=== PATIENT | male | born 1960 | race Caucasian/White ===

== ENCOUNTER 2017-10-28 08:34 | Outpatient (CLI) | payer BC ==
[2017-10-28] MEDS ORDERED: Gadobenate Dimeglumine 529 MG/1 ML (20ML VIAL) ONE (17:00)
== END 2017-10-28 08:35 | disposition home or self-care (01) ==
LOC: BICMRI 08:34
PROVIDERS: ATTEND Specialist
DX: M54.12 Radiculopathy, cervical region (principal); M48.02 Spinal stenosis, cervical region; M99.81 Other biomechanical lesions of cervical region; M96.1 Postlaminectomy syndrome, not elsewhere classified; M51.16 Intervertebral disc disorders with radiculopathy, lumbar region; M99.83 Other biomechanical lesions of lumbar region; Z98.1 Arthrodesis status
CPT/HCPCS: 72141; 72158; A9579

== ENCOUNTER 2018-10-17 19:57 | Emergency (ER) | payer MEDICARE, BC ==
[2018-10-17 20:37] LABS: #Eosinphils 0.1 thou/uL (0.0-0.7); #Monocytes 0.5 thou/uL (0.11-0.59); #Neutrophils 9.1 thou/uL (1.40-6.50); %Basophils 0.1 % (0.0-1.0); %Eosinophils 1.3 % (0.0-10.0); %Lymphocytes 9.2 % (21.0-51.0); %Neutrophils 84.4 % (42.0-75.0); Hemoglobin 11.1 g/dL (14.0-18.0); Mean Corpuscular HGB CONC 34.4 g/dL (32.0-36.0); Mean Corpuscular Hemoglobin 28.3 pg (27.0-31.0); Mean Corpuscular Volume 82.2 fL (78.0-98.0); Mean Platelet Volume 7.1 fL (7.4-10.4); Platelet Count 202 thou/uL (130-400); RBC Distribution Width 13.2 % (11.5-14.5); Red Blood Cell (RBC) Count 3.93 mill/uL (4.70-6.10); White Blood Cell (WBC) Count 10.8 thou/uL (4.8-10.8)
--- NOTE | 2018-10-17 20:54 | CT ---
CT ABDOMEN AND PELVIS WITHOUT IV CONTRAST: HISTORY: Dysuria. Flank pain. FINDINGS: The lung bases are clear. Status post cholecystectomy. Mild fatty changes in the liver. The visual ized pancreas, spleen, and adrenal glands are unremarkable. There is no evidence for renal calculus or acute obstruction. There is some minimal bilateral perirenal fat stranding, which is more dustin ed on the left side. This is a nonspecific finding but could potentially be seen in cases of left re nal infection or inflammation, including pyelonephritis. Multilevel laminectomy changes of the lumba r spine. Normal appearing appendix. Unremarkable appearing urinary bladder with numerous post surgi joann changes in the pelvis. IMPRESSION: 1. Left perirenal nonspecific fat stranding without calculus or genitourinary obstruction, although this certainly is a finding that could be seen with left renal infection or inflammation, including p yelonephritis. 2. Normal appearing appendix. 3. Postoperative laminectomy changes. 4. Postoperative cholecystectomy without dictation dilatation. 5. Fatty changes in the liver. 6. Post surgical changes in the pelvis. POS: NASRA
[2018-10-17 20:59] LABS: ALT (SGPT) 35 U/L (8-55); AST (SGOT) 17 U/L (5-34); Albumin 3.4 g/dL (3.5-5.0); Alkaline Phosphatase 212 U/L (40-150); Anion Gap 17 mmol/L (10-20); BUN (Urea Nitrogen) 20 mg/dL (8.4-25.7); Bilirubin, Total 0.6 mg/dL (0.2-1.2); Calc. Creatinine Clearance 0 mL/min (70-130); Calcium 8.8 mg/dL (7.8-10.44); Carbon Dioxide 22 mmol/L (22-29); Chloride 92 mmol/L (98-107); Estimated GFR-MDRD 62; Glucose 545 mg/dL (70-105); Protein, Total 6.4 g/dL (6.0-8.3); Sodium 127 mmol/L (136-145)
[2018-10-17 21:28] LABS: Bilirubin Negative (Negative); Blood, Urine Small (Negative); Clarity CLEAR (Clear); Glucose, Urine (Dipstick) >=1000 mg/dL (Negative); Leukocyte Negative (Negative); Nitrite Negative (Negative); Protein, Urine (Dipstick) Negative (Neg-Trace); Specific Gravity, Urine 1.025 (1.002-1.036)
[2018-10-17 21:31] LABS: Pathc Cast-AUWi Flag 0.14 (0-2.49)
[2018-10-17 21:39] LABS: Bacteria/HPF None Seen HPF (None Seen); Hyaline Casts/LPF 0-3 HYALINE CAST LPF (0-3 Hyaline); RBC/HPF 0-3 HPF (0-3); Squamous Epithelial 0-3 HPF (0-3); WBC/HPF 0-3 HPF (0-3)
== END 2018-10-17 22:27 | disposition home or self-care (01) ==
LOC: ERS 19:57
DX: R30.0 Dysuria (principal); R11.2 Nausea with vomiting, unspecified; R50.9 Fever, unspecified; E11.9 Type 2 diabetes mellitus without complications; Z79.899 Other long term (current) drug therapy
CPT/HCPCS: 36415; 74176; 80053; 81003; 81015; 85025; 87086

== ENCOUNTER 2018-11-29 00:48 | Outpatient (CLI) | payer MEDICARE, BC ==
[2018-11-29 14:47] LABS: Hemoglobin 12.1 g/dL (14.0-18.0); Mean Corpuscular HGB CONC 33.7 g/dL (32.0-36.0); Mean Corpuscular Hemoglobin 26.9 pg (27.0-31.0); Mean Platelet Volume 7.4 fL (7.4-10.4); Platelet Count 186 thou/uL (130-400); RBC Distribution Width 13.1 % (11.5-14.5); Red Blood Cell (RBC) Count 4.51 mill/uL (4.70-6.10); White Blood Cell (WBC) Count 5.7 thou/uL (4.8-10.8)
[2018-11-29 14:56] LABS: PTT 24.9 SEC (22.9-36.1); Prothrombin Time 13.6 SEC (12.0-14.7)
[2018-11-29 15:00] LABS: Anion Gap 17 mmol/L (10-20); BUN (Urea Nitrogen) 15 mg/dL (8.4-25.7); Calc. Creatinine Clearance 0 mL/min (70-130); Calcium 9.2 mg/dL (7.8-10.44); Carbon Dioxide 23 mmol/L (22-29); Chloride 98 mmol/L (98-107); Estimated GFR-MDRD 80; Glucose 406 mg/dL (70-105); Potassium 4.6 mmol/L (3.5-5.1); Sodium 133 mmol/L (136-145)
== END 2018-11-29 00:49 | disposition home or self-care (01) ==
LOC: LABBT 00:48
PROVIDERS: ATTEND Urology
DX: Z01.812 Encounter for preprocedural laboratory examination (principal); R31.9 Hematuria, unspecified; N35.919 Unspecified urethral stricture, male, unspecified site
CPT/HCPCS: 80048; 85027; 85610; 85730

== ENCOUNTER 2018-12-06 05:44 | Day surgery (SDC) | payer MEDICARE, BC ==
[2018-11-29 13:50] VITALS: BMI 36.6
[2018-12-06] MEDS ORDERED: Ioversol 68 % 50 ML VIAL ONE (06:52)
[2018-12-06] MEDS ORDERED: Fentanyl 100 MCG/2 ML VIAL ONE (07:16)
[2018-12-06] MEDS ORDERED: Hydrocortisone Sod Succ/PF 100 mg/2 ml Vial ONE (07:19)
[2018-12-06] MEDS ORDERED: Furosemide 20 MG/2 ML VIAL ONE (08:17)
--- NOTE | 2018-12-06 10:56 | OP ---
DATE OF PROCEDURE: 12/06/2018 PREOPERATIVE DIAGNOSES: Microhematuria, urethral stricture, and history of some left flank discomfort. POSTOPERATIVE DIAGNOSES: Microhematuria, urethral stricture, and history of some left flank discomfort. PROCEDURE PERFORMED: Cysto visual internal urethrotomy. ANESTHESIA: General. ESTIMATED BLOOD LOSS: Minimal. DRAINS PLACED: An 18-Guyanese [place] tip. FINDINGS: He had a stricture of the bulb. It was an annular stricture, probably 3 sections with some narrowing between each of those, probably measuring between half a cm and a cm in length. There was minimal if any stricture at the anastomosis. Some slightly roughened tissue on the floor in this region. There was 1+ trabeculation as a bladder synechiae. There was no tumor, foreign body, or stone. I could not identify the ureteral orifices using the 30 degree to 70 degree and a flexible cystoscope, although my assumption is on flexible cystoscope that there probably just inside the bladder neck lip. In reviewing Dr. Bain's OR note from the radical prostatectomy, they were very close to the anastomosis. They did not appear to be at the anastomosis and could not find anything there that looks like a ureteral orifice. The patient was given some methylene blue and some Lasix, but still could not see the ureteral orifices, could not even really adequately see any methylene blue exiting anywhere. After leaving this for an hour, we went ahead and just passed a Dunlap catheter. DESCRIPTION OF PROCEDURE: Obtained written and verbal consent from the patient. He was taken to the operating suite. He was placed in the supine position on the treatment table. PlexiPulse was placed in his lower extremities and turned on. He was given a general anesthetic and oral obturator intubation. He was placed in a dorsal lithotomy position and sterilely prepped and draped. Cystoscopy was performed with a 22-Guyanese sheath was passed down to the level of the stricture and a guidewire was fed across this. This was a stricture of the bulb. The guidewire easily passed through this. We then brought in our VIU set over the guidewire and used VIU to cut just at the 12 o'clock position to get through this region and then into the bladder. There was not any significant amount of stricture at the anastomosis. At this point, these instruments were removed and we replaced them with a 17-Guyanese sheath, which went easily and then up to a 20-Guyanese sheath, which went easily and then up to 22-Guyanese sheath, which went easily. The bladder was filled and emptied number of times being examined with both 30- and 70-degree lens. Findings were as above. The patient was given some methylene blue and some Lasix. I could not see any ureteral orifices. The flexible scope was brought in and could not adequately see the ureteral orifices in order to do a retrograde study of either of them. Just based on the bladder neck location in the patient's bladder itself, when we retroverted the scope to look at the bladder neck region, we could never really get close enough to for 100% sure identify the ureteral orifices, but there did appear to be 2 areas that were likely the ureteral orifices just inside the lip of the bladder neck region, which would not allow us to see them with a 30-70 degree lens. At this point, it was clear we were not going to be able to do retrograde studies, so over the existing guidewire, we passed an 18-Guyanese [place] tip catheter, placed 20 mL in the balloon and swept up to gravity. He was taken out of the dorsal lithotomy position. He was awakened, extubated, and taken by stretcher to recovery room. Job ID: [id number]
[2018-12-06] MEDS ORDERED: Ondansetron PF 4 MG/2 ML Vial ONE (16:11)
[2018-12-06] MEDS ORDERED: PROPOFOL 200 MG/20 ML VIAL ONE (16:11)
[2018-12-06] MEDS ORDERED: Lidocaine 1% PF 5 ML VIAL ONE (16:11)
[2018-12-06] MEDS ORDERED: PHENYLEPHRINE-NS 100 MCG/ML 10 ML SYRINGE ONE (16:11)
== END 2018-12-06 11:30 | disposition home or self-care (01) ==
LOC: SDC 05:44
PROVIDERS: ATTEND Urology
PROC: 0TND8ZZ Release Urethra, Via Natural or Artificial Opening Endoscopic (ICD-10-PCS; principal; 2018-12-06)
DX: N35.912 Unspecified bulbous urethral stricture, male (principal); N32.89 Other specified disorders of bladder; E11.9 Type 2 diabetes mellitus without complications; I10 Essential (primary) hypertension; Z79.84 Long term (current) use of oral hypoglycemic drugs; Z79.899 Other long term (current) drug therapy; Z91.041 Radiographic dye allergy status
CPT/HCPCS: 52276; 76000; 82962; 93005; Q9968; 36416; 93010; C1758; J1720; J1940; J2001; J2405; J2704; J3010; J3490; Q9967

== ENCOUNTER 2019-09-26 13:14 | Outpatient (CLI) | payer MEDICARE, BC ==
--- NOTE | 2019-09-26 15:12 | MRI ---
MR the lumbar spine without contrast: 09/26/2019 History: Bilateral leg weakness, left greater than right, bilateral lower extremity radiculopathy COMPARISON: 12/02/2013 TECHNIQUE: Multiplanar multisequence MR images were obtained of lumbar spine without IV contrast FINDINGS: On the basis of 5 lumbar type vertebral bodies, conus medullaris terminates at theL1 level. Sagittal STIR imaging demonstrates no focal area of osseous marrow edema. The patient has undergone e xtensive bilateral laminectomy when compared to the prior examination extending from the L2 level through the lumbosacral junction. T11-12: There is stable disc space narrowing and disc desiccation with disc bulge and bilateral facet hypertrophy. Stable mild bilateral neural foraminal stenosis. Stable mild/moderate central canal stenosis. T12-L1:Intervertebral disc height and signal intensity within normal limits with no significant centr al canal or neural foraminal stenosis. L1-2:Disc space narrowing with disc desiccation and mild disc bulge. Mild bilateral facet hypertrophy . No significant central canal or neural foraminal stenosis. L2-3:There is disc desiccation and disc space narrowing. There is a small central disc protrusion wit h mild superior migration. No significant central canal stenosis. No significant neural foraminal stenosis on either side. L3-4:There is disc space narrowing with disc desiccation and small disc bulge. Bilateral facet hypert rophy noted. There has been prominent interval progression of degenerative endplate change with progression of disc space narrowing and disc desiccation. There is mild/moderate bilateral neural for aminal stenosis, right greater than left, progressed since the prior exam. There is mild new anterolisthesis at L3-4 measuring approximately 3-4 mm. L4-5:There is disc space narrowing with disc desiccation and mild disc bulge, progressed since the pr ior exam. No central canal stenosis. Vacuum disc formation noted. Bilateral facet hypertrophy noted, left greater than right. Mild right and moderate/severe left neural foraminal stenosis, progre ssed bilaterally when compared to the prior examination. L5-S1:Bilateral facet hypertrophy, right greater than left. There is disc space narrowing and disc de siccation with disc bulge. There is mild central canal stenosis. There is severe right and mild/moderate left neural foraminal stenosis, progressed bilaterally when compared to prior imaging. Image retroperitoneal structures demonstrateno acute findings. IMPRESSION: Multilevel interval bilateral laminectomy involving the majority of the lumbar spine. No significant central canal stenosis is noted on this exam. There is extensive multilevel significant neural foraminal stenosis, progressed since the prior examination.
== END 2019-09-26 13:15 | disposition home or self-care (01) ==
LOC: MRI 13:14
PROVIDERS: ATTEND Nurse Practitioner Family
DX: M51.16 Intervertebral disc disorders with radiculopathy, lumbar region (principal); M48.061 Spinal stenosis, lumbar region without neurogenic claudication; Z98.890 Other specified postprocedural states
CPT/HCPCS: 72148

== ENCOUNTER 2019-10-18 14:13 | Outpatient (CLI) | payer MEDICARE, BC ==
--- NOTE | 2019-10-18 14:41 | RAD ---
LUMBAR SPINE 4 VIEWS: HISTORY: Spondylolisthesis. COMPARISON: None. FINDINGS: AP, lateral neutral, lateral flexion and lateral extension views demonstrate 5 lumbar type vertebra. Lumbar spine vertebral body height is maintained. No fracture. Moderate loss of disc space height and osteophyte formation at L3-L4. Mild loss of disc space and osteophyte formation at L1-L2 and L4-L 5. Spondylolisthesis: L4-L5 3.1 mm of anterolisthesis; extension 3.1 mm of anterolisthesis of L4 upon L5 and flexion 3.4 mm of anterolisthesis. Extensive laminectomy defect at L2, L3, L4 and L5. Visualized sacrum and bony pelvis are intact. IMPRESSION: 1. Grade 1 anterolisthesis of L4 upon L5. 2. Extensive postsurgical changes. Transcribed Date/Time: 10/18/2019 2:48 PM
== END 2019-10-18 14:14 | disposition home or self-care (01) ==
LOC: RAD 14:13
PROVIDERS: ATTEND Specialist
DX: M43.16 Spondylolisthesis, lumbar region (principal); Z98.890 Other specified postprocedural states
CPT/HCPCS: 72110

== ENCOUNTER 2020-10-26 10:44 | Outpatient (CLI) | payer MEDICARE, BC | END 2020-10-26 10:45 | disposition home or self-care (01) | LOC: TBSIIMAG 10:44 | PROVIDERS: ATTEND Neurological Surgery | DX: M47.22 Other spondylosis with radiculopathy, cervical region (principal) | CPT/HCPCS: 72141 ==

== ENCOUNTER 2022-04-09 22:53 | Inpatient (IN) | payer MEDICARE, BC ==
[2022-04-09] MEDS ORDERED: Ondansetron PF 4 MG/2 ML Vial IVP PRN (23:21)
[2022-04-09] MEDS ORDERED: Acetaminophen 325 MG TAB PO PRN (23:21)
[2022-04-09] MEDS ORDERED: Bisacodyl 10 MG SUPP PR PRN (23:21)
[2022-04-09] MEDS ORDERED: diphenhydrAMINE 25 MG CAP PO PRN (23:21)
[2022-04-09] MEDS ORDERED: Acetaminophen/Codeine 30-300mg Tablet PO PRN (23:21)
[2022-04-10 01:58] VITALS: BMI 40.1
[2022-04-10] MEDS: Morphine 2 MG/ML VIAL SLOW IVP PRN ×2 (02:10→05:19)
[2022-04-10] MEDS: Acetaminophen/Codeine 30-300mg Tablet PO PRN ×2 (02:13→05:20)
[2022-04-10 04:01] LABS: SARS-CoV-2 NAA Rapid Test DETECTED (NotDetected)
[2022-04-10] MEDS: Dexamethasone 4 MG TAB PO SCH ×3 (05:21→17:16)
[2022-04-10] MEDS ORDERED: HYDROcodone/Acetaminophen 7.5/325 mg Tablet PO PRN ×2 (06:14)
[2022-04-10] MEDS ORDERED: oxyCODONE/Acetaminophen 5 mg/325 mg Tablet PO PRN (06:42)
[2022-04-10] MEDS: Morphine 4 MG/ML VIAL SLOW IVP PRN ×3 (08:48→20:49)
[2022-04-10] MEDS ORDERED: Thrombin 5000 UNITS/5 ML VIAL ONE (10:13)
[2022-04-10] MEDS ORDERED: EPINEPHrine 1 MG/ML AMP ONE (10:13)
[2022-04-10] MEDS ORDERED: Bupivacaine PF 0.5% 30 ML VIAL ONE (10:13)
[2022-04-10] MEDS ORDERED: fentaNYL Citrate/PF 100 MCG/2 ML SYRINGE ONE ×2 (10:18→12:05)
[2022-04-10] MEDS ORDERED: Lidocaine 1% PF 5 ML VIAL ONE (11:03)
[2022-04-10] MEDS ORDERED: Phenylephrine 10 MG/ML VIAL ONE (11:03)
[2022-04-10] MEDS ORDERED: ePHEDrine 50 MG/ML VIAL ONE (11:03)
[2022-04-10] MEDS ORDERED: Albuterol Sulfate HFA (OR ONLY) ONE ×2 (11:03→11:30)
[2022-04-10] MEDS ORDERED: Ondansetron PF 4 MG/2 ML Vial ONE (11:03)
[2022-04-10] MEDS ORDERED: Rocuronium Bromide 10 MG/ML (10ML VIAL) ONE (11:03)
[2022-04-10] MEDS ORDERED: PROPOFOL 200 MG/20 ML VIAL ONE (11:03)
[2022-04-10] MEDS ORDERED: METHadone HCl 10 MG TAB PO SCH (12:00)
[2022-04-10] MEDS ORDERED: SUGAMMADEX SODIUM 200 MG/2 ML VIAL ONE (12:20)
[2022-04-10] MEDS ORDERED: Promethazine HCl 25 MG/ML VIAL IM PRN (12:50)
[2022-04-10] MEDS ORDERED: Ondansetron HCl/PF 4 MG/2 ML Vial IVP PRN (12:50)
[2022-04-10] MEDS ORDERED: Promethazine HCl 25 MG/ML VIAL IVPB PRN (12:50)
[2022-04-10] MEDS ORDERED: Fentanyl 100 MCG/2 ML VIAL ONE (13:06)
[2022-04-10] MEDS: CEFAZOLIN 2 GM in Sodium Chloride 0.9% 100 ML IVPB SCH ×2 (13:59→20:52)
[2022-04-10] MEDS: Gabapentin 300 MG CAP PO SCH ×2 (14:00→20:47)
[2022-04-10] MEDS: Sodium Chloride 0.9% 1,000 ML IV SCH (14:01)
[2022-04-10] MEDS: METHadone HCl 10 MG TAB PO SCH ×3 (14:01→20:48)
[2022-04-10] MEDS: Cyclobenzaprine 10 MG TAB PO PRN (14:19)
[2022-04-10] MEDS ORDERED: Non-Formulary Item 1 EACH (Gabapentin [Gabapentin] 600 MG Tablet) PO SCH (15:00)
[2022-04-10] MEDS: metFORMIN 500 MG TAB PO SCH (17:16)
[2022-04-10] MEDS: oxyCODONE/Acetaminophen 5 mg/325 mg Tablet PO PRN (17:17)
[2022-04-10] MEDS ORDERED: Dextrose 50% Abboject 50 ML SYRINGE SLOW IVP PRN (17:37)
[2022-04-10] MEDS ORDERED: Dextrose 5% in Water 1,000 ML IV PRN (17:37)
[2022-04-10] MEDS: Insulin Glargine 30 UNITS/0.3 ML VIAL SC SCH (20:55)
[2022-04-11] MEDS: Dexamethasone 4 MG TAB PO SCH ×4 (00:11→18:59)
[2022-04-11] MEDS: oxyCODONE/Acetaminophen 5 mg/325 mg Tablet PO PRN ×2 (00:11→21:22)
[2022-04-11] MEDS: METHadone HCl 10 MG TAB PO SCH ×6 (00:12→22:42)
[2022-04-11] MEDS: Sodium Chloride 0.9% 1,000 ML IV SCH ×2 (05:22→19:07)
[2022-04-11] MEDS: Morphine 4 MG/ML VIAL SLOW IVP PRN ×2 (05:23→21:26)
[2022-04-11] MEDS ORDERED: Triamterene/Hydrochlorothiazide 37.5 mg/25 mg Tablet PO SCH (09:00)
[2022-04-11] MEDS: Gabapentin 300 MG CAP PO SCH ×3 (09:18→21:23)
[2022-04-11] MEDS: Enoxaparin Sodium 40 MG/0.4 ML SYRINGE SC SCH ×2 (09:18→21:27)
[2022-04-11] MEDS: metFORMIN 500 MG TAB PO SCH ×2 (09:19→19:00)
[2022-04-11] MEDS: Ascorbic Acid 500 mg Chewable Tablet PO SCH (09:20)
[2022-04-11] MEDS: Citalopram 20 MG TAB PO SCH (09:20)
[2022-04-11] MEDS: Zinc Sulfate 220 MG CAP PO SCH (09:20)
[2022-04-11] MEDS: Fenofibrate Nanocrystallized 145 MG TAB PO SCH (09:21)
[2022-04-11] MEDS: Insulin Glargine 30 UNITS/0.3 ML VIAL SC SCH ×2 (09:26→21:27)
[2022-04-11] MEDS: Cyclobenzaprine 10 MG TAB PO PRN (22:42)
[2022-04-12] MEDS: METHadone HCl 10 MG TAB PO SCH ×6 (01:09→21:17)
[2022-04-12] MEDS: Dexamethasone 4 MG TAB PO SCH ×4 (01:09→18:33)
[2022-04-12] MEDS: oxyCODONE/Acetaminophen 5 mg/325 mg Tablet PO PRN ×2 (04:14→14:21)
[2022-04-12] MEDS: Sodium Chloride 0.9% 1,000 ML IV SCH ×2 (04:14→18:33)
[2022-04-12] MEDS: Morphine 4 MG/ML VIAL SLOW IVP PRN (05:41)
[2022-04-12] MEDS: Citalopram 20 MG TAB PO SCH (09:19)
[2022-04-12] MEDS: Ascorbic Acid 500 mg Chewable Tablet PO SCH (09:20)
[2022-04-12] MEDS: Zinc Sulfate 220 MG CAP PO SCH (09:20)
[2022-04-12] MEDS: Enoxaparin Sodium 40 MG/0.4 ML SYRINGE SC SCH ×2 (09:20→21:17)
[2022-04-12] MEDS: metFORMIN 500 MG TAB PO SCH ×2 (09:20→18:32)
[2022-04-12] MEDS: Insulin Glargine 30 UNITS/0.3 ML VIAL SC SCH ×2 (09:20→21:17)
[2022-04-12] MEDS: Gabapentin 300 MG CAP PO SCH ×3 (09:20→21:16)
[2022-04-12] MEDS: Fenofibrate Nanocrystallized 145 MG TAB PO SCH (10:18)
[2022-04-12] MEDS: HumaLOG 300 UNITS/3 ML VIAL SC PRN ×2 (12:26→18:34)
[2022-04-13] MEDS: Dexamethasone 4 MG TAB PO SCH ×4 (00:56→17:33)
[2022-04-13] MEDS: METHadone HCl 10 MG TAB PO SCH ×6 (00:56→21:02)
[2022-04-13 06:22] LABS: Platelet Count 201 thou/uL (130-400)
[2022-04-13 06:42] LABS: Anion Gap 14 mmol/L (10-20); BUN (Urea Nitrogen) 20 mg/dL (8.4-25.7); Calc. Creatinine Clearance 184 mL/min (70-130); Calcium 8.8 mg/dL (7.8-10.44); Carbon Dioxide 24 mmol/L (23-31); Chloride 101 mmol/L (98-107); Estimated GFR 101; Glucose 88 mg/dL (80-115); Potassium 4.4 mmol/L (3.5-5.1); Sodium 135 mmol/L (136-145)
[2022-04-13] MEDS: Sodium Chloride 0.9% 1,000 ML IV SCH ×2 (08:54→23:09)
[2022-04-13] MEDS: Gabapentin 300 MG CAP PO SCH ×3 (08:56→21:03)
[2022-04-13] MEDS: Ascorbic Acid 500 mg Chewable Tablet PO SCH (08:56)
[2022-04-13] MEDS: Citalopram 20 MG TAB PO SCH (08:57)
[2022-04-13] MEDS: Fenofibrate Nanocrystallized 145 MG TAB PO SCH (08:57)
[2022-04-13] MEDS: metFORMIN 500 MG TAB PO SCH ×2 (08:57→17:33)
[2022-04-13] MEDS: Enoxaparin Sodium 40 MG/0.4 ML SYRINGE SC SCH ×2 (08:58→21:02)
[2022-04-13] MEDS: Zinc Sulfate 220 MG CAP PO SCH (08:58)
[2022-04-13] MEDS: Insulin Glargine 30 UNITS/0.3 ML VIAL SC SCH ×2 (08:58→21:04)
[2022-04-14] MEDS: Dexamethasone 4 MG TAB PO SCH ×4 (01:04→17:53)
[2022-04-14] MEDS: METHadone HCl 10 MG TAB PO SCH ×6 (01:05→20:27)
[2022-04-14] MEDS: Ascorbic Acid 500 mg Chewable Tablet PO SCH (10:33)
[2022-04-14] MEDS: Gabapentin 300 MG CAP PO SCH ×3 (10:34→20:26)
[2022-04-14] MEDS: Fenofibrate Nanocrystallized 145 MG TAB PO SCH (10:34)
[2022-04-14] MEDS: Citalopram 20 MG TAB PO SCH (10:35)
[2022-04-14] MEDS: Zinc Sulfate 220 MG CAP PO SCH (10:35)
[2022-04-14] MEDS: metFORMIN 500 MG TAB PO SCH ×2 (10:35→17:52)
[2022-04-14] MEDS: Enoxaparin Sodium 40 MG/0.4 ML SYRINGE SC SCH ×2 (10:37→20:29)
[2022-04-14] MEDS: Insulin Glargine 30 UNITS/0.3 ML VIAL SC SCH ×2 (12:16→20:28)
[2022-04-14] MEDS: tiZANidine HCl 4 MG TAB PO SCH ×2 (13:08→20:27)
[2022-04-14] MEDS: Morphine 4 MG/ML VIAL SLOW IVP PRN (20:25)
[2022-04-14] MEDS: HumaLOG 300 UNITS/3 ML VIAL SC PRN (20:30)
[2022-04-15] MEDS: Morphine 4 MG/ML VIAL SLOW IVP PRN ×3 (00:20→21:14)
[2022-04-15] MEDS: METHadone HCl 10 MG TAB PO SCH ×6 (05:41→21:13)
[2022-04-15] MEDS: Dexamethasone 4 MG TAB PO SCH ×4 (05:41→17:24)
[2022-04-15] MEDS: oxyCODONE/Acetaminophen 5 mg/325 mg Tablet PO PRN ×2 (06:43→17:24)
[2022-04-15] MEDS: metFORMIN 500 MG TAB PO SCH ×2 (08:11→15:42)
[2022-04-15] MEDS: Ascorbic Acid 500 mg Chewable Tablet PO SCH (08:12)
[2022-04-15] MEDS: Citalopram 20 MG TAB PO SCH (08:13)
[2022-04-15] MEDS: Enoxaparin Sodium 40 MG/0.4 ML SYRINGE SC SCH ×2 (08:13→21:11)
[2022-04-15] MEDS: Fenofibrate Nanocrystallized 145 MG TAB PO SCH (08:15)
[2022-04-15] MEDS: Gabapentin 300 MG CAP PO SCH ×3 (08:16→21:13)
[2022-04-15] MEDS: Insulin Glargine 30 UNITS/0.3 ML VIAL SC SCH ×2 (08:18→21:11)
[2022-04-15] MEDS: tiZANidine HCl 4 MG TAB PO SCH ×2 (08:21→21:12)
[2022-04-15] MEDS: Zinc Sulfate 220 MG CAP PO SCH (08:21)
[2022-04-15] MEDS: HumaLOG 300 UNITS/3 ML VIAL SC PRN ×3 (12:20→21:12)
[2022-04-16] MEDS: METHadone HCl 10 MG TAB PO SCH ×5 (00:30→16:29)
[2022-04-16] MEDS: Dexamethasone 4 MG TAB PO SCH ×4 (00:30→18:22)
[2022-04-16] MEDS: oxyCODONE/Acetaminophen 5 mg/325 mg Tablet PO PRN ×4 (00:30→18:22)
[2022-04-16] MEDS: metFORMIN 500 MG TAB PO SCH ×2 (09:05→16:29)
[2022-04-16] MEDS: Ascorbic Acid 500 mg Chewable Tablet PO SCH (09:07)
[2022-04-16] MEDS: Citalopram 20 MG TAB PO SCH (09:07)
[2022-04-16] MEDS: Zinc Sulfate 220 MG CAP PO SCH (09:07)
[2022-04-16] MEDS: Gabapentin 300 MG CAP PO SCH ×2 (09:07→15:03)
[2022-04-16] MEDS: Fenofibrate Nanocrystallized 145 MG TAB PO SCH (09:07)
[2022-04-16] MEDS: tiZANidine HCl 4 MG TAB PO SCH (09:07)
[2022-04-16] MEDS: Enoxaparin Sodium 40 MG/0.4 ML SYRINGE SC SCH (09:08)
[2022-04-16] MEDS: Insulin Glargine 30 UNITS/0.3 ML VIAL SC SCH (09:08)
[2022-04-16 10:16] LABS: SARS-CoV-2 NAA Rapid Test Not Detected (NotDetected)
[2022-04-16] MEDS: HumaLOG 300 UNITS/3 ML VIAL SC PRN ×2 (12:36→16:30)
[2022-04-16 16:53] VITALS: BP 149/88; TEMP 98.1
== END 2022-04-16 18:30 | disposition home or self-care (01) | DRG 518 ==
LOC: SJJU 22:53
PROVIDERS: ADMIT Neurological Surgery; ATTEND Family Medicine
PROC: 00NX0ZZ Release Thoracic Spinal Cord, Open Approach (ICD-10-PCS; principal; 2022-04-09)
DX: M48.04 Spinal stenosis, thoracic region (principal); U07.1 COVID-19; G99.2 Myelopathy in diseases classified elsewhere; Z68.41 Body mass index [BMI] 40.0-44.9, adult; D62 Acute posthemorrhagic anemia; G89.4 Chronic pain syndrome; E11.9 Type 2 diabetes mellitus without complications; I10 Essential (primary) hypertension; E66.01 Morbid (severe) obesity due to excess calories; Z96.611 Presence of right artificial shoulder joint; Z96.652 Presence of left artificial knee joint; Z90.49 Acquired absence of other specified parts of digestive tract
CPT/HCPCS: 36415; 36416; 72128; 72146; 72158; 76000; 80048; 80053; 81003; 81015; 85014; 85018; 85025; 85049; 93970; 96372; 96374; 96375; 97139; A9579; C1713; J0171; J0690; J1100; J1650; J1815; J2270; J2370; J2405; J2704; J3010; J3490; J7050; J8540; S0020; U0002; U0003; U0005

== ENCOUNTER 2022-09-01 13:43 | Inpatient (IN) | payer MEDICARE, BC ==
[2022-09-01 14:37] LABS: #Eosinphils 0.3 thou/uL (0.0-0.7); #Lymphocytes 1.6 thou/uL (1.20-3.40); #Monocytes 0.4 thou/uL (0.11-0.59); #Neutrophils 3.6 thou/uL (1.40-6.50); %Basophils 0.4 % (0.0-1.0); %Eosinophils 5.2 % (0.0-10.0); %Lymphocytes 26.4 % (21.0-51.0); %Monocytes 7.1 % (0.0-10.0); Hemoglobin 9.4 g/dL (14.0-18.0); Mean Corpuscular HGB CONC 31.3 g/dL (32.0-36.0); Mean Corpuscular Hemoglobin 26.3 pg (27.0-31.0); Mean Corpuscular Volume 83.8 fl (78.0-98.0); Mean Platelet Volume 7.3 fL (7.4-10.4); Platelet Count 253 10x3/uL (130-400); Red Blood Cell (RBC) Count 3.58 mill/uL (4.70-6.10)
[2022-09-01 14:57] LABS: ALT (SGPT) 14 U/L (8-55); AST (SGOT) 11 U/L (5-34); Albumin 3.8 g/dL (3.4-4.8); Alkaline Phosphatase 42 U/L (40-110); Anion Gap 16 mmol/L (10-20); BUN (Urea Nitrogen) 19 mg/dL (8.4-25.7); Bilirubin, Total 0.5 mg/dL (0.2-1.2); Calc. Creatinine Clearance 0 mL/min (70-130); Calcium 8.9 mg/dL (7.8-10.44); Carbon Dioxide 24 mmol/L (23-31); Chloride 103 mmol/L (98-107); Estimated GFR 60; Globulin 2.3 g/dL (2.4-3.5); Glucose 175 mg/dL (80-115); Potassium 4.7 mmol/L (3.5-5.1); Protein, Total 6.1 g/dL (5.8-8.1); Sodium 138 mmol/L (136-145)
[2022-09-01] MEDS ORDERED: Cefepime 2 GM VIAL ONE (17:49)
[2022-09-01] MEDS ORDERED: Vancomycin 1 GM/200 ML (FROZEN) BAG ONE (18:46)
[2022-09-01 18:50] LABS: Lactic Acid 1.7 mmol/L (0.5-2.2)
[2022-09-01] MEDS ORDERED: Dextrose 5% in Water 1,000 ML IV PRN (20:31)
[2022-09-01] MEDS ORDERED: Bisacodyl 5 MG TAB PO PRN (20:31)
[2022-09-01] MEDS ORDERED: Ondansetron PF 4 MG/2 ML Vial IVP PRN (20:31)
[2022-09-01] MEDS ORDERED: HumaLOG 300 UNITS/3 ML VIAL SC PRN (20:31)
[2022-09-01] MEDS ORDERED: Dextrose 50% Abboject 50 ML SYRINGE SLOW IVP PRN (20:31)
[2022-09-01] MEDS ORDERED: Acetaminophen 325 MG TAB PO PRN (20:31)
[2022-09-01] MEDS ORDERED: Zolpidem Tartrate 5 MG TAB PO PRN (20:31)
[2022-09-01] MEDS ORDERED: Morphine 4 MG/ML VIAL SLOW IVP PRN (20:34)
[2022-09-01] MEDS ORDERED: hydrALAZINE 20 MG/ML VIAL SLOW IVP PRN (20:34)
[2022-09-01] MEDS ORDERED: Vancomycin 1 GM in Premix Bag 1 BAG IVPB SCH (20:45)
[2022-09-01] MEDS ORDERED: Electrolyte Replacement Protocol 1 EACH FS SCH (20:45)
[2022-09-02] MEDS: Atorvastatin Calcium 40 MG TAB PO SCH ×2 (00:43→20:28)
[2022-09-02] MEDS: Gabapentin 300 MG CAP PO SCH ×4 (00:43→20:27)
[2022-09-02] MEDS: Apixaban 5 MG TAB PO SCH ×2 (00:43→09:14)
[2022-09-02] MEDS: HYDROcodone/Acetaminophen 7.5/325 mg Tablet PO PRN ×6 (00:48→20:28)
[2022-09-02] MEDS: METHadone HCl 10 MG TAB PO SCH ×7 (00:50→20:28)
[2022-09-02] MEDS: Insulin Glargine 30 UNITS/0.3 ML VIAL SC SCH ×3 (02:41→20:29)
[2022-09-02] MEDS ORDERED: Vancomycin 1.5 GRAM/300 ML BAG 1.5 GM in Premix Bag 1 BAG IVPB SCH (03:15)
[2022-09-02 04:45] VITALS: BMI 37.3
[2022-09-02] MEDS: Cefepime 1 GM in Sodium Chloride 0.9% 100 ML IVPB SCH ×2 (05:33→17:16)
[2022-09-02 07:30] LABS: #Eosinphils 0.4 thou/uL (0.0-0.7); #Lymphocytes 1.7 thou/uL (1.20-3.40); #Monocytes 0.3 thou/uL (0.11-0.59); %Basophils 0.3 % (0.0-1.0); %Eosinophils 9.1 % (0.0-10.0); %Lymphocytes 38.5 % (21.0-51.0); %Monocytes 7.5 % (0.0-10.0); %Neutrophils 44.6 % (42.0-75.0); Hemoglobin 9.3 g/dL (14.0-18.0); Mean Corpuscular HGB CONC 32.5 g/dL (32.0-36.0); Mean Corpuscular Volume 83.3 fl (78.0-98.0); Mean Platelet Volume 7.1 fL (7.4-10.4); Platelet Count 234 10x3/uL (130-400); RBC Distribution Width 15.1 % (11.5-14.5); Red Blood Cell (RBC) Count 3.43 mill/uL (4.70-6.10); White Blood Cell (WBC) Count 4.5 10x3/uL (4.8-10.8)
[2022-09-02 07:55] LABS: Albumin 3.6 g/dL (3.4-4.8); Anion Gap 12 mmol/L (10-20); BUN (Urea Nitrogen) 16 mg/dL (8.4-25.7); Calc. Creatinine Clearance 108 mL/min (70-130); Calcium 8.6 mg/dL (7.8-10.44); Carbon Dioxide 27 mmol/L (23-31); Chloride 104 mmol/L (98-107); Estimated GFR 64; Glucose 120 mg/dL (80-115); Phosphorus 4.5 mg/dL (2.3-4.7); Potassium 4.1 mmol/L (3.5-5.1); Sodium 139 mmol/L (136-145)
[2022-09-02] MEDS ORDERED: Enoxaparin Sodium 40 MG/0.4 ML SYRINGE SC SCH (09:00)
[2022-09-02] MEDS: metFORMIN 500 MG TAB PO SCH ×2 (09:14→17:14)
[2022-09-02] MEDS: Citalopram 20 MG TAB PO SCH (09:14)
[2022-09-02] MEDS ORDERED: Nystatin Powder 15 GM BOT TOP PRN (14:54)
[2022-09-02] MEDS: Vancomycin 1 GM in Premix Bag 1 BAG IVPB SCH (15:30)
[2022-09-02] MEDS: Nystatin Powder 15 GM BOT TOP SCH (17:16)
[2022-09-03] MEDS: HYDROcodone/Acetaminophen 7.5/325 mg Tablet PO PRN ×4 (01:56→22:01)
[2022-09-03] MEDS: METHadone HCl 10 MG TAB PO SCH ×5 (01:56→21:59)
[2022-09-03 02:47] LABS: Vancomycin, Trough 18.7 ug/mL
[2022-09-03] MEDS: Vancomycin 1 GM in Premix Bag 1 BAG IVPB SCH ×2 (03:33→15:43)
[2022-09-03] MEDS: Cefepime 1 GM in Sodium Chloride 0.9% 100 ML IVPB SCH (05:29)
[2022-09-03] MEDS: Nystatin Powder 15 GM BOT TOP SCH ×2 (08:35→22:06)
[2022-09-03] MEDS ORDERED: Fentanyl 250 MCG/5 ML VIAL ONE (13:18)
[2022-09-03] MEDS ORDERED: Bupivacaine/Epinephrine 0.25% 30 ML VIAL ONE (13:19)
[2022-09-03] MEDS ORDERED: Dexmedetomidine 200 MCG/2 ML VIAL ONE (13:28)
[2022-09-03] MEDS ORDERED: Ketamine 50 MG/ML (10ML VIAL) ONE (13:28)
[2022-09-03] MEDS ORDERED: Lidocaine 1% PF 5 ML VIAL ONE (13:42)
[2022-09-03] MEDS ORDERED: PROPOFOL 200 MG/20 ML VIAL ONE (13:42)
[2022-09-03] MEDS ORDERED: Fentanyl 100 MCG/2 ML VIAL ONE (14:24)
[2022-09-03] MEDS: Gabapentin 300 MG CAP PO SCH ×3 (15:05→22:01)
[2022-09-03] MEDS: metFORMIN 500 MG TAB PO SCH ×2 (15:05→16:52)
[2022-09-03] MEDS: Insulin Glargine 30 UNITS/0.3 ML VIAL SC SCH ×2 (15:06→22:06)
[2022-09-03] MEDS: Citalopram 20 MG TAB PO SCH (15:44)
[2022-09-03] MEDS: Cefepime 2 GM in Sodium Chloride 0.9% 100 ML IVPB SCH (19:32)
[2022-09-03] MEDS: Atorvastatin Calcium 40 MG TAB PO SCH (22:01)
[2022-09-04] MEDS: METHadone HCl 10 MG TAB PO SCH ×6 (01:55→21:11)
[2022-09-04] MEDS: Vancomycin 1 GM in Premix Bag 1 BAG IVPB SCH (02:02)
[2022-09-04] MEDS: HYDROcodone/Acetaminophen 7.5/325 mg Tablet PO PRN ×5 (05:43→22:58)
[2022-09-04] MEDS: Cefepime 2 GM in Sodium Chloride 0.9% 100 ML IVPB SCH ×2 (05:45→18:06)
[2022-09-04] MEDS: metFORMIN 500 MG TAB PO SCH ×2 (08:48→16:39)
[2022-09-04] MEDS: Citalopram 20 MG TAB PO SCH (08:49)
[2022-09-04] MEDS: Gabapentin 300 MG CAP PO SCH ×3 (08:49→21:10)
[2022-09-04] MEDS: Insulin Glargine 30 UNITS/0.3 ML VIAL SC SCH ×2 (08:50→21:12)
[2022-09-04] MEDS: Nystatin Powder 15 GM BOT TOP SCH ×2 (08:52→21:11)
[2022-09-04 14:21] LABS: Vancomycin, Trough 20.1 ug/mL
[2022-09-04] MEDS: Atorvastatin Calcium 40 MG TAB PO SCH (21:11)
[2022-09-05] MEDS: METHadone HCl 10 MG TAB PO SCH ×6 (01:39→20:53)
[2022-09-05] MEDS: Vancomycin HCl 750 MG in Sodium Chloride 0.9% 250 ML 250 ML IVPB SCH ×2 (03:51→15:30)
[2022-09-05] MEDS: Cefepime 2 GM in Sodium Chloride 0.9% 100 ML IVPB SCH ×2 (05:54→17:30)
[2022-09-05] MEDS: Gabapentin 300 MG CAP PO SCH ×3 (08:25→20:53)
[2022-09-05] MEDS: metFORMIN 500 MG TAB PO SCH ×2 (08:25→17:31)
[2022-09-05] MEDS: Insulin Glargine 30 UNITS/0.3 ML VIAL SC SCH ×3 (08:26→20:53)
[2022-09-05] MEDS: Citalopram 20 MG TAB PO SCH (08:26)
[2022-09-05] MEDS: Nystatin Powder 15 GM BOT TOP SCH ×2 (08:28→21:02)
[2022-09-05] MEDS: HumaLOG 300 UNITS/3 ML VIAL SC PRN (17:32)
[2022-09-05] MEDS: Atorvastatin Calcium 40 MG TAB PO SCH (20:54)
[2022-09-06] MEDS: METHadone HCl 10 MG TAB PO SCH ×5 (01:12→16:02)
[2022-09-06] MEDS: HYDROcodone/Acetaminophen 7.5/325 mg Tablet PO PRN (04:26)
[2022-09-06] MEDS: Cefepime 2 GM in Sodium Chloride 0.9% 100 ML IVPB SCH (05:21)
[2022-09-06] MEDS: Nystatin Powder 15 GM BOT TOP SCH (08:18)
[2022-09-06] MEDS: Citalopram 20 MG TAB PO SCH (08:18)
[2022-09-06] MEDS: Gabapentin 300 MG CAP PO SCH ×2 (08:18→16:02)
[2022-09-06] MEDS: metFORMIN 500 MG TAB PO SCH ×2 (08:18→16:02)
[2022-09-06] MEDS: Insulin Glargine 30 UNITS/0.3 ML VIAL SC SCH (08:19)
[2022-09-06] MEDS: HumaLOG 300 UNITS/3 ML VIAL SC PRN (12:18)
[2022-09-06 17:38] VITALS: BP 125/73; TEMP 98.6
[2022-09-06] MEDS ORDERED: Ciprofloxacin 500 MG TAB PO SCH (20:00)
[2022-09-06] MEDS ORDERED: Amoxicillin/Potassium Clav 875 MG TAB PO SCH (21:00)
[2022-09-08] MEDS ORDERED: TIRZEPATIDE 5 MG/0.5 ML SC SCH (09:00)
== END 2022-09-06 18:11 | disposition home or self-care (01) | DRG 616 ==
LOC: ERS 13:43 → T4-B 20:34
PROVIDERS: ADMIT Internal Medicine; ATTEND Hospitalist
PROC: 0Y6M0ZD Detachment at Right Foot, Partial 4th Ray, Open Approach (ICD-10-PCS; principal; 2022-09-03)
DX: E11.69 Type 2 diabetes mellitus with other specified complication (principal); L89.894 Pressure ulcer of other site, stage 4; M86.8X7 Other osteomyelitis, ankle and foot; E11.52 Type 2 diabetes mellitus with diabetic peripheral angiopathy with gangrene; G82.20 Paraplegia, unspecified; E11.40 Type 2 diabetes mellitus with diabetic neuropathy, unspecified; G89.4 Chronic pain syndrome; N18.31 Chronic kidney disease, stage 3a; I12.9 Hypertensive chronic kidney disease with stage 1 through stage 4 chronic kidney disease, or unspecified chronic kidney disease; E11.22 Type 2 diabetes mellitus with diabetic chronic kidney disease; L97.519 Non-pressure chronic ulcer of other part of right foot with unspecified severity; L97.529 Non-pressure chronic ulcer of other part of left foot with unspecified severity; E66.9 Obesity, unspecified; Z20.822 Contact with and (suspected) exposure to COVID-19; Z96.611 Presence of right artificial shoulder joint; Z96.652 Presence of left artificial knee joint; Z88.2 Allergy status to sulfonamides; Z91.018 Allergy to other foods; Z79.899 Other long term (current) drug therapy; Z68.37 Body mass index [BMI] 37.0-37.9, adult; Z89.421 Acquired absence of other right toe(s); Z85.46 Personal history of malignant neoplasm of prostate; Z79.84 Long term (current) use of oral hypoglycemic drugs; Z79.82 Long term (current) use of aspirin; Z98.890 Other specified postprocedural states; Z90.49 Acquired absence of other specified parts of digestive tract; Z90.79 Acquired absence of other genital organ(s); Z99.3 Dependence on wheelchair
CPT/HCPCS: 36415; 36416; 80053; 80069; 80202; 83605; 85025; 85652; 86140; 87070; 87076; 87077; 87186; 87205; 88305; 88311; 96374; 96375; 97139; J0692; J1815; J2704; J3010; J3370; J3370-JW; J3490; J7050; U0003; U0005

== ENCOUNTER 2022-09-08 14:26 | Observation (INO) | payer MEDICARE, BC ==
[2022-09-08 15:18] LABS: #Eosinphils 0.5 thou/uL (0.0-0.7); #Lymphocytes 1.4 thou/uL (1.20-3.40); #Monocytes 0.3 thou/uL (0.11-0.59); #Neutrophils 3.6 thou/uL (1.40-6.50); %Basophils 0.6 % (0.0-1.0); %Eosinophils 8.4 % (0.0-10.0); %Lymphocytes 24.4 % (21.0-51.0); %Monocytes 4.4 % (0.0-10.0); %Neutrophils 62.2 % (42.0-75.0); Hemoglobin 9.8 g/dL (14.0-18.0); Mean Corpuscular HGB CONC 32.3 g/dL (32.0-36.0); Mean Corpuscular Hemoglobin 26.8 pg (27.0-31.0); Mean Corpuscular Volume 82.9 fl (78.0-98.0); Mean Platelet Volume 8.7 fL (7.4-10.4); Platelet Count 153 10x3/uL (130-400); RBC Distribution Width 15.1 % (11.5-14.5); Red Blood Cell (RBC) Count 3.67 mill/uL (4.70-6.10); White Blood Cell (WBC) Count 5.8 10x3/uL (4.8-10.8)
[2022-09-08 15:37] LABS: ALT (SGPT) 14 U/L (8-55); AST (SGOT) 13 U/L (5-34); Alkaline Phosphatase 49 U/L (40-110); Anion Gap 14 mmol/L (10-20); BUN (Urea Nitrogen) 17 mg/dL (8.4-25.7); Bilirubin, Total 0.5 mg/dL (0.2-1.2); Calc. Creatinine Clearance 0 mL/min (70-130); Calcium 9.4 mg/dL (7.8-10.44); Carbon Dioxide 26 mmol/L (23-31); Chloride 99 mmol/L (98-107); Estimated GFR 61; Globulin 3.1 g/dL (2.4-3.5); Glucose 222 mg/dL (80-115); Potassium 4.4 mmol/L (3.5-5.1); Protein, Total 7.1 g/dL (5.8-8.1); Sodium 135 mmol/L (136-145)
[2022-09-08] MEDS ORDERED: Cefepime 2 GM VIAL ONE (18:26)
[2022-09-08 18:28] LABS: Lactic Acid 2.8 mmol/L (0.5-2.2)
[2022-09-08] MEDS ORDERED: Vancomycin 1.5 GRAM/300 ML BAG 1.5 GM in Premix Bag 1 BAG IVPB SCH (18:30)
[2022-09-08] MEDS ORDERED: HYDROcodone/Acetaminophen 5/325 mg Tablet PO PRN (22:47)
[2022-09-08] MEDS ORDERED: Senokot S 8.6-50 MG TAB PO PRN (22:47)
[2022-09-08] MEDS ORDERED: Bisacodyl 5 MG TAB PO PRN (22:47)
[2022-09-08] MEDS ORDERED: Ondansetron PF 4 MG/2 ML Vial IVP PRN (22:47)
[2022-09-08] MEDS ORDERED: Ondansetron ODT 4 MG TAB PO PRN (22:47)
[2022-09-08] MEDS ORDERED: Dextrose 50% Abboject 50 ML SYRINGE SLOW IVP PRN (22:47)
[2022-09-08] MEDS ORDERED: Dextrose 5% in Water 1,000 ML IV PRN (22:47)
[2022-09-08] MEDS ORDERED: Acetaminophen 325 MG TAB PO PRN (22:47)
[2022-09-08] MEDS ORDERED: HumaLOG 300 UNITS/3 ML VIAL SC PRN ×2 (22:48)
[2022-09-08 23:16] VITALS: BMI 24.2
[2022-09-09] MEDS ORDERED: Cefepime 1 GM in Sodium Chloride 0.9% 100 ML IVPB SCH (06:00)
[2022-09-09 06:32] LABS: #Eosinphils 0.4 thou/uL (0.0-0.7); #Lymphocytes 1.2 thou/uL (1.20-3.40); #Monocytes 0.3 thou/uL (0.11-0.59); #Neutrophils 2.2 thou/uL (1.40-6.50); %Basophils 0.3 % (0.0-1.0); %Eosinophils 8.8 % (0.0-10.0); %Lymphocytes 30.2 % (21.0-51.0); %Monocytes 7.8 % (0.0-10.0); Hemoglobin 9.3 g/dL (14.0-18.0); Mean Corpuscular HGB CONC 32.7 g/dL (32.0-36.0); Mean Corpuscular Hemoglobin 27.3 pg (27.0-31.0); Mean Corpuscular Volume 83.4 fl (78.0-98.0); Mean Platelet Volume 8.8 fL (7.4-10.4); Platelet Count 124 10x3/uL (130-400); RBC Distribution Width 15.1 % (11.5-14.5); Red Blood Cell (RBC) Count 3.39 mill/uL (4.70-6.10); White Blood Cell (WBC) Count 4.1 10x3/uL (4.8-10.8)
[2022-09-09 06:50] LABS: Anion Gap 12 mmol/L (10-20); BUN (Urea Nitrogen) 16 mg/dL (8.4-25.7); Calc. Creatinine Clearance 74 mL/min (70-130); Carbon Dioxide 30 mmol/L (23-31); Chloride 101 mmol/L (98-107); Estimated GFR 69; Glucose 149 mg/dL (80-115); Potassium 4.1 mmol/L (3.5-5.1); Sodium 139 mmol/L (136-145)
[2022-09-09] MEDS ORDERED: Vancomycin 1 GM in Premix Bag 1 BAG IVPB SCH (08:00)
[2022-09-09 10:01] LABS: SARS-CoV-2 NAA Rapid Test Not Detected (NotDetected)
[2022-09-09] MEDS ORDERED: Cefepime 2 GM in Sodium Chloride 0.9% 100 ML IVPB SCH (14:00)
[2022-09-09 16:10] VITALS: BP 159/76; TEMP 98.6
== END 2022-09-09 16:58 | disposition home or self-care (01) ==
LOC: ERS 14:26 → T4-B 19:02
PROVIDERS: ADMIT Hospitalist; ATTEND Hospitalist
PROC: 0JBQ0ZZ Excision of Right Foot Subcutaneous Tissue and Fascia, Open Approach (ICD-10-PCS; principal; 2022-09-09)
DX: I96 Gangrene, not elsewhere classified (principal); L89.619 Pressure ulcer of right heel, unspecified stage; L03.115 Cellulitis of right lower limb; E11.40 Type 2 diabetes mellitus with diabetic neuropathy, unspecified; E11.51 Type 2 diabetes mellitus with diabetic peripheral angiopathy without gangrene; I12.9 Hypertensive chronic kidney disease with stage 1 through stage 4 chronic kidney disease, or unspecified chronic kidney disease; E11.22 Type 2 diabetes mellitus with diabetic chronic kidney disease; N18.30 Chronic kidney disease, stage 3 unspecified; G89.4 Chronic pain syndrome; Z85.46 Personal history of malignant neoplasm of prostate; Z87.891 Personal history of nicotine dependence; Z79.01 Long term (current) use of anticoagulants; Z79.4 Long term (current) use of insulin; Z79.82 Long term (current) use of aspirin; Z79.84 Long term (current) use of oral hypoglycemic drugs; Z79.899 Other long term (current) drug therapy; Z88.2 Allergy status to sulfonamides; Z91.041 Radiographic dye allergy status; Z89.421 Acquired absence of other right toe(s); Z20.822 Contact with and (suspected) exposure to COVID-19
CPT/HCPCS: 11042; 73630; 73700; 80048; 80053; 82962 ×2; 83605; 85025 ×2; 85652; 86140; 87040; 96365; 96375; 97139 ×2; 97535; 99285; J3370 ×2; U0002; 36415; 36416; 96376; G0378; J0692; J1815; J3490

== ENCOUNTER 2023-01-01 21:37 | Inpatient (IN) | payer MEDICARE, BC ==
[2023-01-01] MEDS ORDERED: Cefepime 2 GM VIAL ONE (22:18)
[2023-01-01 22:23] LABS: #Lymphocytes 0.7 thou/uL (1.20-3.40); #Monocytes 0.5 thou/uL (0.11-0.59); #Neutrophils 10.5 thou/uL (1.40-6.50); %Eosinophils 0.4 % (0.0-10.0); %Lymphocytes 6.2 % (21.0-51.0); %Monocytes 4.4 % (0.0-10.0); Hemoglobin 11.5 g/dL (14.0-18.0); Mean Corpuscular HGB CONC 33.2 g/dL (32.0-36.0); Mean Corpuscular Hemoglobin 27.3 pg (27.0-31.0); Mean Corpuscular Volume 82.3 fl (78.0-98.0); Mean Platelet Volume 7.5 fL (7.4-10.4); Platelet Count 177 10x3/uL (130-400); White Blood Cell (WBC) Count 11.8 10x3/uL (4.8-10.8)
[2023-01-01] MEDS ORDERED: Acetaminophen 500 MG TAB ONE (22:36)
[2023-01-01 22:53] LABS: AST (SGOT) 20 U/L (5-34); Albumin 4.2 g/dL (3.4-4.8); Alkaline Phosphatase 35 U/L (40-110); Anion Gap 14 mmol/L (10-20); BUN (Urea Nitrogen) 27 mg/dL (8.4-25.7); Bilirubin, Total 0.6 mg/dL (0.2-1.2); Calc. Creatinine Clearance 0 mL/min (70-130); Calcium 8.9 mg/dL (7.8-10.44); Carbon Dioxide 24 mmol/L (23-31); Chloride 102 mmol/L (98-107); Estimated GFR 47; Globulin 2.4 g/dL (2.4-3.5); Glucose 190 mg/dL (80-115); Potassium 4.1 mmol/L (3.5-5.1); Protein, Total 6.6 g/dL (5.8-8.1); Sodium 136 mmol/L (136-145)
[2023-01-01 22:59] LABS: ALT (SGPT) 12 U/L (8-55); Lipase 7 U/L (8-78)
[2023-01-01] MEDS ORDERED: Vancomycin 1 GM/200 ML (FROZEN) BAG ONE (23:22)
[2023-01-02 00:31] LABS: Bilirubin Negative (Negative); Blood, Urine Negative (Negative); Clarity Clear (Clear); Glucose, Urine (Dipstick) Greater than 1000 mg/dL (Negative); Ketone, Urine 10 mg/dL (Negative); Leukocyte Negative Leu/uL (Negative); Nitrite Negative (Negative); Protein, Urine (Dipstick) Negative (Neg-Trace); Specific Gravity, Urine 1.026 (1.002-1.036); Urobilinogen Normal mg/dL (Less than 2); pH, Urine 5.5 (5.0-9.0)
[2023-01-02] MEDS ORDERED: Dextrose 50% Abboject 50 ML SYRINGE SLOW IVP PRN (01:09)
[2023-01-02] MEDS ORDERED: VANCOMYCIN IVPB PRN (01:09)
[2023-01-02] MEDS ORDERED: Ondansetron ODT 4 MG TAB PO PRN (01:09)
[2023-01-02] MEDS ORDERED: Ondansetron PF 4 MG/2 ML Vial IVP PRN (01:09)
[2023-01-02] MEDS ORDERED: HumaLOG 300 UNITS/3 ML VIAL SC PRN ×2 (01:09)
[2023-01-02] MEDS ORDERED: Dextrose 5% in Water 1,000 ML IV PRN (01:09)
[2023-01-02 02:10] LABS: SARS-CoV-2 NAA Rapid Test Not Detected (NotDetected)
[2023-01-02] MEDS: Bisacodyl 10 MG SUPP PR SCH ×3 (02:45→16:47)
[2023-01-02] MEDS ORDERED: Bisacodyl 10 MG SUPP ONE ×2 (02:46→10:08)
[2023-01-02 04:29] LABS: Hemoglobin 9.1 g/dL (14.0-18.0); Mean Corpuscular HGB CONC 33.3 g/dL (32.0-36.0); Mean Corpuscular Hemoglobin 27.7 pg (27.0-31.0); Mean Corpuscular Volume 83.2 fl (78.0-98.0); Mean Platelet Volume 8.3 fL (7.4-10.4); Platelet Count 149 10x3/uL (130-400); Red Blood Cell (RBC) Count 3.29 mill/uL (4.70-6.10); White Blood Cell (WBC) Count 14.8 10x3/uL (4.8-10.8)
[2023-01-02 04:53] LABS: Anion Gap 17 mmol/L (10-20); BUN (Urea Nitrogen) 24 mg/dL (8.4-25.7); Calc. Creatinine Clearance 0 mL/min (70-130); Calcium 8.4 mg/dL (7.8-10.44); Carbon Dioxide 20 mmol/L (23-31); Chloride 104 mmol/L (98-107); Estimated GFR 53; Glucose 143 mg/dL (80-115); Potassium 4.7 mmol/L (3.5-5.1); Sodium 136 mmol/L (136-145)
[2023-01-02 05:17] LABS: Band 12 % (5-11); Lymphocytes 7 % (21-51); MDiff Complete? YES; Monocytes 2 % (0-10); Neutrophil 79 % (42-75)
[2023-01-02] MEDS: Cefepime 2 GM in Sodium Chloride 0.9% 100 ML IVPB SCH ×2 (09:41→20:51)
[2023-01-02] MEDS ORDERED: Cefepime 2 GM VIAL ONE (10:07)
[2023-01-02] MEDS: Polyethylene Glycol 3350 17 GM Packet PO SCH (10:43)
[2023-01-02] MEDS ORDERED: Acetaminophen 325 MG TAB ONE (11:16)
[2023-01-02] MEDS: Acetaminophen 325 MG TAB PO PRN (11:18)
[2023-01-02] MEDS ORDERED: METHadone HCl 10 MG TAB PO SCH (13:00)
[2023-01-02] MEDS ORDERED: Non-Formulary Item 1 EACH (Oxycodone Hcl/Acetaminophen [Oxycodone-Acetaminophen 10-325] 1 PO PRN (13:00)
[2023-01-02] MEDS: Lactated Ringer's 1,000 ML IV SCH (13:34)
[2023-01-02 15:00] VITALS: BMI 29.2
[2023-01-02] MEDS ORDERED: Non-Formulary Item 1 EACH (Gabapentin [Gabapentin] 600 MG Tablet) PO SCH (15:00)
[2023-01-02] MEDS: Gabapentin 300 MG CAP PO SCH ×2 (16:36→20:52)
[2023-01-02] MEDS: VANCOMYCIN 1.75 GM/500 ML BAG 1.75 GM in Premix Bag 1 BAG IVPB SCH (16:36)
[2023-01-02] MEDS: METHadone HCl 10 MG TAB PO SCH ×2 (16:36→20:51)
[2023-01-02] MEDS: oxyCODONE/Acetaminophen 5 mg/325 mg Tablet PO PRN (20:50)
[2023-01-02] MEDS: Insulin Glargine 30 UNITS/0.3 ML VIAL SC SCH (20:52)
[2023-01-02] MEDS: Atorvastatin Calcium 40 MG TAB PO SCH (20:52)
[2023-01-02] MEDS: Apixaban 5 MG TAB PO SCH (20:52)
[2023-01-02] MEDS: Nystatin Powder 15 GM BOT TOP SCH (20:55)
[2023-01-02] MEDS ORDERED: Non-Formulary Item 1 EACH (Insulin Degludec [Tresiba Flextouch U-200] 200 UNIT/ML Insuln. SQ SCH (21:00)
[2023-01-02] MEDS ORDERED: Nystatin Powder 15 GM BOT TOP SCH (21:00)
[2023-01-02] MEDS ORDERED: Vancomycin 1 GM in Premix Bag 1 BAG IVPB SCH (21:00)
[2023-01-03] MEDS: METHadone HCl 10 MG TAB PO SCH ×6 (00:39→20:37)
[2023-01-03] MEDS: oxyCODONE/Acetaminophen 5 mg/325 mg Tablet PO PRN ×5 (00:40→20:38)
[2023-01-03] MEDS: Bisacodyl 10 MG SUPP PR SCH ×3 (03:48→17:21)
[2023-01-03] MEDS: Lactated Ringer's 1,000 ML IV SCH ×3 (03:48→20:39)
[2023-01-03 07:35] LABS: #Eosinphils 0.5 thou/uL (0.0-0.7); #Lymphocytes 1.5 thou/uL (1.20-3.40); #Monocytes 0.5 thou/uL (0.11-0.59); #Neutrophils 4.3 thou/uL (1.40-6.50); %Basophils 0.5 % (0.0-1.0); %Eosinophils 7.4 % (0.0-10.0); %Lymphocytes 21.5 % (21.0-51.0); %Monocytes 6.6 % (0.0-10.0); %Neutrophils 63.9 % (42.0-75.0); Hemoglobin 9.7 g/dL (14.0-18.0); Mean Corpuscular Hemoglobin 27.4 pg (27.0-31.0); Mean Corpuscular Volume 83.1 fl (78.0-98.0); Mean Platelet Volume 7.3 fL (7.4-10.4); Platelet Count 184 10x3/uL (130-400); RBC Distribution Width 13.8 % (11.5-14.5); Red Blood Cell (RBC) Count 3.55 mill/uL (4.70-6.10); White Blood Cell (WBC) Count 6.8 10x3/uL (4.8-10.8)
[2023-01-03 07:59] LABS: Anion Gap 14 mmol/L (10-20); BUN (Urea Nitrogen) 21 mg/dL (8.4-25.7); Calc. Creatinine Clearance 84 mL/min (70-130); Calcium 8.8 mg/dL (7.8-10.44); Carbon Dioxide 22 mmol/L (23-31); Chloride 105 mmol/L (98-107); Estimated GFR 64; Glucose 153 mg/dL (80-115); Sodium 137 mmol/L (136-145)
[2023-01-03] MEDS: Empagliflozin 25 MG TAB PO SCH (08:12)
[2023-01-03] MEDS: Fenofibrate Nanocrystallized 145 MG TAB PO SCH (08:12)
[2023-01-03] MEDS: Cefepime 2 GM in Sodium Chloride 0.9% 100 ML IVPB SCH ×2 (08:12→20:38)
[2023-01-03] MEDS: Aspirin Chewable 81 MG TAB PO SCH (08:12)
[2023-01-03] MEDS: Gabapentin 300 MG CAP PO SCH ×3 (08:12→20:36)
[2023-01-03] MEDS: Apixaban 5 MG TAB PO SCH ×2 (08:12→20:36)
[2023-01-03] MEDS: Insulin Glargine 30 UNITS/0.3 ML VIAL SC SCH ×2 (08:14→20:35)
[2023-01-03] MEDS: Polyethylene Glycol 3350 17 GM Packet PO SCH (08:15)
[2023-01-03] MEDS ORDERED: Non-Formulary Item 1 EACH (Omeprazole [Omeprazole] 40 MG Capsule.Dr) PO SCH (09:00)
[2023-01-03] MEDS ORDERED: Non-Formulary Item 1 EACH (Dapagliflozin Propanediol [Farxiga] 10 MG Tablet) PO SCH (09:00)
[2023-01-03] MEDS: Nystatin Powder 15 GM BOT TOP SCH ×2 (09:49→20:39)
[2023-01-03] MEDS: VANCOMYCIN 1.75 GM/500 ML BAG 1.75 GM in Premix Bag 1 BAG IVPB SCH (15:42)
[2023-01-03] MEDS: Atorvastatin Calcium 40 MG TAB PO SCH (20:36)
[2023-01-03] MEDS: Terbinafine 1% 30 GM TUBE TOP SCH (20:37)
[2023-01-04] MEDS: Bisacodyl 10 MG SUPP PR SCH ×3 (02:11→17:41)
[2023-01-04] MEDS: METHadone HCl 10 MG TAB PO SCH ×6 (02:11→20:55)
[2023-01-04] MEDS: oxyCODONE/Acetaminophen 5 mg/325 mg Tablet PO PRN ×5 (05:39→20:54)
[2023-01-04] MEDS: Lactated Ringer's 1,000 ML IV SCH ×2 (05:40→17:33)
[2023-01-04 07:27] LABS: #Eosinphils 0.7 thou/uL (0.0-0.7); #Lymphocytes 1.4 thou/uL (1.20-3.40); #Monocytes 0.3 thou/uL (0.11-0.59); #Neutrophils 3.1 thou/uL (1.40-6.50); %Basophils 0.5 % (0.0-1.0); %Eosinophils 12.3 % (0.0-10.0); %Lymphocytes 24.7 % (21.0-51.0); %Monocytes 5.5 % (0.0-10.0); %Neutrophils 56.9 % (42.0-75.0); Hemoglobin 10.2 g/dL (14.0-18.0); Mean Corpuscular HGB CONC 33.8 g/dL (32.0-36.0); Mean Corpuscular Hemoglobin 27.7 pg (27.0-31.0); Mean Corpuscular Volume 82.1 fl (78.0-98.0); Mean Platelet Volume 7.4 fL (7.4-10.4); Platelet Count 213 10x3/uL (130-400); RBC Distribution Width 13.9 % (11.5-14.5); Red Blood Cell (RBC) Count 3.68 mill/uL (4.70-6.10); White Blood Cell (WBC) Count 5.5 10x3/uL (4.8-10.8)
[2023-01-04 07:52] LABS: Anion Gap 13 mmol/L (10-20); BUN (Urea Nitrogen) 21 mg/dL (8.4-25.7); Calc. Creatinine Clearance 80 mL/min (70-130); Calcium 8.9 mg/dL (7.8-10.44); Carbon Dioxide 25 mmol/L (23-31); Chloride 106 mmol/L (98-107); Estimated GFR 60; Glucose 115 mg/dL (80-115); Potassium 4.3 mmol/L (3.5-5.1); Sodium 140 mmol/L (136-145)
[2023-01-04] MEDS: Gabapentin 300 MG CAP PO SCH ×3 (08:35→20:54)
[2023-01-04] MEDS: Empagliflozin 25 MG TAB PO SCH (08:38)
[2023-01-04] MEDS: Fenofibrate Nanocrystallized 145 MG TAB PO SCH (08:39)
[2023-01-04] MEDS: Aspirin Chewable 81 MG TAB PO SCH (08:39)
[2023-01-04] MEDS: Apixaban 5 MG TAB PO SCH ×2 (08:39→20:54)
[2023-01-04] MEDS: Cefepime 2 GM in Sodium Chloride 0.9% 100 ML IVPB SCH ×2 (08:41→20:57)
[2023-01-04] MEDS: Nystatin Powder 15 GM BOT TOP SCH ×2 (08:43→20:59)
[2023-01-04] MEDS: Polyethylene Glycol 3350 17 GM Packet PO SCH (08:45)
[2023-01-04] MEDS: Insulin Glargine 30 UNITS/0.3 ML VIAL SC SCH ×2 (09:02→21:13)
[2023-01-04] MEDS: Terbinafine 1% 30 GM TUBE TOP SCH ×2 (11:14→21:13)
[2023-01-04] MEDS ORDERED: Bisacodyl 10 MG SUPP PR PRN (15:47)
[2023-01-04] MEDS ORDERED: Bisacodyl 5 MG TAB PO PRN (15:48)
[2023-01-04 15:50] LABS: Vancomycin, Trough 14.5 ug/mL
[2023-01-04] MEDS ORDERED: Bisacodyl 5 MG TAB PO SCH (16:00)
[2023-01-04] MEDS: VANCOMYCIN 1.75 GM/500 ML BAG 1.75 GM in Premix Bag 1 BAG IVPB SCH (16:25)
[2023-01-04] MEDS: Acetaminophen 325 MG TAB PO PRN (18:35)
[2023-01-04] MEDS: Atorvastatin Calcium 40 MG TAB PO SCH (20:54)
[2023-01-05] MEDS: Lactated Ringer's 1,000 ML IV SCH ×2 (01:19→11:56)
[2023-01-05] MEDS: METHadone HCl 10 MG TAB PO SCH ×6 (01:19→19:58)
[2023-01-05] MEDS: oxyCODONE/Acetaminophen 5 mg/325 mg Tablet PO PRN ×4 (01:20→19:58)
[2023-01-05 07:30] LABS: Anion Gap 15 mmol/L (10-20); BUN (Urea Nitrogen) 17 mg/dL (8.4-25.7); Calc. Creatinine Clearance 88 mL/min (70-130); Calcium 8.7 mg/dL (7.8-10.44); Carbon Dioxide 24 mmol/L (23-31); Chloride 105 mmol/L (98-107); Estimated GFR 67; Glucose 95 mg/dL (80-115); Potassium 4.4 mmol/L (3.5-5.1); Sodium 140 mmol/L (136-145)
[2023-01-05 07:35] LABS: #Eosinphils 0.7 thou/uL (0.0-0.7); #Lymphocytes 1.3 thou/uL (1.20-3.40); #Monocytes 0.5 thou/uL (0.11-0.59); #Neutrophils 3.6 thou/uL (1.40-6.50); %Basophils 0.4 % (0.0-1.0); %Eosinophils 11.5 % (0.0-10.0); %Lymphocytes 20.9 % (21.0-51.0); %Monocytes 8.1 % (0.0-10.0); %Neutrophils 59.1 % (42.0-75.0); Hemoglobin 10.2 g/dL (14.0-18.0); Mean Corpuscular HGB CONC 32.4 g/dL (32.0-36.0); Mean Corpuscular Hemoglobin 27.2 pg (27.0-31.0); Mean Platelet Volume 7.4 fL (7.4-10.4); Platelet Count 240 10x3/uL (130-400); RBC Distribution Width 14.1 % (11.5-14.5); Red Blood Cell (RBC) Count 3.74 mill/uL (4.70-6.10); White Blood Cell (WBC) Count 6.2 10x3/uL (4.8-10.8)
[2023-01-05] MEDS: Fenofibrate Nanocrystallized 145 MG TAB PO SCH (08:49)
[2023-01-05] MEDS: Empagliflozin 25 MG TAB PO SCH (08:49)
[2023-01-05] MEDS: Gabapentin 300 MG CAP PO SCH ×3 (08:49→19:39)
[2023-01-05] MEDS: Cefepime 2 GM in Sodium Chloride 0.9% 100 ML IVPB SCH ×2 (08:49→22:39)
[2023-01-05] MEDS: Polyethylene Glycol 3350 17 GM Packet PO SCH (08:50)
[2023-01-05] MEDS: Aspirin Chewable 81 MG TAB PO SCH (08:50)
[2023-01-05] MEDS: Apixaban 5 MG TAB PO SCH ×2 (08:50→22:38)
[2023-01-05] MEDS: Nystatin Powder 15 GM BOT TOP SCH ×2 (08:51→22:39)
[2023-01-05] MEDS: VANCOMYCIN 1.75 GM/500 ML BAG 1.75 GM in Premix Bag 1 BAG IVPB SCH (17:50)
[2023-01-05] MEDS ORDERED: Ketorolac Tromethamine 30 MG/ML VIAL IVP SCH (20:15)
[2023-01-05] MEDS: Atorvastatin Calcium 40 MG TAB PO SCH (22:38)
[2023-01-05] MEDS: Terbinafine 1% 30 GM TUBE TOP SCH (22:39)
[2023-01-05] MEDS: Insulin Glargine 30 UNITS/0.3 ML VIAL SC SCH (22:40)
[2023-01-06] MEDS: oxyCODONE/Acetaminophen 5 mg/325 mg Tablet PO PRN ×4 (00:47→13:16)
[2023-01-06] MEDS: METHadone HCl 10 MG TAB PO SCH ×4 (00:48→13:18)
[2023-01-06] MEDS: Lactated Ringer's 1,000 ML IV SCH ×2 (00:53→13:17)
[2023-01-06 07:27] LABS: #Eosinphils 0.8 thou/uL (0.0-0.7); #Lymphocytes 1.4 thou/uL (1.20-3.40); #Monocytes 0.4 thou/uL (0.11-0.59); %Basophils 0.7 % (0.0-1.0); %Eosinophils 13.9 % (0.0-10.0); %Monocytes 7.3 % (0.0-10.0); %Neutrophils 54.1 % (42.0-75.0); Hemoglobin 9.5 g/dL (14.0-18.0); Mean Corpuscular Hemoglobin 27.3 pg (27.0-31.0); Mean Corpuscular Volume 82.9 fl (78.0-98.0); Mean Platelet Volume 7.1 fL (7.4-10.4); Platelet Count 236 10x3/uL (130-400); Red Blood Cell (RBC) Count 3.49 mill/uL (4.70-6.10); White Blood Cell (WBC) Count 5.6 10x3/uL (4.8-10.8)
[2023-01-06 08:20] VITALS: BP 115/67; TEMP 98.2
[2023-01-06 08:23] LABS: Anion Gap 11 mmol/L (10-20); BUN (Urea Nitrogen) 19 mg/dL (8.4-25.7); Calc. Creatinine Clearance 82 mL/min (70-130); Calcium 8.9 mg/dL (7.8-10.44); Carbon Dioxide 26 mmol/L (23-31); Chloride 104 mmol/L (98-107); Estimated GFR 62; Glucose 111 mg/dL (80-115); Potassium 4.3 mmol/L (3.5-5.1); Sodium 137 mmol/L (136-145)
[2023-01-06] MEDS: Gabapentin 300 MG CAP PO SCH (09:29)
[2023-01-06] MEDS: Aspirin Chewable 81 MG TAB PO SCH (09:29)
[2023-01-06] MEDS: Apixaban 5 MG TAB PO SCH (09:29)
[2023-01-06] MEDS: Empagliflozin 25 MG TAB PO SCH (09:29)
[2023-01-06] MEDS: Fenofibrate Nanocrystallized 145 MG TAB PO SCH (09:29)
[2023-01-06] MEDS: Cefepime 2 GM in Sodium Chloride 0.9% 100 ML IVPB SCH (09:30)
[2023-01-06] MEDS: Polyethylene Glycol 3350 17 GM Packet PO SCH (09:30)
[2023-01-06] MEDS: Nystatin Powder 15 GM BOT TOP SCH (09:30)
[2023-01-09] MEDS ORDERED: TIRZEPATIDE 5 MG/0.5 ML SC SCH (09:00)
[2023-01-09] MEDS ORDERED: Tirzepatide [Mounjaro] 5 MG/0.5 ML Pen.Injctr SC SCH (09:00)
== END 2023-01-06 14:32 | disposition home or self-care (01) | DRG 871 ==
LOC: ERS 21:37 → ERHOLD 01-02 01:16 → OBSVTOIN 01-02 07:59 → T4-A 01-02 14:55
PROVIDERS: ADMIT Student in an Organized Health Care Education/Training Program; ATTEND Internal Medicine
DX: A41.9 Sepsis, unspecified organism (principal); G93.41 Metabolic encephalopathy; L03.115 Cellulitis of right lower limb; F11.20 Opioid dependence, uncomplicated; L97.419 Non-pressure chronic ulcer of right heel and midfoot with unspecified severity; Z20.822 Contact with and (suspected) exposure to COVID-19; E11.40 Type 2 diabetes mellitus with diabetic neuropathy, unspecified; E11.51 Type 2 diabetes mellitus with diabetic peripheral angiopathy without gangrene; I10 Essential (primary) hypertension; G89.4 Chronic pain syndrome; C61 Malignant neoplasm of prostate; E11.621 Type 2 diabetes mellitus with foot ulcer; I48.91 Unspecified atrial fibrillation; Z88.2 Allergy status to sulfonamides; Z91.041 Radiographic dye allergy status; Z79.82 Long term (current) use of aspirin; Z79.4 Long term (current) use of insulin; Z79.84 Long term (current) use of oral hypoglycemic drugs; Z79.01 Long term (current) use of anticoagulants; Z79.899 Other long term (current) drug therapy
CPT/HCPCS: 36415; 36416; 70450; 71045; 80048; 80053; 80202; 81003; 83605; 83690; 84484; 85025; 85652; 86140; 87040; 87070; 87081; 87205; 93005; 96365; 96367; 97139; J0692; J1815; J1885; J3370; J3370-JW; J3490; J7120

== ENCOUNTER 2023-07-13 09:59 | Emergency (ER) | payer MEDICARE, BC ==
[2023-07-13 10:55] LABS: Actual Bicarbonate (HCO3v) 22.5 mEq/L (22-28); Calcium, Ionized (venous) 1.03 mmol/L (1.16-1.32); Chloride (VBG) 101 mmol/L (98-106); Hematocrit-VBG 33 % (42.0-52.0); Hemoglobin (Hb) 11.2 g/dL (13.1-17.2); Potassium (VBG) 4.87 mmol/L (3.70-5.30); Sodium 135 mmol/L (133-146); pH (venous) 7.497 (7.32-7.43)
[2023-07-13 11:17] LABS: #Eosinphils 0.2 thou/uL (0.0-0.7); #Monocytes 0.6 thou/uL (0.11-0.59); #Neutrophils 8.1 thou/uL (1.40-6.50); %Basophils 0.3 % (0.0-1.0); %Lymphocytes 9.3 % (21.0-51.0); %Monocytes 6.3 % (0.0-10.0); %Neutrophils 81.7 % (42.0-75.0); Hematocrit 30.6 % (42.0-52.0); Hemoglobin 9.6 g/dL (14.0-18.0); Mean Corpuscular HGB CONC 31.4 g/dL (32.0-36.0); Mean Corpuscular Hemoglobin 26.4 pg (27.0-31.0); Mean Corpuscular Volume 84.3 fl (78.0-98.0); Platelet Count 216 10x3/uL (130-400); Red Blood Cell (RBC) Count 3.63 mill/uL (4.70-6.10)
[2023-07-13 11:41] LABS: ALT (SGPT) 12 U/L (8-55); AST (SGOT) 14 U/L (5-34); Albumin 4.4 g/dL (3.4-4.8); Alkaline Phosphatase 35 U/L (40-110); Anion Gap 13 mmol/L (10-20); BUN (Urea Nitrogen) 22 mg/dL (8.4-25.7); Bilirubin, Total 0.5 mg/dL (0.2-1.2); Calc. Creatinine Clearance 0 mL/min (70-130); Calcium 9.2 mg/dL (7.8-10.44); Carbon Dioxide 26 mmol/L (23-31); Chloride 101 mmol/L (98-107); Estimated GFR 54; Globulin 2.5 g/dL (2.4-3.5); Glucose 212 mg/dL (80-115); Lipase 8 U/L (8-78); Potassium 4.9 mmol/L (3.5-5.1); Protein, Total 6.9 g/dL (5.8-8.1); Sodium 135 mmol/L (136-145)
[2023-07-13 11:45] LABS: Troponin I 0.015 ng/mL (< 0.028)
[2023-07-13 11:47] LABS: SARS-CoV-2 NAA Rapid Test Not Detected (NotDetected)
[2023-07-13 13:43] LABS: Bacteria/HPF 3+ HPF (None Seen); Bilirubin Negative (Negative); Blood, Urine Negative (Negative); CAUTI Indications for Culture Alt mental st,lethar; Clarity Turbid (Clear); Glucose, Urine (Dipstick) 100 mg/dL (Negative); Ketone, Urine Negative (Negative); Leukocyte 75 Leu/uL (Negative); Nitrite Negative (Negative); Protein, Urine (Dipstick) 10 mg/dL (Neg-Trace); RBC/HPF 0-3 HPF (0-3); Specific Gravity, Urine 1.017 (1.002-1.036); Squamous Epithelial None Seen HPF (0-3); Urobilinogen Normal mg/dL (Less than 2); WBC/HPF 21-50 HPF (0-3)
[2023-07-13 13:46] LABS: Urine Culture Reflex Yes Yes
[2023-07-13] MEDS ORDERED: cefTRIAXone (ROCEPHIN) 1 GM VIAL ONE (14:14)
== END 2023-07-13 14:30 | disposition home or self-care (01) ==
LOC: ERS 09:59
DX: N39.0 Urinary tract infection, site not specified (principal); R50.9 Fever, unspecified; E11.9 Type 2 diabetes mellitus without complications; Z79.84 Long term (current) use of oral hypoglycemic drugs; Z79.4 Long term (current) use of insulin; Z79.01 Long term (current) use of anticoagulants
CPT/HCPCS: 0240U; 71045; 80053; 81001; 82010; 82805; 82962; 83605; 83690; 84484; 85025; 87040; 87077; 87086; 87149 ×2; 87186; 93005; 36415; 36416; 51701; 96374; J0696

== ENCOUNTER 2023-07-24 19:16 | Inpatient (IN) | payer MEDICARE, BC ==
[2023-07-24 19:55] LABS: #Eosinphils 0.2 thou/uL (0.0-0.7); #Monocytes 0.7 thou/uL (0.11-0.59); #Neutrophils 9.7 thou/uL (1.40-6.50); %Basophils 0.2 % (0.0-1.0); %Eosinophils 1.3 % (0.0-10.0); %Lymphocytes 10.5 % (21.0-51.0); %Monocytes 5.9 % (0.0-10.0); %Neutrophils 81.1 % (42.0-75.0); Hematocrit 31.4 % (42.0-52.0); Hemoglobin 9.8 g/dL (14.0-18.0); Mean Corpuscular HGB CONC 31.2 g/dL (32.0-36.0); Mean Corpuscular Hemoglobin 26.1 pg (27.0-31.0); Mean Corpuscular Volume 83.7 fl (78.0-98.0); Mean Platelet Volume 9.2 fL (7.4-10.4); Platelet Count 261 10x3/uL (130-400); RBC Distribution Width 14.6 % (11.5-14.5); Red Blood Cell (RBC) Count 3.75 mill/uL (4.70-6.10)
[2023-07-24] MEDS ORDERED: Acetaminophen 500 MG TAB ONE (19:58)
[2023-07-24] MEDS ORDERED: Piperacillin/Tazobactam 4.5 GM VIAL ONE (19:58)
[2023-07-24 20:28] LABS: ALT (SGPT) 9 U/L (8-55); AST (SGOT) 11 U/L (5-34); Albumin 4.5 g/dL (3.4-4.8); Alkaline Phosphatase 37 U/L (40-110); Anion Gap 15 mmol/L (10-20); BUN (Urea Nitrogen) 22 mg/dL (8.4-25.7); Bilirubin, Total 0.7 mg/dL (0.2-1.2); Calc. Creatinine Clearance 0 mL/min (70-130); Carbon Dioxide 26 mmol/L (23-31); Chloride 99 mmol/L (98-107); Estimated GFR 45; Globulin 2.8 g/dL (2.4-3.5); Glucose 239 mg/dL (80-115); Potassium 4.6 mmol/L (3.5-5.1); Protein, Total 7.3 g/dL (5.8-8.1); Sodium 135 mmol/L (136-145)
[2023-07-24 20:32] LABS: Acetaminophen Less than 10 mcg/mL (10.0-30.0); Alcohol Less than 10.0 mg/dL (Less than 10); CRP (Inflammatory) 6.04 mg/dL (= or < 0.5); Salicylate Less than 8.0 mg/dL (15.0-30.0)
[2023-07-24] MEDS ORDERED: Vancomycin 1 GM/200 ML (FROZEN) BAG ONE (20:40)
[2023-07-24 21:02] LABS: Bilirubin Negative (Negative); Blood, Urine 2+ (Negative); Clarity Clear (Clear); Glucose, Urine (Dipstick) 500 mg/dL (Negative); Ketone, Urine Negative (Negative); Leukocyte 75 Leu/uL (Negative); Nitrite 1+ (Negative); Protein, Urine (Dipstick) Negative (Neg-Trace); Specific Gravity, Urine 1.016 (1.002-1.036); Urobilinogen Normal mg/dL (Less than 2)
[2023-07-24 21:06] LABS: Bacteria/HPF 4+ HPF (None Seen); CAUTI Indications for Culture Dysuria,urgency,freq; Squamous Epithelial 0-3 HPF (0-3)
[2023-07-24 21:07] LABS: Urine Culture Reflex No No
[2023-07-24 21:10] LABS: Amphetamine Not Detected (NotDetected); Barbiturates Screen Not Detected (NotDetected); Benzodiazepine Screen Not Detected (NotDetected); Cocaine Metabolite Screen Not Detected (NotDetected); Methadone Detected (NotDetected); Methamphetamine Not Detected (NotDetected); Opiate Screen Not Detected (NotDetected); Oxycodone Screen Detected (NotDetected); Phencyclidine (PCP) Not Detected (NotDetected); THC/Cannabinoid Screen Not Detected (NotDetected); Tricyclic Screen Not Detected (NotDetected)
[2023-07-24 21:38] LABS: SARS-CoV-2 NAA Rapid Test Not Detected (NotDetected)
[2023-07-24] MEDS ORDERED: Senokot S 8.6-50 MG TAB PO PRN (21:48)
[2023-07-24] MEDS ORDERED: Dextrose 50% Abboject 50 ML SYRINGE SLOW IVP PRN (21:51)
[2023-07-24] MEDS ORDERED: Glucagon 1 MG/ML KIT IM PRN (21:51)
[2023-07-24] MEDS ORDERED: Dextrose 5% in Water 1,000 ML IV PRN (21:51)
[2023-07-24] MEDS ORDERED: HumaLOG 300 UNITS/3 ML VIAL SC PRN ×2 (21:51)
[2023-07-24] MEDS ORDERED: Meropenem 1 GM in Sodium Chloride 0.9% 100 ML IVPB SCH ×2 (22:15→22:45)
[2023-07-24] MEDS ORDERED: Sodium Chloride 0.9% 1,000 ML IV SCH ×2 (22:30→22:40)
[2023-07-24 23:05] VITALS: BMI 39.6
[2023-07-24] MEDS ORDERED: Vancomycin (BATCH) 1.5 GM in Premix 1 BAG IVPB SCH (23:30)
[2023-07-25 04:56] LABS: #Eosinphils 0.2 thou/uL (0.0-0.7); #Monocytes 0.7 thou/uL (0.11-0.59); #Neutrophils 9.4 thou/uL (1.40-6.50); %Basophils 0.3 % (0.0-1.0); %Eosinophils 1.3 % (0.0-10.0); %Lymphocytes 12.7 % (21.0-51.0); %Monocytes 5.5 % (0.0-10.0); %Neutrophils 79.2 % (42.0-75.0); Hematocrit 30.3 % (42.0-52.0); Hemoglobin 9.3 g/dL (14.0-18.0); Mean Corpuscular HGB CONC 30.7 g/dL (32.0-36.0); Mean Corpuscular Hemoglobin 25.8 pg (27.0-31.0); Mean Corpuscular Volume 84.2 fl (78.0-98.0); Mean Platelet Volume 9.6 fL (7.4-10.4); Platelet Count 244 10x3/uL (130-400); RBC Distribution Width 14.5 % (11.5-14.5); White Blood Cell (WBC) Count 11.9 10x3/uL (4.8-10.8)
[2023-07-25] MEDS: Meropenem 1 GM in Sodium Chloride 0.9% 100 ML IVPB SCH ×3 (05:14→21:23)
[2023-07-25 05:38] LABS: ALT (SGPT) 8 U/L (8-55); AST (SGOT) 12 U/L (5-34); Albumin 4.3 g/dL (3.4-4.8); Alkaline Phosphatase 32 U/L (40-110); Anion Gap 14 mmol/L (10-20); BUN (Urea Nitrogen) 23 mg/dL (8.4-25.7); Bilirubin, Total 0.7 mg/dL (0.2-1.2); Calc. Creatinine Clearance 94 mL/min (70-130); Carbon Dioxide 26 mmol/L (23-31); Chloride 100 mmol/L (98-107); Estimated GFR 51; Globulin 2.7 g/dL (2.4-3.5); Glucose 138 mg/dL (80-115); Potassium 4.4 mmol/L (3.5-5.1); Sodium 136 mmol/L (136-145)
[2023-07-25] MEDS ORDERED: Famotidine 20 MG TAB PO SCH (09:00)
[2023-07-25] MEDS: Fenofibrate Nanocrystallized 145 MG TAB PO SCH (10:41)
[2023-07-25] MEDS: METHadone HCl 10 MG TAB PO PRN ×2 (10:42→18:10)
[2023-07-25] MEDS: oxyCODONE/Acetaminophen 5 mg/325 mg Tablet PO PRN ×2 (10:52→18:11)
[2023-07-25] MEDS ORDERED: Acetaminophen 500 MG TAB PO PRN (19:29)
[2023-07-25] MEDS ORDERED: Vancomycin (BATCH) 1.75 GM in Premix 1 BAG IVPB SCH (20:00)
[2023-07-25] MEDS: Atorvastatin Calcium 40 MG TAB PO SCH (21:23)
[2023-07-25] MEDS: Nystatin Powder 15 GM BOT TOP SCH (21:24)
[2023-07-25] MEDS: Insulin Glargine 30 UNITS/0.3 ML VIAL SC SCH (21:24)
[2023-07-26] MEDS: METHadone HCl 10 MG TAB PO PRN ×2 (00:03→06:21)
[2023-07-26] MEDS: oxyCODONE/Acetaminophen 5 mg/325 mg Tablet PO PRN ×2 (00:03→06:22)
[2023-07-26 05:05] LABS: #Eosinphils 0.3 thou/uL (0.0-0.7); #Monocytes 0.5 thou/uL (0.11-0.59); #Neutrophils 4.5 thou/uL (1.40-6.50); %Basophils 0.6 % (0.0-1.0); %Lymphocytes 20.1 % (21.0-51.0); %Monocytes 7.5 % (0.0-10.0); %Neutrophils 67.2 % (42.0-75.0); Hematocrit 27.2 % (42.0-52.0); Hemoglobin 8.4 g/dL (14.0-18.0); Mean Corpuscular HGB CONC 30.9 g/dL (32.0-36.0); Mean Corpuscular Hemoglobin 25.9 pg (27.0-31.0); Mean Platelet Volume 10.2 fL (7.4-10.4); Platelet Count 215 10x3/uL (130-400); RBC Distribution Width 14.4 % (11.5-14.5); Red Blood Cell (RBC) Count 3.24 mill/uL (4.70-6.10); White Blood Cell (WBC) Count 6.7 10x3/uL (4.8-10.8)
[2023-07-26 05:27] LABS: Anion Gap 14 mmol/L (10-20); BUN (Urea Nitrogen) 22 mg/dL (8.4-25.7); Calc. Creatinine Clearance 102 mL/min (70-130); Calcium 8.8 mg/dL (7.8-10.44); Carbon Dioxide 23 mmol/L (23-31); Chloride 104 mmol/L (98-107); Estimated GFR 57; Glucose 79 mg/dL (80-115); Iron 18 ug/dL (65-175); Iron Binding Capacity, Total 265 mcg/dL (261-462); Potassium 4.1 mmol/L (3.5-5.1); Sodium 137 mmol/L (136-145)
[2023-07-26] MEDS: Meropenem 1 GM in Sodium Chloride 0.9% 100 ML IVPB SCH ×3 (05:52→21:12)
[2023-07-26] MEDS: Empagliflozin 25 MG TAB PO SCH (10:34)
[2023-07-26] MEDS: Fenofibrate Nanocrystallized 145 MG TAB PO SCH (10:34)
[2023-07-26] MEDS: Citalopram 20 MG TAB PO SCH (10:34)
[2023-07-26] MEDS: Nystatin Powder 15 GM BOT TOP SCH ×2 (10:40→21:17)
[2023-07-26] MEDS: Insulin Glargine 30 UNITS/0.3 ML VIAL SC SCH (11:02)
[2023-07-26] MEDS ORDERED: Gabapentin 300 MG CAP PO SCH (11:15)
[2023-07-26] MEDS ORDERED: Epoetin (ESRD) 10,000 UNITS/ML VIAL SC SCH (12:00)
[2023-07-26] MEDS: METHadone HCl 10 MG TAB PO SCH ×3 (12:40→21:13)
[2023-07-26] MEDS: oxyCODONE/Acetaminophen 5 mg/325 mg Tablet PO SCH ×3 (12:41→21:14)
[2023-07-26] MEDS ORDERED: Non-Formulary Item 1 EACH (Gabapentin [Gabapentin] 600 MG Tablet) PO SCH (15:00)
[2023-07-26] MEDS: Gabapentin 300 MG CAP PO SCH ×2 (15:45→21:15)
[2023-07-26] MEDS: Ferrous Sulfate 325 MG TAB PO SCH (17:16)
[2023-07-26] MEDS: Apixaban 5 MG TAB PO SCH (21:13)
[2023-07-26] MEDS: Atorvastatin Calcium 40 MG TAB PO SCH (21:14)
[2023-07-27] MEDS: METHadone HCl 10 MG TAB PO SCH ×6 (00:50→21:28)
[2023-07-27] MEDS: oxyCODONE/Acetaminophen 5 mg/325 mg Tablet PO SCH ×6 (01:01→21:28)
[2023-07-27] MEDS: Meropenem 1 GM in Sodium Chloride 0.9% 100 ML IVPB SCH ×3 (05:19→21:29)
[2023-07-27 06:28] LABS: #Eosinphils 0.3 thou/uL (0.0-0.7); #Monocytes 0.4 thou/uL (0.11-0.59); #Neutrophils 2.9 thou/uL (1.40-6.50); %Basophils 0.6 % (0.0-1.0); %Eosinophils 5.8 % (0.0-10.0); %Lymphocytes 30.2 % (21.0-51.0); %Monocytes 8.1 % (0.0-10.0); %Neutrophils 54.9 % (42.0-75.0); Hematocrit 28.1 % (42.0-52.0); Hemoglobin 8.6 g/dL (14.0-18.0); Mean Corpuscular HGB CONC 30.6 g/dL (32.0-36.0); Mean Corpuscular Hemoglobin 25.3 pg (27.0-31.0); Mean Corpuscular Volume 82.6 fl (78.0-98.0); Mean Platelet Volume 9.6 fL (7.4-10.4); Platelet Count 259 10x3/uL (130-400); RBC Distribution Width 14.3 % (11.5-14.5); White Blood Cell (WBC) Count 5.3 10x3/uL (4.8-10.8)
[2023-07-27 07:19] LABS: Albumin 3.9 g/dL (3.4-4.8); Anion Gap 12 mmol/L (10-20); BUN (Urea Nitrogen) 23 mg/dL (8.4-25.7); BUN/Creatinine Ratio 14.74; Calc. Creatinine Clearance 92 mL/min (70-130); Calcium 9.1 mg/dL (7.8-10.44); Carbon Dioxide 26 mmol/L (23-31); Chloride 103 mmol/L (98-107); Estimated GFR 50; Glucose 113 mg/dL (80-115); Magnesium 2.3 mg/dL (1.6-2.6); Phosphorus 4.3 mg/dL (2.3-4.7); Potassium 4.2 mmol/L (3.5-5.1); Sodium 137 mmol/L (136-145)
[2023-07-27] MEDS: Citalopram 20 MG TAB PO SCH (08:49)
[2023-07-27] MEDS: Empagliflozin 25 MG TAB PO SCH (08:49)
[2023-07-27] MEDS: Ferrous Sulfate 325 MG TAB PO SCH ×2 (08:49→17:53)
[2023-07-27] MEDS: Fenofibrate Nanocrystallized 145 MG TAB PO SCH (08:49)
[2023-07-27] MEDS: Aspirin Chewable 81 MG TAB PO SCH (08:49)
[2023-07-27] MEDS: Apixaban 5 MG TAB PO SCH ×2 (08:49→21:28)
[2023-07-27] MEDS: Gabapentin 300 MG CAP PO SCH ×3 (08:51→21:27)
[2023-07-27] MEDS: Nystatin Powder 15 GM BOT TOP SCH (08:52)
[2023-07-27] MEDS: Atorvastatin Calcium 40 MG TAB PO SCH (21:28)
[2023-07-28] MEDS: Nystatin Powder 15 GM BOT TOP SCH ×2 (00:46→09:03)
[2023-07-28] MEDS: oxyCODONE/Acetaminophen 5 mg/325 mg Tablet PO SCH ×5 (01:11→17:56)
[2023-07-28] MEDS: METHadone HCl 10 MG TAB PO SCH ×5 (01:12→17:56)
[2023-07-28] MEDS: Meropenem 1 GM in Sodium Chloride 0.9% 100 ML IVPB SCH ×2 (05:47→14:35)
[2023-07-28 07:06] LABS: Anion Gap 12 mmol/L (10-20); BUN (Urea Nitrogen) 25 mg/dL (8.4-25.7); BUN/Creatinine Ratio 14.04; Calc. Creatinine Clearance 81 mL/min (70-130); Calcium 8.8 mg/dL (7.8-10.44); Carbon Dioxide 29 mmol/L (23-31); Chloride 102 mmol/L (98-107); Estimated GFR 43; Glucose 106 mg/dL (80-115); Phosphorus 5.1 mg/dL (2.3-4.7); Potassium 4.5 mmol/L (3.5-5.1); Sodium 138 mmol/L (136-145)
[2023-07-28] MEDS: Aspirin Chewable 81 MG TAB PO SCH (09:02)
[2023-07-28] MEDS: Fenofibrate Nanocrystallized 145 MG TAB PO SCH (09:03)
[2023-07-28] MEDS: Ferrous Sulfate 325 MG TAB PO SCH ×2 (09:03→17:56)
[2023-07-28] MEDS: Gabapentin 300 MG CAP PO SCH ×2 (09:03→14:34)
[2023-07-28] MEDS: Citalopram 20 MG TAB PO SCH (09:03)
[2023-07-28] MEDS: Apixaban 5 MG TAB PO SCH (09:03)
[2023-07-28 18:55] VITALS: BP 110/73; TEMP 98.2
[2023-08-01] MEDS ORDERED: Tirzepatide [Mounjaro] 5 MG/0.5 ML Pen.Injctr SC SCH (09:00)
== END 2023-07-28 18:57 | DRG 872 ==
LOC: ERS 19:16 → OBSVTOIN 21:52 → T4-B 21:52 → 2NO 07-25 01:08 → T4-A 07-27 15:54
PROVIDERS: ADMIT Internal Medicine; ATTEND Family Medicine
PROC: 3E03329 Introduction of Other Anti-infective into Peripheral Vein, Percutaneous Approach (ICD-10-PCS; 2023-07-24)
PROC: 02HV33Z Insertion of Infusion Device into Superior Vena Cava, Percutaneous Approach (ICD-10-PCS; principal; 2023-07-27)
PROC: B548ZZA Ultrasonography of Superior Vena Cava, Guidance (ICD-10-PCS; 2023-07-27)
PROC: B5181ZA Fluoroscopy of Superior Vena Cava using Low Osmolar Contrast, Guidance (ICD-10-PCS; 2023-07-27)
DX: A41.89 Other specified sepsis (principal); L03.115 Cellulitis of right lower limb; N39.0 Urinary tract infection, site not specified; N17.9 Acute kidney failure, unspecified; C61 Malignant neoplasm of prostate; I48.91 Unspecified atrial fibrillation; E11.40 Type 2 diabetes mellitus with diabetic neuropathy, unspecified; E78.5 Hyperlipidemia, unspecified; L97.519 Non-pressure chronic ulcer of other part of right foot with unspecified severity; E11.621 Type 2 diabetes mellitus with foot ulcer; L89.629 Pressure ulcer of left heel, unspecified stage; L89.619 Pressure ulcer of right heel, unspecified stage; E66.01 Morbid (severe) obesity due to excess calories; F32.A Depression, unspecified; Z68.39 Body mass index [BMI] 39.0-39.9, adult; D17.5 Benign lipomatous neoplasm of intra-abdominal organs; K21.9 Gastro-esophageal reflux disease without esophagitis; N18.30 Chronic kidney disease, stage 3 unspecified; E11.22 Type 2 diabetes mellitus with diabetic chronic kidney disease; I12.9 Hypertensive chronic kidney disease with stage 1 through stage 4 chronic kidney disease, or unspecified chronic kidney disease; B96.1 Klebsiella pneumoniae [K. pneumoniae] as the cause of diseases classified elsewhere; Z74.01 Bed confinement status; Z79.899 Other long term (current) drug therapy; Z86.73 Personal history of transient ischemic attack (TIA), and cerebral infarction without residual deficits; Z88.2 Allergy status to sulfonamides; Z79.82 Long term (current) use of aspirin; Z91.041 Radiographic dye allergy status; Z88.8 Allergy status to other drugs, medicaments and biological substances; Z79.4 Long term (current) use of insulin; Z11.52 Encounter for screening for COVID-19
CPT/HCPCS: 36415; 36416; 36569; 70450; 71045; 74176; 80048; 80053; 80069; 80306; 80307; 81001; 82728; 83540; 83550; 83605; 83735; 83880; 84145; 85025; 86140; 87040; 87070; 87077; 87086; 87149; 87186; 87205; 93005; 93923; 96365; 96367; 97139; C1751; J1815; J2185; J2543; J3370; J3370-JW; J3490; J7050; Q4081

== ENCOUNTER 2023-08-19 18:26 | Inpatient (IN) | payer MEDICARE, BC ==
[2023-08-19 19:16] LABS: #Eosinphils 0.4 thou/uL (0.0-0.7); #Monocytes 0.4 thou/uL (0.11-0.59); #Neutrophils 2.4 thou/uL (1.40-6.50); %Basophils 0.6 % (0.0-1.0); %Eosinophils 8.8 % (0.0-10.0); %Lymphocytes 31.9 % (21.0-51.0); %Monocytes 7.6 % (0.0-10.0); %Neutrophils 49.9 % (42.0-75.0); Hemoglobin 8.7 g/dL (14.0-18.0); Mean Corpuscular HGB CONC 31.1 g/dL (32.0-36.0); Mean Corpuscular Hemoglobin 25.8 pg (27.0-31.0); Mean Corpuscular Volume 83.1 fl (78.0-98.0); Mean Platelet Volume 9.7 fL (7.4-10.4); Platelet Count 254 10x3/uL (130-400); RBC Distribution Width 14.8 % (11.5-14.5); Red Blood Cell (RBC) Count 3.37 mill/uL (4.70-6.10); White Blood Cell (WBC) Count 4.9 10x3/uL (4.8-10.8)
[2023-08-19 19:41] LABS: ALT (SGPT) 11 U/L (8-55); AST (SGOT) 20 U/L (5-34); Albumin 3.7 g/dL (3.4-4.8); Alkaline Phosphatase 41 U/L (40-110); Anion Gap 16 mmol/L (10-20); BUN (Urea Nitrogen) 23 mg/dL (8.4-25.7); Bilirubin, Total 0.4 mg/dL (0.2-1.2); Calc. Creatinine Clearance 0 mL/min (70-130); Calcium 8.7 mg/dL (7.8-10.44); Carbon Dioxide 21 mmol/L (23-31); Chloride 104 mmol/L (98-107); Estimated GFR 49; Globulin 3.2 g/dL (2.4-3.5); Glucose 173 mg/dL (80-115); Potassium 4.8 mmol/L (3.5-5.1); Protein, Total 6.9 g/dL (5.8-8.1); Sodium 136 mmol/L (136-145)
[2023-08-19] MEDS ORDERED: Meropenem 1 GM in Sodium Chloride 0.9% 100 ML IVPB SCH (21:15)
[2023-08-19] MEDS ORDERED: Ondansetron ODT 4 MG TAB SL PRN (21:30)
[2023-08-19] MEDS ORDERED: Acetaminophen 325 MG TAB PO PRN (21:30)
[2023-08-19] MEDS ORDERED: Ondansetron PF 4 MG/2 ML Vial IVP PRN (21:30)
[2023-08-19] MEDS ORDERED: HumaLOG 300 UNITS/3 ML VIAL SC PRN (21:59)
[2023-08-19] MEDS ORDERED: Dextrose 50% Abboject 50 ML SYRINGE SLOW IVP PRN (21:59)
[2023-08-19] MEDS ORDERED: Dextrose 5% in Water 1,000 ML IV PRN (21:59)
[2023-08-19] MEDS ORDERED: Glucagon 1 MG/ML KIT IM PRN (21:59)
[2023-08-19] MEDS ORDERED: Senokot S 8.6-50 MG TAB PO PRN (21:59)
[2023-08-19] MEDS ORDERED: METHadone HCl 10 MG TAB PO SCH (22:30)
[2023-08-19] MEDS ORDERED: oxyCODONE/Acetaminophen 5 mg/325 mg Tablet PO SCH (22:30)
[2023-08-19] MEDS ORDERED: Atorvastatin Calcium 40 MG TAB PO SCH (22:45)
[2023-08-19] MEDS ORDERED: Insulin Glargine 30 UNITS/0.3 ML VIAL SC SCH (22:45)
[2023-08-19] MEDS ORDERED: Apixaban 5 MG TAB PO SCH (22:45)
[2023-08-19] MEDS ORDERED: Gabapentin 300 MG CAP PO SCH (22:45)
[2023-08-20 00:49] VITALS: BMI 39.3
[2023-08-20] MEDS: Meropenem 1 GM in Sodium Chloride 0.9% 100 ML IVPB SCH ×2 (05:28→13:45)
[2023-08-20 06:15] LABS: #Eosinphils 0.5 thou/uL (0.0-0.7); #Monocytes 0.4 thou/uL (0.11-0.59); #Neutrophils 2.3 thou/uL (1.40-6.50); %Basophils 0.6 % (0.0-1.0); %Eosinophils 9.5 % (0.0-10.0); %Lymphocytes 35.4 % (21.0-51.0); %Monocytes 8.1 % (0.0-10.0); %Neutrophils 45.6 % (42.0-75.0); Hematocrit 27.9 % (42.0-52.0); Hemoglobin 8.6 g/dL (14.0-18.0); Mean Corpuscular HGB CONC 30.8 g/dL (32.0-36.0); Mean Corpuscular Hemoglobin 25.5 pg (27.0-31.0); Mean Corpuscular Volume 82.8 fl (78.0-98.0); Mean Platelet Volume 9.8 fL (7.4-10.4); Platelet Count 267 10x3/uL (130-400); Red Blood Cell (RBC) Count 3.37 mill/uL (4.70-6.10); White Blood Cell (WBC) Count 5.1 10x3/uL (4.8-10.8)
[2023-08-20 06:24] LABS: Anion Gap 13 mmol/L (10-20); BUN (Urea Nitrogen) 20 mg/dL (8.4-25.7); Calc. Creatinine Clearance 100 mL/min (70-130); Calcium 8.8 mg/dL (7.8-10.44); Carbon Dioxide 26 mmol/L (23-31); Chloride 105 mmol/L (98-107); Estimated GFR 56; Glucose 85 mg/dL (80-115); Potassium 4.1 mmol/L (3.5-5.1); Sodium 140 mmol/L (136-145)
[2023-08-20] MEDS: Apixaban 5 MG TAB PO SCH ×2 (09:08→20:49)
[2023-08-20] MEDS: Aspirin 81 mg Enteric Coated Tablet PO SCH (09:08)
[2023-08-20] MEDS: Citalopram 20 MG TAB PO SCH (09:09)
[2023-08-20] MEDS: Fenofibrate Nanocrystallized 145 MG TAB PO SCH (09:09)
[2023-08-20] MEDS: METHadone HCl 10 MG TAB PO SCH ×4 (09:12→20:50)
[2023-08-20] MEDS: oxyCODONE/Acetaminophen 5 mg/325 mg Tablet PO SCH ×4 (09:13→20:51)
[2023-08-20] MEDS: Gabapentin 300 MG CAP PO SCH ×3 (09:14→20:49)
[2023-08-20 11:57] LABS: Bacteria/HPF None Seen HPF (None Seen); Bilirubin Negative (Negative); Blood, Urine Negative (Negative); Clarity Clear (Clear); Glucose, Urine (Dipstick) Normal (Negative); Ketone, Urine Negative (Negative); Leukocyte Negative Leu/uL (Negative); Nitrite Negative (Negative); Protein, Urine (Dipstick) Negative (Neg-Trace); RBC/HPF 0-3 HPF (0-3); Specific Gravity, Urine 1.011 (1.002-1.036); Squamous Epithelial 0-3 HPF (0-3); Urobilinogen Normal mg/dL (Less than 2); WBC/HPF 0-3 HPF (0-3); pH, Urine 6.5 (5.0-9.0)
[2023-08-20] MEDS: HumaLOG 300 UNITS/3 ML VIAL SC PRN (18:35)
[2023-08-20] MEDS ORDERED: Meropenem 2 GM in Sodium Chloride 0.9% 100 ML IVPB SCH (18:55)
[2023-08-20] MEDS: Atorvastatin Calcium 40 MG TAB PO SCH (20:49)
[2023-08-20] MEDS: Insulin Glargine 30 UNITS/0.3 ML VIAL SC SCH (20:55)
[2023-08-20] MEDS: Meropenem 2 GM, Admixture Fee 1 EACH in Sodium Chloride 0.9% 100 ML IVPB SCH (21:54)
[2023-08-21] MEDS: Meropenem 2 GM, Admixture Fee 1 EACH in Sodium Chloride 0.9% 100 ML IVPB SCH ×3 (05:34→23:22)
[2023-08-21] MEDS: Gabapentin 300 MG CAP PO SCH ×3 (08:48→20:28)
[2023-08-21] MEDS: Fenofibrate Nanocrystallized 145 MG TAB PO SCH (08:49)
[2023-08-21] MEDS: Aspirin 81 mg Enteric Coated Tablet PO SCH (08:49)
[2023-08-21] MEDS: Citalopram 20 MG TAB PO SCH (08:49)
[2023-08-21] MEDS: Apixaban 5 MG TAB PO SCH ×2 (08:49→20:28)
[2023-08-21] MEDS: METHadone HCl 10 MG TAB PO SCH ×4 (08:52→23:24)
[2023-08-21] MEDS: oxyCODONE/Acetaminophen 5 mg/325 mg Tablet PO SCH ×4 (08:52→23:22)
[2023-08-21] MEDS: Atorvastatin Calcium 40 MG TAB PO SCH (20:29)
[2023-08-21] MEDS: Insulin Glargine 30 UNITS/0.3 ML VIAL SC SCH (21:41)
[2023-08-22] MEDS: Meropenem 2 GM, Admixture Fee 1 EACH in Sodium Chloride 0.9% 100 ML IVPB SCH ×3 (07:22→21:07)
[2023-08-22 07:28] LABS: #Basophils 0.1 thou/uL (0.0-0.2); #Eosinphils 0.5 thou/uL (0.0-0.7); #Monocytes 0.4 thou/uL (0.11-0.59); %Basophils 1.3 % (0.0-1.0); %Eosinophils 10.6 % (0.0-10.0); %Lymphocytes 34.6 % (21.0-51.0); %Monocytes 8.2 % (0.0-10.0); %Neutrophils 43.1 % (42.0-75.0); Hematocrit 30.6 % (42.0-52.0); Hemoglobin 9.3 g/dL (14.0-18.0); Mean Corpuscular HGB CONC 30.4 g/dL (32.0-36.0); Mean Corpuscular Hemoglobin 25.2 pg (27.0-31.0); Mean Corpuscular Volume 82.9 fl (78.0-98.0); Mean Platelet Volume 9.6 fL (7.4-10.4); Platelet Count 236 10x3/uL (130-400); RBC Distribution Width 14.9 % (11.5-14.5); Red Blood Cell (RBC) Count 3.69 mill/uL (4.70-6.10); White Blood Cell (WBC) Count 4.6 10x3/uL (4.8-10.8)
[2023-08-22 07:36] LABS: Hemoglobin A1c 7.3 % (4.0-6.0)
[2023-08-22 07:51] LABS: Anion Gap 11 mmol/L (10-20); BUN (Urea Nitrogen) 17 mg/dL (8.4-25.7); Calc. Creatinine Clearance 108 mL/min (70-130); Calcium 8.6 mg/dL (7.8-10.44); Carbon Dioxide 27 mmol/L (23-31); Chloride 105 mmol/L (98-107); Estimated GFR 61; Glucose 108 mg/dL (80-115); Potassium 4.4 mmol/L (3.5-5.1); Sodium 139 mmol/L (136-145)
[2023-08-22] MEDS: METHadone HCl 10 MG TAB PO SCH ×4 (09:18→20:59)
[2023-08-22] MEDS: Fenofibrate Nanocrystallized 145 MG TAB PO SCH (09:22)
[2023-08-22] MEDS: Aspirin 81 mg Enteric Coated Tablet PO SCH (09:22)
[2023-08-22] MEDS: Gabapentin 300 MG CAP PO SCH ×3 (09:22→20:59)
[2023-08-22] MEDS: Citalopram 20 MG TAB PO SCH (09:22)
[2023-08-22] MEDS: Apixaban 5 MG TAB PO SCH (09:23)
[2023-08-22] MEDS: oxyCODONE/Acetaminophen 5 mg/325 mg Tablet PO SCH ×4 (09:23→20:59)
[2023-08-22] MEDS: Atorvastatin Calcium 40 MG TAB PO SCH (20:58)
[2023-08-22] MEDS: Insulin Glargine 30 UNITS/0.3 ML VIAL SC SCH (21:00)
[2023-08-23] MEDS: Meropenem 2 GM, Admixture Fee 1 EACH in Sodium Chloride 0.9% 100 ML IVPB SCH ×3 (05:43→21:54)
[2023-08-23 07:26] LABS: #Basophils 0.1 thou/uL (0.0-0.2); #Eosinphils 0.6 thou/uL (0.0-0.7); #Monocytes 0.4 thou/uL (0.11-0.59); #Neutrophils 3.2 thou/uL (1.40-6.50); %Basophils 0.8 % (0.0-1.0); %Lymphocytes 29.9 % (21.0-51.0); %Monocytes 5.7 % (0.0-10.0); %Neutrophils 52.6 % (42.0-75.0); Hematocrit 29.5 % (42.0-52.0); Hemoglobin 9.1 g/dL (14.0-18.0); Mean Corpuscular HGB CONC 30.8 g/dL (32.0-36.0); Mean Corpuscular Volume 84.3 fl (78.0-98.0); Mean Platelet Volume 9.8 fL (7.4-10.4); Platelet Count 252 10x3/uL (130-400); RBC Distribution Width 15.3 % (11.5-14.5); White Blood Cell (WBC) Count 6.1 10x3/uL (4.8-10.8)
[2023-08-23 07:55] LABS: Anion Gap 11 mmol/L (10-20); BUN (Urea Nitrogen) 23 mg/dL (8.4-25.7); Calc. Creatinine Clearance 102 mL/min (70-130); Calcium 9.1 mg/dL (7.8-10.44); Carbon Dioxide 30 mmol/L (23-31); Chloride 102 mmol/L (98-107); Estimated GFR 57; Glucose 117 mg/dL (80-115); Potassium 4.8 mmol/L (3.5-5.1); Sodium 138 mmol/L (136-145)
[2023-08-23] MEDS: Citalopram 20 MG TAB PO SCH (08:27)
[2023-08-23] MEDS: Aspirin 81 mg Enteric Coated Tablet PO SCH (08:27)
[2023-08-23] MEDS: METHadone HCl 10 MG TAB PO SCH ×4 (08:27→20:37)
[2023-08-23] MEDS: Fenofibrate Nanocrystallized 145 MG TAB PO SCH (08:27)
[2023-08-23] MEDS: oxyCODONE/Acetaminophen 5 mg/325 mg Tablet PO SCH ×4 (08:28→20:37)
[2023-08-23] MEDS: Gabapentin 300 MG CAP PO SCH ×3 (08:28→20:36)
[2023-08-23] MEDS ORDERED: FLU VACC QS2023-24(6MOS UP)/PF 60 MCG/0.5 ML SYRINGE IM ONE (09:00)
[2023-08-23] MEDS: Atorvastatin Calcium 40 MG TAB PO SCH (20:36)
[2023-08-23] MEDS: Insulin Glargine 30 UNITS/0.3 ML VIAL SC SCH (21:53)
[2023-08-24 07:17] LABS: #Basophils 0.1 thou/uL (0.0-0.2); #Eosinphils 0.8 thou/uL (0.0-0.7); #Monocytes 0.5 thou/uL (0.11-0.59); #Neutrophils 5.2 thou/uL (1.40-6.50); %Basophils 0.8 % (0.0-1.0); %Eosinophils 7.8 % (0.0-10.0); %Lymphocytes 29.3 % (21.0-51.0); %Monocytes 5.3 % (0.0-10.0); %Neutrophils 54.1 % (42.0-75.0); Hematocrit 34.8 % (42.0-52.0); Hemoglobin 10.5 g/dL (14.0-18.0); Mean Corpuscular HGB CONC 30.2 g/dL (32.0-36.0); Mean Corpuscular Hemoglobin 25.5 pg (27.0-31.0); Mean Corpuscular Volume 84.5 fl (78.0-98.0); Mean Platelet Volume 9.5 fL (7.4-10.4); Platelet Count 333 10x3/uL (130-400); RBC Distribution Width 15.3 % (11.5-14.5); Red Blood Cell (RBC) Count 4.12 mill/uL (4.70-6.10); White Blood Cell (WBC) Count 9.6 10x3/uL (4.8-10.8)
[2023-08-24] MEDS: Meropenem 2 GM, Admixture Fee 1 EACH in Sodium Chloride 0.9% 100 ML IVPB SCH ×3 (07:29→21:17)
[2023-08-24 07:40] LABS: Anion Gap 15 mmol/L (10-20); BUN (Urea Nitrogen) 24 mg/dL (8.4-25.7); Calc. Creatinine Clearance 94 mL/min (70-130); Calcium 9.6 mg/dL (7.8-10.44); Carbon Dioxide 29 mmol/L (23-31); Chloride 103 mmol/L (98-107); Estimated GFR 51; Glucose 92 mg/dL (80-115); Potassium 4.8 mmol/L (3.5-5.1); Sodium 142 mmol/L (136-145)
[2023-08-24 08:11] LABS: Prothrombin Time 13.7 sec (12.0-14.7)
[2023-08-24 08:12] LABS: PTT 31.8 sec (22.9-36.1)
[2023-08-24] MEDS: oxyCODONE/Acetaminophen 5 mg/325 mg Tablet PO SCH ×4 (08:34→20:56)
[2023-08-24] MEDS: Gabapentin 300 MG CAP PO SCH ×3 (08:34→20:56)
[2023-08-24] MEDS: METHadone HCl 10 MG TAB PO SCH ×4 (08:34→20:57)
[2023-08-24] MEDS: Aspirin 81 mg Enteric Coated Tablet PO SCH (08:40)
[2023-08-24] MEDS ORDERED: Iopamidol 0 ML ONE (11:26)
[2023-08-24] MEDS ORDERED: Ondansetron PF 4 MG/2 ML Vial ONE ×2 (11:33→12:19)
[2023-08-24] MEDS ORDERED: Dexamethasone 4 mg/ml Vial ONE (11:33)
[2023-08-24] MEDS ORDERED: Lidocaine 1% PF 5 ML VIAL ONE ×2 (11:33→12:19)
[2023-08-24] MEDS ORDERED: fentaNYL PF 100 MCG/2 ML SYRINGE ONE (11:34)
[2023-08-24] MEDS ORDERED: PROPOFOL 20 ML ONE (11:34)
[2023-08-24] MEDS ORDERED: Metoclopramide HCl 10 MG/2 ML VIAL ONE (12:19)
[2023-08-24] MEDS ORDERED: PROPOFOL 200 MG/20 ML VIAL ONE (12:19)
[2023-08-24] MEDS ORDERED: Dexamethasone 20 MG/5 ML VIAL ONE (12:19)
[2023-08-24] MEDS: Citalopram 20 MG TAB PO SCH (13:35)
[2023-08-24] MEDS: Fenofibrate Nanocrystallized 145 MG TAB PO SCH (13:36)
[2023-08-24] MEDS: Atorvastatin Calcium 40 MG TAB PO SCH (20:56)
[2023-08-24] MEDS: Insulin Glargine 30 UNITS/0.3 ML VIAL SC SCH (21:06)
[2023-08-25] MEDS: HumaLOG 300 UNITS/3 ML VIAL SC PRN ×2 (06:17→17:50)
[2023-08-25] MEDS: Meropenem 2 GM, Admixture Fee 1 EACH in Sodium Chloride 0.9% 100 ML IVPB SCH ×3 (06:17→21:59)
[2023-08-25 06:31] LABS: #Eosinphils 0.1 thou/uL (0.0-0.7); #Monocytes 0.4 thou/uL (0.11-0.59); #Neutrophils 5.7 thou/uL (1.40-6.50); %Basophils 0.4 % (0.0-1.0); %Lymphocytes 19.5 % (21.0-51.0); %Monocytes 4.5 % (0.0-10.0); %Neutrophils 73.4 % (42.0-75.0); Hematocrit 28.4 % (42.0-52.0); Hemoglobin 8.9 g/dL (14.0-18.0); Mean Corpuscular HGB CONC 31.3 g/dL (32.0-36.0); Mean Platelet Volume 9.6 fL (7.4-10.4); RBC Distribution Width 14.9 % (11.5-14.5); Red Blood Cell (RBC) Count 3.42 mill/uL (4.70-6.10); White Blood Cell (WBC) Count 7.8 10x3/uL (4.8-10.8)
[2023-08-25 06:46] LABS: Platelet Count 228 10x3/uL (130-400)
[2023-08-25 06:52] LABS: Anion Gap 13 mmol/L (10-20); BUN (Urea Nitrogen) 31 mg/dL (8.4-25.7); Calc. Creatinine Clearance 94 mL/min (70-130); Calcium 8.9 mg/dL (7.8-10.44); Carbon Dioxide 27 mmol/L (23-31); Chloride 103 mmol/L (98-107); Estimated GFR 51; Glucose 253 mg/dL (80-115); Potassium 4.6 mmol/L (3.5-5.1); Sodium 138 mmol/L (136-145)
[2023-08-25] MEDS: METHadone HCl 10 MG TAB PO SCH ×4 (08:38→21:26)
[2023-08-25] MEDS: oxyCODONE/Acetaminophen 5 mg/325 mg Tablet PO SCH ×4 (08:39→21:26)
[2023-08-25] MEDS: Citalopram 20 MG TAB PO SCH (08:39)
[2023-08-25] MEDS: Gabapentin 300 MG CAP PO SCH ×3 (08:40→21:26)
[2023-08-25] MEDS: Aspirin 81 mg Enteric Coated Tablet PO SCH (08:40)
[2023-08-25] MEDS: Fenofibrate Nanocrystallized 145 MG TAB PO SCH (08:40)
[2023-08-25] MEDS: Apixaban 5 MG TAB PO SCH (21:26)
[2023-08-25] MEDS: Atorvastatin Calcium 40 MG TAB PO SCH (21:26)
[2023-08-25] MEDS: Insulin Glargine 30 UNITS/0.3 ML VIAL SC SCH (21:27)
[2023-08-26 06:07] LABS: #Basophils 0.1 thou/uL (0.0-0.2); #Eosinphils 0.4 thou/uL (0.0-0.7); #Monocytes 0.4 thou/uL (0.11-0.59); #Neutrophils 3.1 thou/uL (1.40-6.50); %Basophils 1.1 % (0.0-1.0); %Eosinophils 6.5 % (0.0-10.0); %Lymphocytes 37.5 % (21.0-51.0); %Monocytes 6.1 % (0.0-10.0); %Neutrophils 47.4 % (42.0-75.0); Hematocrit 28.5 % (42.0-52.0); Hemoglobin 8.8 g/dL (14.0-18.0); Mean Corpuscular HGB CONC 30.9 g/dL (32.0-36.0); Mean Corpuscular Hemoglobin 25.7 pg (27.0-31.0); Mean Corpuscular Volume 83.3 fl (78.0-98.0); Mean Platelet Volume 9.8 fL (7.4-10.4); Platelet Count 222 10x3/uL (130-400); RBC Distribution Width 15.5 % (11.5-14.5); Red Blood Cell (RBC) Count 3.42 mill/uL (4.70-6.10); White Blood Cell (WBC) Count 6.6 10x3/uL (4.8-10.8)
[2023-08-26 06:45] LABS: Anion Gap 11 mmol/L (10-20); BUN (Urea Nitrogen) 31 mg/dL (8.4-25.7); Calc. Creatinine Clearance 110 mL/min (70-130); Calcium 8.7 mg/dL (7.8-10.44); Carbon Dioxide 29 mmol/L (23-31); Chloride 104 mmol/L (98-107); Estimated GFR 63; Glucose 103 mg/dL (80-115); Potassium 4.5 mmol/L (3.5-5.1); Sodium 139 mmol/L (136-145)
[2023-08-26] MEDS: Atorvastatin Calcium 40 MG TAB PO SCH (09:49)
[2023-08-26] MEDS: Aspirin 81 mg Enteric Coated Tablet PO SCH (09:49)
[2023-08-26] MEDS: Gabapentin 300 MG CAP PO SCH ×2 (09:49→15:40)
[2023-08-26] MEDS: Fenofibrate Nanocrystallized 145 MG TAB PO SCH (09:49)
[2023-08-26] MEDS: Citalopram 20 MG TAB PO SCH (09:49)
[2023-08-26] MEDS: Apixaban 5 MG TAB PO SCH (09:50)
[2023-08-26] MEDS ORDERED: Ertapenem 1 GM in Sodium Chloride 0.9% 100 ML IVPB SCH (10:00)
[2023-08-26] MEDS: METHadone HCl 10 MG TAB PO SCH ×2 (10:04→13:50)
[2023-08-26] MEDS: oxyCODONE/Acetaminophen 5 mg/325 mg Tablet PO SCH ×2 (10:05→13:51)
[2023-08-26 16:54] VITALS: BP 131/63; TEMP 98.6
== END 2023-08-26 17:24 | disposition home or self-care (01) | DRG 690 ==
LOC: ERS 18:26 → T4-B 21:01
PROVIDERS: ADMIT Family Medicine; ATTEND Internal Medicine
PROC: 02HV33Z Insertion of Infusion Device into Superior Vena Cava, Percutaneous Approach (ICD-10-PCS; principal; 2023-08-24)
PROC: B5181ZA Fluoroscopy of Superior Vena Cava using Low Osmolar Contrast, Guidance (ICD-10-PCS; 2023-08-24)
PROC: B548ZZA Ultrasonography of Superior Vena Cava, Guidance (ICD-10-PCS; 2023-08-24)
PROC: 0T7D8ZZ Dilation of Urethra, Via Natural or Artificial Opening Endoscopic (ICD-10-PCS; 2023-08-24)
DX: N39.0 Urinary tract infection, site not specified (principal); Z16.24 Resistance to multiple antibiotics; E11.40 Type 2 diabetes mellitus with diabetic neuropathy, unspecified; E78.5 Hyperlipidemia, unspecified; G89.29 Other chronic pain; I48.0 Paroxysmal atrial fibrillation; E11.22 Type 2 diabetes mellitus with diabetic chronic kidney disease; E66.01 Morbid (severe) obesity due to excess calories; K21.9 Gastro-esophageal reflux disease without esophagitis; F39 Unspecified mood [affective] disorder; I12.9 Hypertensive chronic kidney disease with stage 1 through stage 4 chronic kidney disease, or unspecified chronic kidney disease; B96.1 Klebsiella pneumoniae [K. pneumoniae] as the cause of diseases classified elsewhere; N18.31 Chronic kidney disease, stage 3a; Z88.5 Allergy status to narcotic agent; Z79.899 Other long term (current) drug therapy; Z86.73 Personal history of transient ischemic attack (TIA), and cerebral infarction without residual deficits; Z90.49 Acquired absence of other specified parts of digestive tract; Z79.01 Long term (current) use of anticoagulants; Z98.890 Other specified postprocedural states; Z88.2 Allergy status to sulfonamides; Z88.8 Allergy status to other drugs, medicaments and biological substances; Z74.01 Bed confinement status
CPT/HCPCS: 36415; 36416; 36569; 76770; 80048; 80053; 81001; 83036; 85025; 85610; 85730; 87040; 93005; 96374; 97139; C1751; J1100; J1335; J1815; J2185; J2405; J2704; J2765; J3490; Q9967

== ENCOUNTER 2023-09-24 21:53 | Inpatient (IN) | payer MEDICARE, BC ==
[2023-09-24 22:58] LABS: #Eosinphils 0.5 thou/uL (0.0-0.7); #Monocytes 0.6 thou/uL (0.11-0.59); #Neutrophils 9.5 thou/uL (1.40-6.50); %Basophils 0.3 % (0.0-1.0); %Eosinophils 4.1 % (0.0-10.0); %Lymphocytes 10.5 % (21.0-51.0); %Monocytes 5.4 % (0.0-10.0); %Neutrophils 79.5 % (42.0-75.0); Hematocrit 29.4 % (42.0-52.0); Hemoglobin 9.2 g/dL (14.0-18.0); Mean Corpuscular HGB CONC 31.3 g/dL (32.0-36.0); Mean Corpuscular Hemoglobin 26.1 pg (27.0-31.0); Mean Corpuscular Volume 83.5 fl (78.0-98.0); Mean Platelet Volume 9.7 fL (7.4-10.4); Platelet Count 230 10x3/uL (130-400); RBC Distribution Width 16.2 % (11.5-14.5); Red Blood Cell (RBC) Count 3.52 mill/uL (4.70-6.10)
[2023-09-24] MEDS ORDERED: Piperacillin/Tazobactam 3.375 GM VIAL ONE (23:15)
[2023-09-24 23:24] LABS: ALT (SGPT) 16 U/L (8-55); AST (SGOT) 21 U/L (5-34); Albumin 4.1 g/dL (3.4-4.8); Alkaline Phosphatase 38 U/L (40-110); Anion Gap 15 mmol/L (10-20); BUN (Urea Nitrogen) 25 mg/dL (8.4-25.7); Bilirubin, Total 0.5 mg/dL (0.2-1.2); Calc. Creatinine Clearance 0 mL/min (70-130); Calcium 8.5 mg/dL (7.8-10.44); Carbon Dioxide 23 mmol/L (23-31); Chloride 104 mmol/L (98-107); Estimated GFR 47; Globulin 2.5 g/dL (2.4-3.5); Glucose 75 mg/dL (80-115); Potassium 4.9 mmol/L (3.5-5.1); Protein, Total 6.6 g/dL (5.8-8.1); Sodium 137 mmol/L (136-145)
[2023-09-24 23:27] LABS: Troponin I 0.012 ng/mL (< 0.028)
[2023-09-25] MEDS ORDERED: Vancomycin 1 GM/200 ML (FROZEN) BAG ONE (00:36)
[2023-09-25 01:32] LABS: Bilirubin Negative (Negative); Blood, Urine Negative (Negative); CAUTI Indications for Culture Alt mental st,lethar; Clarity Clear (Clear); Glucose, Urine (Dipstick) Normal (Negative); Ketone, Urine Negative (Negative); Leukocyte 250 Leu/uL (Negative); Nitrite 2+ (Negative); Protein, Urine (Dipstick) Negative (Neg-Trace); RBC/HPF 0-3 HPF (0-3); Squamous Epithelial None Seen HPF (0-3); Urobilinogen Normal mg/dL (Less than 2); WBC/HPF 21-50 HPF (0-3)
[2023-09-25 01:36] LABS: Bacteria/HPF 1+ HPF (None Seen)
[2023-09-25 01:37] LABS: Urine Culture Reflex Yes Yes
[2023-09-25] MEDS ORDERED: METHadone HCl 10 MG TAB PO SCH (02:00)
[2023-09-25] MEDS ORDERED: Gabapentin 300 MG CAP ONE (02:05)
[2023-09-25] MEDS ORDERED: oxyCODONE/Acetaminophen 5 mg/325 mg Tablet PO SCH ×2 (02:15→02:30)
[2023-09-25] MEDS ORDERED: Ondansetron PF 4 MG/2 ML Vial IVP PRN (02:49)
[2023-09-25] MEDS ORDERED: Glucagon 1 MG/ML KIT IM PRN (02:51)
[2023-09-25] MEDS ORDERED: Dextrose 50% Abboject 50 ML SYRINGE SLOW IVP PRN (02:51)
[2023-09-25] MEDS ORDERED: Dextrose 5% in Water 1,000 ML IV PRN (02:51)
[2023-09-25] MEDS ORDERED: Meropenem 2 GM, Admixture Fee 1 EACH in Sodium Chloride 0.9% 100 ML IVPB SCH (03:00)
[2023-09-25 04:47] LABS: #Eosinphils 0.3 thou/uL (0.0-0.7); #Monocytes 0.9 thou/uL (0.11-0.59); #Neutrophils 10.8 thou/uL (1.40-6.50); %Basophils 0.3 % (0.0-1.0); %Eosinophils 2.2 % (0.0-10.0); %Lymphocytes 9.8 % (21.0-51.0); %Monocytes 6.4 % (0.0-10.0); %Neutrophils 80.9 % (42.0-75.0); Hematocrit 28.4 % (42.0-52.0); Hemoglobin 8.8 g/dL (14.0-18.0); Mean Corpuscular Hemoglobin 26.1 pg (27.0-31.0); Mean Corpuscular Volume 84.3 fl (78.0-98.0); Mean Platelet Volume 9.7 fL (7.4-10.4); Platelet Count 216 10x3/uL (130-400); RBC Distribution Width 16.2 % (11.5-14.5); Red Blood Cell (RBC) Count 3.37 mill/uL (4.70-6.10); White Blood Cell (WBC) Count 13.3 10x3/uL (4.8-10.8)
[2023-09-25 05:42] VITALS: BMI 40.4
[2023-09-25 05:44] LABS: Anion Gap 13 mmol/L (10-20); BUN (Urea Nitrogen) 23 mg/dL (8.4-25.7); Calc. Creatinine Clearance 93 mL/min (70-130); Calcium 8.1 mg/dL (7.8-10.44); Carbon Dioxide 22 mmol/L (23-31); Chloride 106 mmol/L (98-107); Estimated GFR 50; Glucose 101 mg/dL (80-115); Potassium 4.3 mmol/L (3.5-5.1); Sodium 137 mmol/L (136-145)
[2023-09-25] MEDS ORDERED: HYDROcodone/Acetaminophen 10/325 mg Tablet PO PRN (06:10)
[2023-09-25] MEDS ORDERED: Dextrose 5 %-0.45 % NaCl 1,000 ML IV SCH (06:30)
[2023-09-25] MEDS ORDERED: Senokot S 8.6-50 MG TAB PO PRN (08:35)
[2023-09-25] MEDS: Meropenem 2 GM, Admixture Fee 1 EACH in Sodium Chloride 0.9% 100 ML IVPB SCH ×2 (11:10→18:13)
[2023-09-25] MEDS: Aspirin Chewable 81 MG TAB PO SCH (11:11)
[2023-09-25] MEDS: Citalopram 20 MG TAB PO SCH (11:11)
[2023-09-25] MEDS: Apixaban 5 MG TAB PO SCH ×2 (11:11→21:19)
[2023-09-25] MEDS: METHadone HCl 10 MG TAB PO PRN ×3 (12:08→21:20)
[2023-09-25] MEDS: Acetaminophen 325 MG TAB PO PRN (12:08)
[2023-09-25] MEDS: Gabapentin 300 MG CAP PO SCH ×2 (14:06→21:20)
[2023-09-25] MEDS: oxyCODONE 5 MG TAB PO PRN ×2 (14:07→18:12)
[2023-09-25] MEDS: oxyCODONE/Acetaminophen 5 mg/325 mg Tablet PO PRN ×2 (14:09→18:13)
[2023-09-25] MEDS: Atorvastatin Calcium 40 MG TAB PO SCH (21:19)
[2023-09-26] MEDS: Meropenem 2 GM, Admixture Fee 1 EACH in Sodium Chloride 0.9% 100 ML IVPB SCH ×3 (02:14→18:02)
[2023-09-26] MEDS: METHadone HCl 10 MG TAB PO PRN ×5 (02:19→22:26)
[2023-09-26] MEDS: Acetaminophen 325 MG TAB PO PRN (02:20)
[2023-09-26 04:45] LABS: #Eosinphils 0.5 thou/uL (0.0-0.7); #Monocytes 0.7 thou/uL (0.11-0.59); #Neutrophils 5.6 thou/uL (1.40-6.50); %Basophils 0.5 % (0.0-1.0); %Eosinophils 6.1 % (0.0-10.0); %Lymphocytes 17.8 % (21.0-51.0); %Neutrophils 67.2 % (42.0-75.0); Hemoglobin 8.2 g/dL (14.0-18.0); Mean Corpuscular HGB CONC 30.4 g/dL (32.0-36.0); Mean Corpuscular Volume 85.7 fl (78.0-98.0); Mean Platelet Volume 10.1 fL (7.4-10.4); Platelet Count 194 10x3/uL (130-400); RBC Distribution Width 16.3 % (11.5-14.5); Red Blood Cell (RBC) Count 3.15 mill/uL (4.70-6.10); White Blood Cell (WBC) Count 8.4 10x3/uL (4.8-10.8)
[2023-09-26 05:21] LABS: Anion Gap 13 mmol/L (10-20); BUN (Urea Nitrogen) 24 mg/dL (8.4-25.7); Calc. Creatinine Clearance 84 mL/min (70-130); Calcium 8.1 mg/dL (7.8-10.44); Carbon Dioxide 25 mmol/L (23-31); Chloride 104 mmol/L (98-107); Estimated GFR 43; Glucose 169 mg/dL (80-115); Potassium 4.5 mmol/L (3.5-5.1); Sodium 137 mmol/L (136-145)
[2023-09-26] MEDS: Aspirin Chewable 81 MG TAB PO SCH (08:20)
[2023-09-26] MEDS: Apixaban 5 MG TAB PO SCH ×2 (08:20→22:27)
[2023-09-26] MEDS: Citalopram 20 MG TAB PO SCH (08:20)
[2023-09-26] MEDS: Gabapentin 300 MG CAP PO SCH ×3 (08:20→22:27)
[2023-09-26] MEDS ORDERED: FLU VACC QS2023-24(6MOS UP)/PF 60 MCG/0.5 ML SYRINGE IM ONE (09:00)
[2023-09-26] MEDS: oxyCODONE 5 MG TAB PO PRN ×2 (10:00→16:38)
[2023-09-26] MEDS: oxyCODONE/Acetaminophen 5 mg/325 mg Tablet PO PRN ×2 (10:00→16:39)
[2023-09-26] MEDS ORDERED: Polyethylene Glycol 3350 17 GM Packet PO PRN ×2 (12:07→12:25)
[2023-09-26] MEDS ORDERED: Docusate 100 MG CAP PO PRN ×2 (12:07→12:25)
[2023-09-26] MEDS ORDERED: Dextrose 5% in Water 1,000 ML IV PRN (12:22)
[2023-09-26] MEDS ORDERED: Glucagon 1 MG/ML KIT IM PRN (12:22)
[2023-09-26] MEDS ORDERED: Dextrose 50% Abboject 50 ML SYRINGE SLOW IVP PRN (12:22)
[2023-09-26] MEDS: Atorvastatin Calcium 40 MG TAB PO SCH (22:27)
[2023-09-26] MEDS ORDERED: Nitroglycerin 0.4 MG TAB (25 Tab Bottle) SL PRN (22:51)
[2023-09-26] MEDS: HumaLOG 300 UNITS/3 ML VIAL SC PRN (23:08)
[2023-09-27] MEDS: oxyCODONE 5 MG TAB PO PRN ×4 (00:29→20:39)
[2023-09-27] MEDS: Acetaminophen 325 MG TAB PO PRN ×2 (00:29→20:41)
[2023-09-27 01:02] LABS: Troponin I Less than 0.010 ng/mL (< 0.028)
[2023-09-27] MEDS: Meropenem 2 GM, Admixture Fee 1 EACH in Sodium Chloride 0.9% 100 ML IVPB SCH ×2 (02:32→09:10)
[2023-09-27 06:45] LABS: #Eosinphils 0.5 thou/uL (0.0-0.7); #Monocytes 0.5 thou/uL (0.11-0.59); %Basophils 0.5 % (0.0-1.0); %Eosinophils 6.8 % (0.0-10.0); %Lymphocytes 18.5 % (21.0-51.0); %Monocytes 6.2 % (0.0-10.0); %Neutrophils 67.7 % (42.0-75.0); Hematocrit 25.9 % (42.0-52.0); Hemoglobin 7.9 g/dL (14.0-18.0); Mean Corpuscular HGB CONC 30.5 g/dL (32.0-36.0); Mean Corpuscular Hemoglobin 25.7 pg (27.0-31.0); Mean Corpuscular Volume 84.4 fl (78.0-98.0); Mean Platelet Volume 10.2 fL (7.4-10.4); Platelet Count 204 10x3/uL (130-400); RBC Distribution Width 16.1 % (11.5-14.5); Red Blood Cell (RBC) Count 3.07 mill/uL (4.70-6.10); White Blood Cell (WBC) Count 7.3 10x3/uL (4.8-10.8)
[2023-09-27 07:10] LABS: Anion Gap 13 mmol/L (10-20); BUN (Urea Nitrogen) 26 mg/dL (8.4-25.7); Calc. Creatinine Clearance 98 mL/min (70-130); Calcium 8.5 mg/dL (7.8-10.44); Carbon Dioxide 25 mmol/L (23-31); Chloride 105 mmol/L (98-107); Estimated GFR 53; Glucose 171 mg/dL (80-115); Sodium 138 mmol/L (136-145)
[2023-09-27] MEDS: Apixaban 5 MG TAB PO SCH ×2 (09:11→20:41)
[2023-09-27] MEDS: Citalopram 20 MG TAB PO SCH (09:11)
[2023-09-27] MEDS: Gabapentin 300 MG CAP PO SCH ×3 (09:11→20:38)
[2023-09-27] MEDS: Aspirin Chewable 81 MG TAB PO SCH (09:11)
[2023-09-27] MEDS: HumaLOG 300 UNITS/3 ML VIAL SC PRN (11:45)
[2023-09-27] MEDS: oxyCODONE/Acetaminophen 5 mg/325 mg Tablet PO PRN ×2 (11:52→15:52)
[2023-09-27] MEDS: METHadone HCl 10 MG TAB PO PRN ×3 (11:52→20:39)
[2023-09-27] MEDS ORDERED: Ipratropium/Albuterol 3 ML NEB NEB SCH (12:45)
[2023-09-27] MEDS ORDERED: Piperacillin/Tazobactam 3.375 GM in Sodium Chloride 0.9% 100 ML IVPB SCH ×2 (15:45→16:00)
[2023-09-27] MEDS ORDERED: Vancomycin (BATCH) 2 GM in Premix 1 BAG IVPB SCH (20:15)
[2023-09-27] MEDS: Atorvastatin Calcium 40 MG TAB PO SCH (20:38)
[2023-09-27] MEDS: Ipratropium/Albuterol 3 ML NEB NEB PRN (21:39)
[2023-09-27] MEDS: Piperacillin/Tazobactam 3.375 GM in Sodium Chloride 0.9% 100 ML IVPB SCH (23:49)
[2023-09-28 05:58] LABS: Hematocrit 24.4 % (42.0-52.0); Hemoglobin 7.4 g/dL (14.0-18.0); Mean Corpuscular HGB CONC 30.3 g/dL (32.0-36.0); Mean Corpuscular Hemoglobin 25.9 pg (27.0-31.0); Mean Corpuscular Volume 85.3 fl (78.0-98.0); Mean Platelet Volume 10.1 fL (7.4-10.4); Platelet Count 200 10x3/uL (130-400); RBC Distribution Width 15.9 % (11.5-14.5); Red Blood Cell (RBC) Count 2.86 mill/uL (4.70-6.10); White Blood Cell (WBC) Count 5.3 10x3/uL (4.8-10.8)
[2023-09-28] MEDS: Piperacillin/Tazobactam 3.375 GM in Sodium Chloride 0.9% 100 ML IVPB SCH (06:29)
[2023-09-28 06:45] LABS: Anion Gap 17 mmol/L (10-20); BUN (Urea Nitrogen) 23 mg/dL (8.4-25.7); Calc. Creatinine Clearance 102 mL/min (70-130); Calcium 8.2 mg/dL (7.8-10.44); Carbon Dioxide 22 mmol/L (23-31); Chloride 105 mmol/L (98-107); Estimated GFR 55; Glucose 134 mg/dL (80-115); Potassium 4.5 mmol/L (3.5-5.1); Sodium 139 mmol/L (136-145)
[2023-09-28] MEDS ORDERED: Vancomycin 1 GM in Premix 1 BAG IVPB SCH (09:00)
[2023-09-28] MEDS: Citalopram 20 MG TAB PO SCH (09:19)
[2023-09-28] MEDS: Apixaban 5 MG TAB PO SCH ×2 (09:19→21:01)
[2023-09-28] MEDS: Aspirin Chewable 81 MG TAB PO SCH (09:19)
[2023-09-28] MEDS: Gabapentin 300 MG CAP PO SCH ×3 (09:20→21:00)
[2023-09-28] MEDS: oxyCODONE/Acetaminophen 5 mg/325 mg Tablet PO PRN ×4 (09:37→23:58)
[2023-09-28] MEDS: oxyCODONE 5 MG TAB PO PRN ×4 (09:37→23:58)
[2023-09-28] MEDS: METHadone HCl 10 MG TAB PO PRN ×4 (09:38→23:59)
[2023-09-28] MEDS: HumaLOG 300 UNITS/3 ML VIAL SC PRN ×2 (11:27→17:41)
[2023-09-28] MEDS: Ciprofloxacin Lactate/D5W 400 MG in Premix 1 BAG IVPB SCH ×2 (11:56→23:59)
[2023-09-28] MEDS: AMOXicillin 250 MG CAP PO SCH (21:00)
[2023-09-28] MEDS: Atorvastatin Calcium 40 MG TAB PO SCH (21:01)
[2023-09-28] MEDS: Ipratropium/Albuterol 3 ML NEB NEB PRN (21:17)
[2023-09-29] MEDS: oxyCODONE/Acetaminophen 5 mg/325 mg Tablet PO PRN ×3 (04:09→16:09)
[2023-09-29] MEDS: oxyCODONE 5 MG TAB PO PRN ×4 (04:10→20:16)
[2023-09-29] MEDS: METHadone HCl 10 MG TAB PO PRN ×4 (04:10→20:20)
[2023-09-29 05:22] LABS: Hematocrit 24.5 % (42.0-52.0); Hemoglobin 7.4 g/dL (14.0-18.0); Mean Corpuscular HGB CONC 30.2 g/dL (32.0-36.0); Mean Corpuscular Hemoglobin 26.1 pg (27.0-31.0); Mean Corpuscular Volume 86.6 fl (78.0-98.0); Mean Platelet Volume 10.3 fL (7.4-10.4); Platelet Count 250 10x3/uL (130-400); Red Blood Cell (RBC) Count 2.83 mill/uL (4.70-6.10); White Blood Cell (WBC) Count 6.9 10x3/uL (4.8-10.8)
[2023-09-29 05:47] LABS: Anion Gap 15 mmol/L (10-20); BUN (Urea Nitrogen) 26 mg/dL (8.4-25.7); Calc. Creatinine Clearance 95 mL/min (70-130); Calcium 8.4 mg/dL (7.8-10.44); Carbon Dioxide 28 mmol/L (23-31); Chloride 102 mmol/L (98-107); Estimated GFR 50; Glucose 123 mg/dL (80-115); Potassium 4.9 mmol/L (3.5-5.1); Sodium 140 mmol/L (136-145)
[2023-09-29] MEDS: AMOXicillin 250 MG CAP PO SCH ×3 (08:37→20:29)
[2023-09-29] MEDS: Aspirin Chewable 81 MG TAB PO SCH (08:49)
[2023-09-29] MEDS: Citalopram 20 MG TAB PO SCH (08:53)
[2023-09-29] MEDS: Apixaban 5 MG TAB PO SCH ×2 (08:53→20:16)
[2023-09-29] MEDS: Gabapentin 300 MG CAP PO SCH ×3 (08:54→20:18)
[2023-09-29] MEDS: Ciprofloxacin Lactate/D5W 400 MG in Premix 1 BAG IVPB SCH (11:28)
[2023-09-29] MEDS ORDERED: Magnevist 469MG/ML 20 ML VIAL ONE (13:14)
[2023-09-29] MEDS: HumaLOG 300 UNITS/3 ML VIAL SC PRN ×2 (17:42→20:30)
[2023-09-29] MEDS ORDERED: diphenhydrAMINE 50 MG/ML VIAL IVP SCH (19:45)
[2023-09-29] MEDS: Atorvastatin Calcium 40 MG TAB PO SCH (20:21)
[2023-09-30] MEDS: Ciprofloxacin Lactate/D5W 400 MG in Premix 1 BAG IVPB SCH ×2 (00:34→11:28)
[2023-09-30 05:22] LABS: Hematocrit 22.9 % (42.0-52.0); Mean Corpuscular HGB CONC 30.6 g/dL (32.0-36.0); Mean Corpuscular Hemoglobin 25.8 pg (27.0-31.0); Mean Corpuscular Volume 84.5 fl (78.0-98.0); Mean Platelet Volume 10.1 fL (7.4-10.4); Platelet Count 240 10x3/uL (130-400); RBC Distribution Width 15.9 % (11.5-14.5); Red Blood Cell (RBC) Count 2.71 mill/uL (4.70-6.10); White Blood Cell (WBC) Count 5.2 10x3/uL (4.8-10.8)
[2023-09-30 05:46] LABS: Anion Gap 12 mmol/L (10-20); BUN (Urea Nitrogen) 23 mg/dL (8.4-25.7); Calc. Creatinine Clearance 115 mL/min (70-130); Calcium 8.4 mg/dL (7.8-10.44); Carbon Dioxide 30 mmol/L (23-31); Chloride 101 mmol/L (98-107); Estimated GFR 63; Glucose 129 mg/dL (80-115); Potassium 4.5 mmol/L (3.5-5.1); Sodium 138 mmol/L (136-145)
[2023-09-30] MEDS: Apixaban 5 MG TAB PO SCH ×2 (09:18→21:09)
[2023-09-30] MEDS: Aspirin Chewable 81 MG TAB PO SCH (09:18)
[2023-09-30] MEDS: Citalopram 20 MG TAB PO SCH (09:18)
[2023-09-30] MEDS: Gabapentin 300 MG CAP PO SCH ×3 (09:19→21:09)
[2023-09-30] MEDS: oxyCODONE 5 MG TAB PO PRN ×3 (09:19→18:26)
[2023-09-30] MEDS: oxyCODONE/Acetaminophen 5 mg/325 mg Tablet PO PRN ×3 (09:19→18:26)
[2023-09-30] MEDS: AMOXicillin 250 MG CAP PO SCH ×2 (09:20→21:10)
[2023-09-30] MEDS: METHadone HCl 10 MG TAB PO PRN ×3 (09:20→18:26)
[2023-09-30 16:08] LABS: Hemoglobin 7.6 g/dL (14.0-18.0)
[2023-09-30 16:24] LABS: Iron 19 ug/dL (65-175); Iron Binding Capacity, Total 254 mcg/dL (261-462)
[2023-09-30 17:25] LABS: Ferritin 211.71 ng/mL (22-322)
[2023-09-30] MEDS: Atorvastatin Calcium 40 MG TAB PO SCH (21:09)
[2023-10-01] MEDS: Ciprofloxacin Lactate/D5W 400 MG in Premix 1 BAG IVPB SCH ×3 (00:08→23:36)
[2023-10-01] MEDS: HumaLOG 300 UNITS/3 ML VIAL SC PRN ×4 (00:09→20:21)
[2023-10-01] MEDS: Gabapentin 300 MG CAP PO SCH ×3 (10:01→20:19)
[2023-10-01] MEDS: Apixaban 5 MG TAB PO SCH ×2 (10:01→20:18)
[2023-10-01] MEDS: Citalopram 20 MG TAB PO SCH (10:02)
[2023-10-01] MEDS: AMOXicillin 250 MG CAP PO SCH ×2 (10:02→20:20)
[2023-10-01] MEDS: Aspirin Chewable 81 MG TAB PO SCH (10:02)
[2023-10-01] MEDS: oxyCODONE/Acetaminophen 5 mg/325 mg Tablet PO PRN (12:08)
[2023-10-01] MEDS: METHadone HCl 10 MG TAB PO PRN (12:09)
[2023-10-01] MEDS: oxyCODONE 5 MG TAB PO PRN (12:10)
[2023-10-01 14:19] LABS: #Eosinphils 0.5 thou/uL (0.0-0.7); #Monocytes 0.3 thou/uL (0.11-0.59); #Neutrophils 4.4 thou/uL (1.40-6.50); %Basophils 0.6 % (0.0-1.0); %Eosinophils 7.2 % (0.0-10.0); %Lymphocytes 16.2 % (21.0-51.0); %Monocytes 5.5 % (0.0-10.0); %Neutrophils 70.2 % (42.0-75.0); Hematocrit 25.4 % (42.0-52.0); Hemoglobin 7.8 g/dL (14.0-18.0); Mean Corpuscular HGB CONC 30.7 g/dL (32.0-36.0); Mean Corpuscular Hemoglobin 25.4 pg (27.0-31.0); Mean Corpuscular Volume 82.7 fl (78.0-98.0); Mean Platelet Volume 9.8 fL (7.4-10.4); Platelet Count 276 10x3/uL (130-400); RBC Distribution Width 15.3 % (11.5-14.5); Red Blood Cell (RBC) Count 3.07 mill/uL (4.70-6.10); White Blood Cell (WBC) Count 6.2 10x3/uL (4.8-10.8)
[2023-10-01] MEDS: oxyCODONE 5 MG TAB PO SCH ×3 (15:56→23:56)
[2023-10-01] MEDS: oxyCODONE/Acetaminophen 5 mg/325 mg Tablet PO SCH ×3 (15:56→23:56)
[2023-10-01] MEDS: METHadone HCl 10 MG TAB PO SCH ×3 (15:57→23:56)
[2023-10-01] MEDS: Atorvastatin Calcium 40 MG TAB PO SCH (20:20)
[2023-10-02] MEDS: METHadone HCl 10 MG TAB PO SCH ×7 (00:28→23:55)
[2023-10-02] MEDS: oxyCODONE/Acetaminophen 5 mg/325 mg Tablet PO SCH ×7 (00:28→23:56)
[2023-10-02] MEDS: oxyCODONE 5 MG TAB PO SCH ×7 (00:29→23:57)
[2023-10-02 04:47] LABS: #Eosinphils 0.7 thou/uL (0.0-0.7); #Monocytes 0.4 thou/uL (0.11-0.59); #Neutrophils 2.9 thou/uL (1.40-6.50); %Basophils 0.7 % (0.0-1.0); %Eosinophils 11.2 % (0.0-10.0); %Lymphocytes 31.1 % (21.0-51.0); %Monocytes 7.1 % (0.0-10.0); %Neutrophils 49.2 % (42.0-75.0); Hematocrit 25.6 % (42.0-52.0); Hemoglobin 7.8 g/dL (14.0-18.0); Mean Corpuscular HGB CONC 30.5 g/dL (32.0-36.0); Mean Corpuscular Hemoglobin 25.2 pg (27.0-31.0); Mean Corpuscular Volume 82.8 fl (78.0-98.0); Mean Platelet Volume 9.8 fL (7.4-10.4); Platelet Count 307 10x3/uL (130-400); RBC Distribution Width 15.5 % (11.5-14.5); Red Blood Cell (RBC) Count 3.09 mill/uL (4.70-6.10); White Blood Cell (WBC) Count 5.9 10x3/uL (4.8-10.8)
[2023-10-02] MEDS: HumaLOG 300 UNITS/3 ML VIAL SC PRN ×3 (06:35→16:47)
[2023-10-02] MEDS: Gabapentin 300 MG CAP PO SCH ×3 (08:52→20:13)
[2023-10-02] MEDS: Aspirin Chewable 81 MG TAB PO SCH (08:52)
[2023-10-02] MEDS: Citalopram 20 MG TAB PO SCH (08:53)
[2023-10-02] MEDS: AMOXicillin 250 MG CAP PO SCH ×2 (08:54→20:16)
[2023-10-02] MEDS: Ciprofloxacin Lactate/D5W 400 MG in Premix 1 BAG IVPB SCH ×2 (12:16→23:59)
[2023-10-02] MEDS ORDERED: GoLYTELY 4,000 ml Bottle PO SCH (17:00)
[2023-10-02] MEDS: Atorvastatin Calcium 40 MG TAB PO SCH (20:16)
[2023-10-03] MEDS: oxyCODONE/Acetaminophen 5 mg/325 mg Tablet PO SCH ×6 (03:40→23:44)
[2023-10-03] MEDS: METHadone HCl 10 MG TAB PO SCH ×6 (03:41→23:45)
[2023-10-03] MEDS: oxyCODONE 5 MG TAB PO SCH ×6 (03:42→23:44)
[2023-10-03] MEDS ORDERED: Lidocaine Jelly 2% Urojet 10 ML ONE (07:51)
[2023-10-03] MEDS ORDERED: fentaNYL PF 100 MCG/2 ML SYRINGE ONE (08:07)
[2023-10-03] MEDS ORDERED: PROPOFOL 20 ML ONE (08:07)
[2023-10-03] MEDS ORDERED: Midazolam HCl 2 mg/2 ml Vial ONE (08:07)
[2023-10-03] MEDS ORDERED: Rocuronium Bromide 10 MG/ML (10ML VIAL) ONE (08:09)
[2023-10-03] MEDS ORDERED: Ondansetron PF 4 MG/2 ML Vial ONE (08:09)
[2023-10-03] MEDS ORDERED: Lidocaine 1% PF 5 ML VIAL ONE (08:09)
[2023-10-03] MEDS ORDERED: Dexamethasone 20 MG/5 ML VIAL ONE (08:09)
[2023-10-03] MEDS ORDERED: Simethicone 40 MG/0.6 ML Drop 30 ML BOT ONE (08:20)
[2023-10-03] MEDS ORDERED: ePHEDrine Sulfate 50 MG/10 ML VIAL ONE (08:36)
[2023-10-03] MEDS ORDERED: SUGAMMADEX SODIUM 200 MG/2 ML VIAL ONE (09:19)
[2023-10-03] MEDS: Gabapentin 300 MG CAP PO SCH ×3 (10:43→20:11)
[2023-10-03] MEDS: Apixaban 5 MG TAB PO SCH ×2 (10:44→23:16)
[2023-10-03] MEDS: Citalopram 20 MG TAB PO SCH (10:44)
[2023-10-03] MEDS: AMOXicillin 250 MG CAP PO SCH ×2 (10:44→20:12)
[2023-10-03] MEDS: Aspirin Chewable 81 MG TAB PO SCH (10:44)
[2023-10-03] MEDS: Cyanocobalamin (Vitamin B-12) 1,000 MCG TAB PO SCH (12:25)
[2023-10-03] MEDS: Ciprofloxacin Lactate/D5W 400 MG in Premix 1 BAG IVPB SCH ×2 (12:27→23:45)
[2023-10-03] MEDS: HumaLOG 300 UNITS/3 ML VIAL SC PRN ×2 (16:45→20:38)
[2023-10-03] MEDS: Atorvastatin Calcium 40 MG TAB PO SCH (20:11)
[2023-10-04] MEDS: METHadone HCl 10 MG TAB PO SCH ×6 (04:33→23:10)
[2023-10-04] MEDS: oxyCODONE 5 MG TAB PO SCH ×6 (04:34→23:11)
[2023-10-04] MEDS: oxyCODONE/Acetaminophen 5 mg/325 mg Tablet PO SCH ×6 (04:34→23:09)
[2023-10-04] MEDS: HumaLOG 300 UNITS/3 ML VIAL SC PRN ×4 (06:14→20:10)
[2023-10-04] MEDS: Aspirin Chewable 81 MG TAB PO SCH (08:27)
[2023-10-04] MEDS: Citalopram 20 MG TAB PO SCH (08:27)
[2023-10-04] MEDS: Cyanocobalamin (Vitamin B-12) 1,000 MCG TAB PO SCH (08:27)
[2023-10-04] MEDS: Gabapentin 300 MG CAP PO SCH ×3 (08:29→20:04)
[2023-10-04] MEDS: AMOXicillin 250 MG CAP PO SCH ×2 (08:30→20:07)
[2023-10-04] MEDS: Apixaban 5 MG TAB PO SCH ×2 (10:07→20:06)
[2023-10-04] MEDS: Ciprofloxacin Lactate/D5W 400 MG in Premix 1 BAG IVPB SCH ×2 (12:03→23:11)
[2023-10-04] MEDS: Atorvastatin Calcium 40 MG TAB PO SCH (20:04)
[2023-10-05] MEDS: METHadone HCl 10 MG TAB PO SCH ×5 (03:31→21:30)
[2023-10-05] MEDS: oxyCODONE/Acetaminophen 5 mg/325 mg Tablet PO SCH ×5 (03:35→21:30)
[2023-10-05] MEDS: oxyCODONE 5 MG TAB PO SCH ×5 (03:35→21:31)
[2023-10-05] MEDS ORDERED: Iopamidol-370 76% 500 ML BOT (X-RAY USE) FS ONE (07:11)
[2023-10-05] MEDS: Apixaban 5 MG TAB PO SCH ×2 (08:32→21:30)
[2023-10-05] MEDS ORDERED: Bupivacaine PF 0.5% 30 ML VIAL ONE (09:40)
[2023-10-05] MEDS ORDERED: Midazolam HCl 2 mg/2 ml Vial ONE (09:43)
[2023-10-05] MEDS ORDERED: Ondansetron PF 4 MG/2 ML Vial ONE (09:43)
[2023-10-05] MEDS ORDERED: Dexamethasone 4 mg/ml Vial ONE (09:43)
[2023-10-05] MEDS ORDERED: PROPOFOL 20 ML ONE (09:43)
[2023-10-05] MEDS ORDERED: fentaNYL PF 100 MCG/2 ML SYRINGE ONE (09:43)
[2023-10-05] MEDS ORDERED: Lidocaine 2% PF 5 ML VIAL ONE (09:43)
[2023-10-05] MEDS ORDERED: Rocuronium Bromide 10 MG/ML (10ML VIAL) ONE (09:43)
[2023-10-05] MEDS ORDERED: PROPOFOL 40 ML ONE (10:37)
[2023-10-05] MEDS: Ciprofloxacin Lactate/D5W 400 MG in Premix 1 BAG IVPB SCH (12:25)
[2023-10-05] MEDS: Ferrous Sulfate 325 MG TAB PO SCH (13:47)
[2023-10-05] MEDS: Gabapentin 300 MG CAP PO SCH ×3 (13:48→21:29)
[2023-10-05] MEDS: Cyanocobalamin (Vitamin B-12) 1,000 MCG TAB PO SCH (13:48)
[2023-10-05] MEDS: Citalopram 20 MG TAB PO SCH (13:48)
[2023-10-05] MEDS: Atorvastatin Calcium 40 MG TAB PO SCH (21:31)
[2023-10-05] MEDS: HumaLOG 300 UNITS/3 ML VIAL SC PRN (22:06)
[2023-10-06] MEDS: Ciprofloxacin Lactate/D5W 400 MG in Premix 1 BAG IVPB SCH (00:38)
[2023-10-06] MEDS: oxyCODONE 5 MG TAB PO SCH ×4 (00:38→11:56)
[2023-10-06] MEDS: oxyCODONE/Acetaminophen 5 mg/325 mg Tablet PO SCH ×4 (00:39→11:56)
[2023-10-06] MEDS: METHadone HCl 10 MG TAB PO SCH ×4 (00:39→11:57)
[2023-10-06] MEDS: HumaLOG 300 UNITS/3 ML VIAL SC PRN (06:00)
[2023-10-06] MEDS: Aspirin Chewable 81 MG TAB PO SCH (08:00)
[2023-10-06] MEDS: Ferrous Sulfate 325 MG TAB PO SCH (08:01)
[2023-10-06] MEDS: Cyanocobalamin (Vitamin B-12) 1,000 MCG TAB PO SCH (08:02)
[2023-10-06] MEDS: Apixaban 5 MG TAB PO SCH (08:02)
[2023-10-06] MEDS: Citalopram 20 MG TAB PO SCH (08:02)
[2023-10-06] MEDS: Gabapentin 300 MG CAP PO SCH (08:02)
[2023-10-06 09:08] VITALS: BP 132/70; TEMP 97.9
== END 2023-10-06 13:21 | DRG 853 ==
LOC: ERS 21:53 → 2NO 09-25 03:30 → MSONC 09-26 13:55
PROVIDERS: ADMIT Internal Medicine; ATTEND Internal Medicine
PROC: 3E03329 Introduction of Other Anti-infective into Peripheral Vein, Percutaneous Approach (ICD-10-PCS; 2023-09-25)
PROC: 5A09457 Assistance with Respiratory Ventilation, 24-96 Consecutive Hours, Continuous Positive Airway Pressure (ICD-10-PCS; 2023-10-01)
PROC: 0DB98ZX Excision of Duodenum, Via Natural or Artificial Opening Endoscopic, Diagnostic (ICD-10-PCS; 2023-10-03)
PROC: 0DB68ZX Excision of Stomach, Via Natural or Artificial Opening Endoscopic, Diagnostic (ICD-10-PCS; 2023-10-03)
PROC: 0DB58ZX Excision of Esophagus, Via Natural or Artificial Opening Endoscopic, Diagnostic (ICD-10-PCS; 2023-10-03)
PROC: 0DJD8ZZ Inspection of Lower Intestinal Tract, Via Natural or Artificial Opening Endoscopic (ICD-10-PCS; 2023-10-03)
PROC: 0JBQ0ZZ Excision of Right Foot Subcutaneous Tissue and Fascia, Open Approach (ICD-10-PCS; principal; 2023-10-05)
DX: A41.4 Sepsis due to anaerobes (principal); G93.41 Metabolic encephalopathy; N39.0 Urinary tract infection, site not specified; L97.413 Non-pressure chronic ulcer of right heel and midfoot with necrosis of muscle; N18.30 Chronic kidney disease, stage 3 unspecified; D63.1 Anemia in chronic kidney disease; G47.33 Obstructive sleep apnea (adult) (pediatric); B96.1 Klebsiella pneumoniae [K. pneumoniae] as the cause of diseases classified elsewhere; E11.649 Type 2 diabetes mellitus with hypoglycemia without coma; I48.0 Paroxysmal atrial fibrillation; D50.9 Iron deficiency anemia, unspecified; E11.621 Type 2 diabetes mellitus with foot ulcer; G89.4 Chronic pain syndrome; M54.50 Low back pain, unspecified; E11.40 Type 2 diabetes mellitus with diabetic neuropathy, unspecified; E11.22 Type 2 diabetes mellitus with diabetic chronic kidney disease; Z88.2 Allergy status to sulfonamides; Z88.8 Allergy status to other drugs, medicaments and biological substances; Z79.82 Long term (current) use of aspirin; Z79.899 Other long term (current) drug therapy; Z90.49 Acquired absence of other specified parts of digestive tract; Z98.890 Other specified postprocedural states; Z79.01 Long term (current) use of anticoagulants; F44.4 Conversion disorder with motor symptom or deficit; Z74.01 Bed confinement status; N13.70 Vesicoureteral-reflux, unspecified
CPT/HCPCS: 36415; 36416; 51600; 51701; 70450; 71045; 72158; 74176; 74430; 80048; 80053; 81001; 82274; 82607; 82728; 83540; 83550; 83605; 83880; 84484; 85025; 85027; 85046; 87040; 87070; 87077; 87086; 87149; 87186; 87205; 88305; 93005; 93010; 94640; 94660; 96365; 96366; 96367; 97139; A9579; J0744; J1100; J1815; J2001; J2185; J2250; J2405; J2543; J2704; J3370; J3370-JW; J3490; J7620; Q9967; S0020

== ENCOUNTER → 2023-11-19 | Day surgery (SDC) | payer MEDICARE, BC ==
[~2023-11-19] MED LIST: Ertapenem 1 GM in Sodium Chloride 0.9% 100 ML IVPB SCH; FLU VACC QS2023-24(6MOS UP)/PF 60 MCG/0.5 ML SYRINGE IM ONE; Lidocaine 1% PF 5 ML VIAL ONE; Lidocaine 2% Jelly 5 ML TUBE TOP SCH; Midazolam HCl 2 mg/2 ml Vial ONE; Sodium Bicarbonate 2.5 MEQ/5 ML SDV ONE; fentaNYL 50 mcg/mL 1 mL Vial ONE
[2023-11-19 09:38] VITALS: BP 144/79; TEMP 98.8
[2023-11-19 11:22] LABS: #Eosinphils 0.5 thou/uL (0.0-0.7); #Monocytes 0.4 thou/uL (0.11-0.59); %Basophils 0.5 % (0.0-1.0); %Eosinophils 8.2 % (0.0-10.0); %Lymphocytes 30.3 % (21.0-51.0); %Monocytes 6.4 % (0.0-10.0); %Neutrophils 54.2 % (42.0-75.0); Hemoglobin 10.1 g/dL (14.0-18.0); Mean Corpuscular HGB CONC 30.6 g/dL (32.0-36.0); Mean Corpuscular Hemoglobin 26.4 pg (27.0-31.0); Mean Corpuscular Volume 86.2 fl (78.0-98.0); Mean Platelet Volume 9.9 fL (7.4-10.4); Platelet Count 237 10x3/uL (130-400); Red Blood Cell (RBC) Count 3.83 mill/uL (4.70-6.10); White Blood Cell (WBC) Count 5.6 10x3/uL (4.8-10.8)
[2023-11-19 11:38] LABS: PTT 28.2 sec (22.9-36.1); Prothrombin Time 13.4 sec (12.0-14.7)
== END ==
LOC: CT 08:24
PROVIDERS: ATTEND Urology
PROC: 0T9B70Z Drainage of Bladder with Drainage Device, Via Natural or Artificial Opening (ICD-10-PCS; principal; 2023-11-19)
DX: R33.9 Retention of urine, unspecified (principal); R39.14 Feeling of incomplete bladder emptying; I48.0 Paroxysmal atrial fibrillation
CPT/HCPCS: 51102; 77002; 85025; 85610; 85730; C2627; J1335; J2250; J3010; J3490

== ENCOUNTER 2024-01-20 09:51 | Inpatient (IN) | payer MEDICARE, BC ==
[2024-01-20] MEDS ORDERED: Iopamidol-370 76% 500 ML MDV (1 ML CHARGE) ONE (09:57)
[2024-01-20 10:26] LABS: #Basophils 0.03 10x3/uL (0.0-0.2); %Basophils 0.3 % (0.0-1.0); %Eosinophils 4.2 % (0.0-10.0); %Lymphocytes 10.6 % (21.0-51.0); %Monocytes 5.3 % (0.0-10.0); %Neutrophils 79.3 % (42.0-75.0); Hematocrit 34.2 % (42.0-52.0); Hemoglobin 10.8 g/dL (14.0-18.0); Mean Corpuscular HGB CONC 31.6 g/dL (32.0-36.0); Mean Corpuscular Hemoglobin 26.2 pg (27.0-31.0); Mean Platelet Volume 9.4 fL (7.4-10.4); Platelet Count 216 10x3/uL (130-400); RBC Distribution Width 14.8 % (11.5-14.5); Red Blood Cell (RBC) Count 4.12 mill/uL (4.70-6.10)
[2024-01-20 10:39] LABS: PTT 27.6 sec (22.9-36.1); Prothrombin Time 13.4 sec (12.0-14.7)
[2024-01-20 10:57] LABS: Globulin 3.8 g/dL (2.4-3.5)
[2024-01-20] MEDS ORDERED: diphenhydrAMINE 50 MG/ML VIAL ONE (11:00)
[2024-01-20] MEDS ORDERED: methylPREDNISolone Sod Succ/PF 125 MG/2 ML VIAL ONE (11:00)
[2024-01-20] MEDS ORDERED: Famotidine/PF 20 mg/2ml Vial ONE (11:00)
[2024-01-20 11:01] LABS: ALT (SGPT) 15 U/L (8-55); AST (SGOT) 18 U/L (5-34); Albumin 3.8 g/dL (3.4-4.8); Alkaline Phosphatase 56 U/L (40-110); Anion Gap 14 mmol/L (10-20); BUN (Urea Nitrogen) 26 mg/dL (8.4-25.7); Bilirubin, Total 0.5 mg/dL (0.2-1.2); Calc. Creatinine Clearance 0 mL/min (70-130); Calcium 9.4 mg/dL (7.8-10.44); Carbon Dioxide 28 mmol/L (23-31); Chloride 102 mmol/L (98-107); Estimated GFR 57; Glucose 69 mg/dL (80-115); Lipase 9 U/L (8-78); Potassium 4.6 mmol/L (3.5-5.1); Protein, Total 7.6 g/dL (5.8-8.1); Sodium 139 mmol/L (136-145)
[2024-01-20 11:35] LABS: Troponin I Less than 0.010 ng/mL (< 0.028)
[2024-01-20 14:19] LABS: Bacteria/HPF 2+ HPF (None Seen); Bilirubin Negative (Negative); Blood, Urine Negative (Negative); CAUTI Indications for Culture Fever or rigors; Clarity Clear (Clear); Glucose, Urine (Dipstick) Normal (Negative); Ketone, Urine Negative (Negative); Leukocyte 75 Leu/uL (Negative); Nitrite Negative (Negative); Protein, Urine (Dipstick) Negative (Neg-Trace); RBC/HPF None Seen HPF (0-3); Specific Gravity, Urine 1.029 (1.002-1.036); Squamous Epithelial None Seen HPF (0-3); Urobilinogen Normal mg/dL (Less than 2)
[2024-01-20 14:22] LABS: Urine Culture Reflex No No
[2024-01-20] MEDS ORDERED: Glucagon 1 MG/ML KIT IM PRN (14:27)
[2024-01-20] MEDS ORDERED: Ondansetron ODT 4 MG TAB PO PRN (14:27)
[2024-01-20] MEDS ORDERED: Acetaminophen 325 MG TAB PO PRN (14:27)
[2024-01-20] MEDS ORDERED: Dextrose 5% in Water 1,000 ML IV PRN (14:27)
[2024-01-20] MEDS ORDERED: Dextrose 50% Abboject 50 ML SYRINGE SLOW IVP PRN (14:27)
[2024-01-20] MEDS: Sodium Chloride 0.9% 1,000 ML IV SCH (16:58)
[2024-01-20] MEDS: METHadone HCl 10 MG TAB PO PRN ×2 (17:01→22:37)
[2024-01-20] MEDS: oxyCODONE/Acetaminophen 5 mg/325 mg Tablet PO PRN (17:04)
[2024-01-20] MEDS: Meropenem 1 GM in Sodium Chloride 0.9% 100 ML IVPB SCH (17:46)
[2024-01-20] MEDS: Vancomycin (BATCH) 2.5 GM in Premix 1 BAG IVPB SCH (17:46)
[2024-01-20] MEDS: Ampicillin/Sulbactam 1.5 GM in Sodium Chloride 0.9% 100 ML IVPB SCH (18:22)
[2024-01-20 18:43] VITALS: BMI 38.6
[2024-01-20] MEDS: Apixaban 5 MG TAB PO SCH (20:05)
[2024-01-20] MEDS: Famotidine 20 MG TAB PO SCH (20:18)
[2024-01-20] MEDS: Insulin Regular 300 UNITS/3 ML VIAL SC PRN (20:39)
[2024-01-20] MEDS: Gabapentin 300 MG CAP PO SCH (20:39)
[2024-01-21 06:53] LABS: #Basophils Less than 0.03 10x3/uL (0.0-0.2); %Basophils 0.2 % (0.0-1.0); %Eosinophils 0.4 % (0.0-10.0); %Lymphocytes 15.6 % (21.0-51.0); %Monocytes 5.2 % (0.0-10.0); Hematocrit 29.3 % (42.0-52.0); Hemoglobin 9.3 g/dL (14.0-18.0); Mean Corpuscular HGB CONC 31.7 g/dL (32.0-36.0); Mean Corpuscular Hemoglobin 25.9 pg (27.0-31.0); Mean Corpuscular Volume 81.6 fL (78.0-98.0); Mean Platelet Volume 9.8 fL (7.4-10.4); Platelet Count 216 10x3/uL (130-400); RBC Distribution Width 14.5 % (11.5-14.5); Red Blood Cell (RBC) Count 3.59 mill/uL (4.70-6.10)
[2024-01-21 07:31] LABS: Globulin 3.6 g/dL (2.4-3.5)
[2024-01-21 07:35] LABS: ALT (SGPT) 13 U/L (8-55); AST (SGOT) 12 U/L (5-34); Alkaline Phosphatase 44 U/L (40-110); Anion Gap 15 mmol/L (10-20); BUN (Urea Nitrogen) 25 mg/dL (8.4-25.7); Bilirubin, Total 0.3 mg/dL (0.2-1.2); Calc. Creatinine Clearance 101 mL/min (70-130); Calcium 8.7 mg/dL (7.8-10.44); Carbon Dioxide 21 mmol/L (23-31); Chloride 106 mmol/L (98-107); Estimated GFR 58; Glucose 214 mg/dL (80-115); Potassium 4.3 mmol/L (3.5-5.1); Protein, Total 6.6 g/dL (5.8-8.1); Sodium 138 mmol/L (136-145)
[2024-01-21] MEDS ORDERED: Non-Formulary Item 1 EACH (Omeprazole [Omeprazole] 40 MG Capsule.Dr) PO SCH (09:00)
[2024-01-21] MEDS ORDERED: Non-Formulary Item 1 EACH (Lactobacillus Rhamnosus Gg [Culturelle] 1 CAPSULE Capsule) PO SCH (09:00)
[2024-01-21] MEDS ORDERED: NALOXEGOL OXALATE 25 MG PO SCH (09:00)
[2024-01-21] MEDS ORDERED: Non-Formulary Item 1 EACH (Insulin Degludec [Tresiba Flextouch U-200] 200 UNIT/ML Insuln. SQ SCH (09:00)
[2024-01-21] MEDS: Naloxegol 12.5 MG TAB PER TUBE SCH (09:30)
[2024-01-21] MEDS: Non-Formulary Item 1 EACH (Ferrous Sulfate [Ferosul] 325 MG Tablet) PO SCH (09:30)
[2024-01-21] MEDS: Aspirin Chewable 81 MG TAB PO SCH ×2 (13:40→13:43)
[2024-01-21] MEDS: Floranex 1 GM Packet PO SCH ×2 (13:40→13:43)
[2024-01-21] MEDS: Cyanocobalamin (Vitamin B-12) 1,000 MCG TAB PO SCH ×2 (13:41→13:44)
[2024-01-21] MEDS: Insulin Glargine 30 UNITS/0.3 ML VIAL SC SCH ×2 (13:41→13:44)
[2024-01-21] MEDS: Citalopram 20 MG TAB PO SCH ×2 (13:41→13:44)
[2024-01-21] MEDS: Naloxegol 12.5 MG TAB PO SCH (13:41)
[2024-01-21] MEDS: Pantoprazole DR 40 MG TAB PO SCH (13:45)
[2024-01-21] MEDS: Fenofibrate Nanocrystallized 145 MG TAB PO SCH (20:33)
[2024-01-21] MEDS: METHadone HCl 10 MG TAB PO SCH (20:33)
[2024-01-22 05:33] LABS: #Basophils 0.04 10x3/uL (0.0-0.2); %Basophils 0.5 % (0.0-1.0); %Eosinophils 8.9 % (0.0-10.0); %Lymphocytes 30.1 % (21.0-51.0); %Monocytes 4.9 % (0.0-10.0); %Neutrophils 55.2 % (42.0-75.0); Hematocrit 30.1 % (42.0-52.0); Hemoglobin 9.4 g/dL (14.0-18.0); Mean Corpuscular HGB CONC 31.2 g/dL (32.0-36.0); Mean Corpuscular Hemoglobin 25.6 pg (27.0-31.0); Mean Platelet Volume 9.5 fL (7.4-10.4); Platelet Count 224 10x3/uL (130-400); RBC Distribution Width 14.7 % (11.5-14.5); Red Blood Cell (RBC) Count 3.67 mill/uL (4.70-6.10)
[2024-01-22 05:52] LABS: Anion Gap 14 mmol/L (10-20); BUN (Urea Nitrogen) 23 mg/dL (8.4-25.7); Calc. Creatinine Clearance 110 mL/min (70-130); Calcium 8.8 mg/dL (7.8-10.44); Carbon Dioxide 24 mmol/L (23-31); Chloride 107 mmol/L (98-107); Estimated GFR 64; Glucose 60 mg/dL (80-115); Potassium 4.3 mmol/L (3.5-5.1); Sodium 141 mmol/L (136-145)
[2024-01-22] MEDS: Naloxegol 12.5 MG TAB PO SCH (08:51)
[2024-01-22] MEDS: Ferrous Sulfate 325 MG TAB PO SCH (08:52)
[2024-01-22] MEDS: METHadone HCl 10 MG TAB PO SCH ×2 (08:52→15:21)
[2024-01-22 12:56] VITALS: BMI 38.6
[2024-01-22] MEDS: Pantoprazole DR 40 MG TAB PO SCH (19:51)
[2024-01-23 06:15] LABS: #Basophils 0.05 10x3/uL (0.0-0.2); %Basophils 0.7 % (0.0-1.0); %Eosinophils 9.8 % (0.0-10.0); %Lymphocytes 33.4 % (21.0-51.0); %Monocytes 6.8 % (0.0-10.0); %Neutrophils 48.6 % (42.0-75.0); Hematocrit 30.3 % (42.0-52.0); Hemoglobin 9.5 g/dL (14.0-18.0); Mean Corpuscular HGB CONC 31.4 g/dL (32.0-36.0); Mean Corpuscular Hemoglobin 26.8 pg (27.0-31.0); Mean Corpuscular Volume 85.6 fL (78.0-98.0); Mean Platelet Volume 9.3 fL (7.4-10.4); Platelet Count 237 10x3/uL (130-400); RBC Distribution Width 14.6 % (11.5-14.5); Red Blood Cell (RBC) Count 3.54 mill/uL (4.70-6.10)
[2024-01-23 06:58] LABS: Anion Gap 15 mmol/L (10-20); BUN (Urea Nitrogen) 24 mg/dL (8.4-25.7); Calc. Creatinine Clearance 87 mL/min (70-130); Calcium 8.6 mg/dL (7.8-10.44); Carbon Dioxide 26 mmol/L (23-31); Chloride 105 mmol/L (98-107); Estimated GFR 48; Glucose 107 mg/dL (80-115); Potassium 4.5 mmol/L (3.5-5.1); Sodium 141 mmol/L (136-145)
[2024-01-23] MEDS: Lactated Ringer's 1,000 ML IV SCH (08:49)
[2024-01-23 14:40] VITALS: BP 132/75; TEMP 98.1
== END 2024-01-23 15:20 | disposition home or self-care (01) | DRG 871 ==
LOC: ERS 09:51 → T4-A 13:59
PROVIDERS: ADMIT Internal Medicine; ATTEND Hospitalist
DX: A41.9 Sepsis, unspecified organism (principal); J69.0 Pneumonitis due to inhalation of food and vomit; N17.9 Acute kidney failure, unspecified; I48.91 Unspecified atrial fibrillation; Z91.041 Radiographic dye allergy status; Z88.2 Allergy status to sulfonamides; Z79.82 Long term (current) use of aspirin; Z79.899 Other long term (current) drug therapy; E11.22 Type 2 diabetes mellitus with diabetic chronic kidney disease; N18.30 Chronic kidney disease, stage 3 unspecified; G47.33 Obstructive sleep apnea (adult) (pediatric); Z90.49 Acquired absence of other specified parts of digestive tract; Z79.4 Long term (current) use of insulin
CPT/HCPCS: 36415; 36416; 71045; 74177; 80048; 80053; 81001; 83605; 83690; 84484; 85025; 85610; 85730; 86141; 87040; 93005; 94760; 97139; J0295; J1200; J1815; J2185; J2930; J3370; J3490; J7050; J7120; Q9967; S0028

== ENCOUNTER 2024-05-30 11:30 | Inpatient (IN) | payer MEDICARE, BC ==
[2024-05-30 13:05] LABS: Bacteria/HPF None Seen HPF (None Seen); Bilirubin Negative (Negative); Blood, Urine 1+ (Negative); CAUTI Indications for Culture Dysuria,urgency,freq; Clarity Clear (Clear); Glucose, Urine (Dipstick) Normal (Negative); Ketone, Urine Negative (Negative); Leukocyte 75 Leu/uL (Negative); Nitrite Negative (Negative); Protein, Urine (Dipstick) 30 mg/dL (Neg-Trace); Specific Gravity, Urine 1.019 (1.002-1.036); Squamous Epithelial 0-3 HPF (0-3); Urobilinogen Normal mg/dL (Less than 2)
[2024-05-30 13:07] LABS: Urine Culture Reflex No No
[2024-05-30 13:08] LABS: #Basophils Less than 0.03 10x3/uL (0.0-0.2); %Basophils 0.3 % (0.0-1.0); %Eosinophils 3.7 % (0.0-10.0); %Lymphocytes 12.3 % (21.0-51.0); %Monocytes 5.3 % (0.0-10.0); Hemoglobin 11.6 g/dL (14.0-18.0); Mean Corpuscular HGB CONC 29.7 g/dL (32.0-36.0); Mean Corpuscular Hemoglobin 25.7 pg (27.0-31.0); Mean Corpuscular Volume 86.3 fL (78.0-98.0); Mean Platelet Volume 9.1 fL (7.4-10.4); Platelet Count 148 10x3/uL (130-400); RBC Distribution Width 15.5 % (11.5-14.5); Red Blood Cell (RBC) Count 4.52 mill/uL (4.70-6.10)
[2024-05-30 13:27] LABS: ALT (SGPT) 19 U/L (8-55); AST (SGOT) 24 U/L (5-34); Albumin 3.2 g/dL (3.4-4.8); Alkaline Phosphatase 31 U/L (40-110); Anion Gap 14 mmol/L (10-20); BUN (Urea Nitrogen) 25 mg/dL (8.4-25.7); Bilirubin, Total 0.3 mg/dL (0.2-1.2); Calc. Creatinine Clearance 0 mL/min (70-130); Calcium 8.5 mg/dL (7.8-10.44); Carbon Dioxide 25 mmol/L (23-31); Chloride 104 mmol/L (98-107); Estimated GFR 46; Glucose 180 mg/dL (80-115); Magnesium 1.9 mg/dL (1.6-2.6); Potassium 4.9 mmol/L (3.5-5.1); Protein, Total 6.2 g/dL (5.8-8.1); Sodium 138 mmol/L (136-145)
[2024-05-30 14:04] LABS: SARS-CoV-2 E Target Negative; SARS-CoV-2 N2 Target Negative; SARS-CoV-2 NAA Rapid Test Not Detected (NotDetected); SARS-CoV-2 RdRP gene Negative
[2024-05-30] MEDS ORDERED: metroNIDAZOLE 250 MG TAB ONE (15:01)
[2024-05-30] MEDS ORDERED: Ondansetron PF 4 MG/2 ML Vial IVP PRN (16:02)
[2024-05-30] MEDS ORDERED: Loperamide HCl 2 MG CAP PO PRN (16:02)
[2024-05-30] MEDS ORDERED: Bisacodyl 5 MG TAB PO PRN (16:02)
[2024-05-30] MEDS ORDERED: DAPTOmycin 500 MG VIAL IVPB SCH (16:30)
[2024-05-30] MEDS ORDERED: Naloxegol 12.5 MG TAB PO PRN (17:02)
[2024-05-30 18:29] VITALS: BMI 40.0
[2024-05-30] MEDS: LevoFLOXacin 750 mg/D5W 150 ml Premix Bag IVPB SCH (20:06)
[2024-05-30] MEDS: Nystatin Powder 15 GM BOT TOP PRN (20:07)
[2024-05-30] MEDS: Sodium Chloride 0.9% 1,000 ML IV SCH (20:45)
[2024-05-30] MEDS: metroNIDAZOLE 500 MG TAB PO SCH (20:45)
[2024-05-30] MEDS: METHadone HCl 10 MG TAB PO SCH (20:46)
[2024-05-30] MEDS: Ferrous Sulfate 325 MG TAB PO SCH (20:46)
[2024-05-30] MEDS: Famotidine/PF 20 mg/2ml Vial SLOW IVP SCH (20:47)
[2024-05-30] MEDS: Fenofibrate Nanocrystallized 145 MG TAB PO SCH (20:47)
[2024-05-30] MEDS: Gabapentin 300 MG CAP PO SCH (20:47)
[2024-05-30] MEDS: DAPTOmycin 1,000 MG in Sodium Chloride 0.9% 50 ML IVPB SCH (22:19)
[2024-05-30] MEDS: Ketorolac Tromethamine 30 MG (1 mL) VIAL IVP PRN (22:23)
[2024-05-31] MEDS: Ascorbic Acid 500 mg Chewable Tablet PO SCH (09:06)
[2024-05-31] MEDS: Aspirin Chewable 81 MG TAB PO SCH (09:07)
[2024-05-31] MEDS: Citalopram 20 MG TAB PO SCH (09:07)
[2024-05-31] MEDS: Enoxaparin 40 MG (0.4 mL) SYRINGE SC SCH (09:08)
[2024-05-31] MEDS: Insulin Glargine 30 UNITS/0.3 ML VIAL SC SCH (09:09)
[2024-05-31] MEDS: Pantoprazole DR 40 MG TAB PO SCH (09:11)
[2024-05-31] MEDS: Metoprolol Tartrate 50 MG TAB PO SCH (09:11)
[2024-05-31] MEDS: Mecobalamin [B12 Active] 1,000 MCG Tab.Chew PO SCH (11:18)
[2024-05-31] MEDS: TIRZEPATIDE 5 MG/0.5 ML SC SCH (11:18)
[2024-05-31] MEDS: METHadone HCl 10 MG TAB PO SCH (11:42)
[2024-05-31] MEDS: oxyCODONE/Acetaminophen 5 mg/325 mg Tablet PO PRN (11:43)
[2024-05-31 12:57] LABS: Anion Gap 13 mmol/L (10-20); BUN (Urea Nitrogen) 28 mg/dL (8.4-25.7); Calc. Creatinine Clearance 89 mL/min (70-130); Calcium 8.5 mg/dL (7.8-10.44); Carbon Dioxide 22 mmol/L (23-31); Chloride 107 mmol/L (98-107); Estimated GFR 48; Glucose 92 mg/dL (80-115); Potassium 4.7 mmol/L (3.5-5.1); Sodium 137 mmol/L (136-145)
[2024-05-31 13:57] LABS: #Basophils Less than 0.03 10x3/uL (0.0-0.2); %Basophils 0.2 % (0.0-1.0); %Eosinophils 5.7 % (0.0-10.0); %Lymphocytes 13.8 % (21.0-51.0); %Monocytes 5.2 % (0.0-10.0); %Neutrophils 74.6 % (42.0-75.0); Hematocrit 29.5 % (42.0-52.0); Mean Corpuscular HGB CONC 30.5 g/dL (32.0-36.0); Mean Corpuscular Hemoglobin 25.6 pg (27.0-31.0); Mean Platelet Volume 9.2 fL (7.4-10.4); Platelet Count 173 10x3/uL (130-400); RBC Distribution Width 15.4 % (11.5-14.5); Red Blood Cell (RBC) Count 3.51 mill/uL (4.70-6.10)
[2024-05-31] MEDS ORDERED: Lorazepam 2 MG/ML VIAL SLOW IVP SCH (15:15)
[2024-05-31] MEDS: Lorazepam 2 MG/ML VIAL SLOW IVP PRN (15:56)
[2024-05-31] MEDS: oxyCODONE/Acetaminophen 5 mg/325 mg Tablet PO SCH (19:03)
[2024-05-31 19:55] LABS: CRP,High Sensitivity (Inhouse) 5.9 mg/dL (< or = 0.5)
[2024-05-31] MEDS: Vancomycin (BATCH) 2.5 GM in Premix 1 BAG IVPB SCH (22:13)
[2024-05-31] MEDS: Vancomycin 1 GM in Premix 1 BAG IVPB SCH (22:35)
[2024-06-01] MEDS: Acetaminophen 325 MG TAB PO SCH (01:12)
[2024-06-01 02:12] LABS: #Basophils 0.03 10x3/uL (0.0-0.2); %Basophils 0.3 % (0.0-1.0); %Eosinophils 0.5 % (0.0-10.0); %Lymphocytes 10.7 % (21.0-51.0); %Monocytes 4.1 % (0.0-10.0); %Neutrophils 83.9 % (42.0-75.0); Hematocrit 28.3 % (42.0-52.0); Hemoglobin 8.5 g/dL (14.0-18.0); Mean Corpuscular Hemoglobin 25.8 pg (27.0-31.0); Mean Platelet Volume 8.9 fL (7.4-10.4); Platelet Count 172 10x3/uL (130-400); RBC Distribution Width 15.3 % (11.5-14.5); Red Blood Cell (RBC) Count 3.29 mill/uL (4.70-6.10)
[2024-06-01 02:28] LABS: Anion Gap 15 mmol/L (10-20); BUN (Urea Nitrogen) 30 mg/dL (8.4-25.7); Calc. Creatinine Clearance 84 mL/min (70-130); Calcium 8.2 mg/dL (7.8-10.44); Carbon Dioxide 23 mmol/L (23-31); Chloride 105 mmol/L (98-107); Estimated GFR 45; Glucose 164 mg/dL (80-115); Potassium 4.7 mmol/L (3.5-5.1); Sodium 138 mmol/L (136-145)
[2024-06-01 03:28] LABS: Vancomycin, Random 27.8 ug/mL (See Comment)
[2024-06-01] MEDS: Vancomycin (BATCH) 1.5 GM in Premix 1 BAG IVPB SCH (08:24)
[2024-06-01] MEDS: Apixaban 5 MG TAB PO SCH ×2 (12:06→20:36)
[2024-06-01 15:18] VITALS: BMI 40.0
[2024-06-01] MEDS: traMADol HCl 50 MG TAB PO PRN (18:16)
[2024-06-02] MEDS: Mag-Al 1200 mg/1200 mg/30 ML UDCUP PO PRN (14:06)
[2024-06-02] MEDS: Pantoprazole DR 40 MG TAB PO SCH (20:15)
[2024-06-02] MEDS: Melatonin 3 MG TAB PO PRN (22:14)
[2024-06-02] MEDS: Fluticasone Propionate Nasal Spray 16 gm Bottle NASAL SCH (22:16)
[2024-06-02] MEDS: Acetaminophen 325 MG TAB PO PRN (23:03)
[2024-06-03 04:47] LABS: Vancomycin, Random 18.1 ug/mL (See Comment)
[2024-06-03] MEDS: Fluticasone Propionate Nasal Spray 16 gm Bottle NASAL SCH (09:58)
[2024-06-03] MEDS: hydrALAZINE 20 MG/ML VIAL SLOW IVP PRN (17:13)
[2024-06-03] MEDS: Metoprolol Tartrate 50 MG TAB PO SCH (21:44)
[2024-06-04 07:28] LABS: #Basophils 0.03 10x3/uL (0.0-0.2); %Basophils 0.5 % (0.0-1.0); %Eosinophils 4.8 % (0.0-10.0); %Lymphocytes 21.2 % (21.0-51.0); %Monocytes 8.5 % (0.0-10.0); %Neutrophils 64.3 % (42.0-75.0); Hemoglobin 7.8 g/dL (14.0-18.0); Mean Corpuscular Hemoglobin 25.3 pg (27.0-31.0); Mean Corpuscular Volume 84.4 fL (78.0-98.0); Mean Platelet Volume 8.9 fL (7.4-10.4); Platelet Count 199 10x3/uL (130-400); RBC Distribution Width 15.5 % (11.5-14.5); Red Blood Cell (RBC) Count 3.08 mill/uL (4.70-6.10)
[2024-06-04 07:58] LABS: Anion Gap 11 mmol/L (10-20); BUN (Urea Nitrogen) 19 mg/dL (8.4-25.7); Calc. Creatinine Clearance 108 mL/min (70-130); Calcium 8.6 mg/dL (7.8-10.44); Carbon Dioxide 25 mmol/L (23-31); Chloride 106 mmol/L (98-107); Estimated GFR 60; Glucose 74 mg/dL (80-115); Potassium 4.4 mmol/L (3.5-5.1); Sodium 138 mmol/L (136-145)
[2024-06-04 14:18] VITALS: BP 153/80; TEMP 98.1
== END 2024-06-04 13:40 | DRG 300 ==
LOC: ERS 11:30 → OBSVTOIN 16:07 → T4-A 16:07
PROVIDERS: ADMIT Family Medicine; ATTEND Hospitalist
DX: I82.622 Acute embolism and thrombosis of deep veins of left upper extremity (principal); G72.0 Drug-induced myopathy; M86.8X7 Other osteomyelitis, ankle and foot; N39.0 Urinary tract infection, site not specified; N17.9 Acute kidney failure, unspecified; E11.69 Type 2 diabetes mellitus with other specified complication; I80.9 Phlebitis and thrombophlebitis of unspecified site; G89.29 Other chronic pain; C61 Malignant neoplasm of prostate; N18.30 Chronic kidney disease, stage 3 unspecified; E11.22 Type 2 diabetes mellitus with diabetic chronic kidney disease; D63.1 Anemia in chronic kidney disease; G47.33 Obstructive sleep apnea (adult) (pediatric); F44.4 Conversion disorder with motor symptom or deficit; I48.0 Paroxysmal atrial fibrillation; E11.40 Type 2 diabetes mellitus with diabetic neuropathy, unspecified; N13.70 Vesicoureteral-reflux, unspecified; Z88.2 Allergy status to sulfonamides; Z88.8 Allergy status to other drugs, medicaments and biological substances; Z79.82 Long term (current) use of aspirin; Z79.899 Other long term (current) drug therapy; Z79.4 Long term (current) use of insulin; Z79.890 Hormone replacement therapy; Z98.890 Other specified postprocedural states; Z90.49 Acquired absence of other specified parts of digestive tract; Z90.79 Acquired absence of other genital organ(s); Z79.2 Long term (current) use of antibiotics
CPT/HCPCS: 36415; 36416; 71045; 72141; 80048; 80053; 80202; 81001; 82550; 82565; 83605; 83735; 85025; 85379; 86141; 87040; 87086; 87633; 93005; 93010; 97139; J0360; J0878; J1650; J1815; J1885; J1956; J2060; J3370; J3490; J7030; U0002

== ENCOUNTER 2024-06-16 13:35 | Emergency (ER) | payer MEDICARE, BC ==
[2024-06-16 14:45] LABS: #Basophils 0.03 10x3/uL (0.0-0.2); %Basophils 0.4 % (0.0-1.0); %Eosinophils 6.6 % (0.0-10.0); %Lymphocytes 27.7 % (21.0-51.0); %Monocytes 5.7 % (0.0-10.0); %Neutrophils 58.5 % (42.0-75.0); Hematocrit 32.4 % (42.0-52.0); Hemoglobin 10.1 g/dL (14.0-18.0); Mean Corpuscular HGB CONC 31.2 g/dL (32.0-36.0); Mean Corpuscular Volume 83.5 fL (78.0-98.0); Mean Platelet Volume 9.2 fL (7.4-10.4); Platelet Count 238 10x3/uL (130-400); RBC Distribution Width 15.7 % (11.5-14.5); Red Blood Cell (RBC) Count 3.88 mill/uL (4.70-6.10)
[2024-06-16 15:11] LABS: ALT (SGPT) 13 U/L (8-55); AST (SGOT) 20 U/L (5-34); Albumin 3.6 g/dL (3.4-4.8); Alkaline Phosphatase 35 U/L (40-110); Anion Gap 10 mmol/L (10-20); BUN (Urea Nitrogen) 20 mg/dL (8.4-25.7); Bilirubin, Total 0.3 mg/dL (0.2-1.2); Calc. Creatinine Clearance 0 mL/min (70-130); Calcium 9.2 mg/dL (7.8-10.44); Carbon Dioxide 29 mmol/L (23-31); Chloride 104 mmol/L (98-107); Estimated GFR 50; Glucose 97 mg/dL (80-115); Potassium 4.5 mmol/L (3.5-5.1); Protein, Total 6.6 g/dL (5.8-8.1); Sodium 138 mmol/L (136-145)
== END 2024-06-16 17:18 | disposition home or self-care (01) ==
LOC: ERS 13:35
DX: I82.622 Acute embolism and thrombosis of deep veins of left upper extremity (principal); E11.9 Type 2 diabetes mellitus without complications; I10 Essential (primary) hypertension; Z79.01 Long term (current) use of anticoagulants; Z79.82 Long term (current) use of aspirin; Z79.4 Long term (current) use of insulin; Z79.899 Other long term (current) drug therapy
CPT/HCPCS: 36415; 71045; 80053; 85025

== ENCOUNTER 2024-06-24 12:07 | Inpatient (IN) | payer MEDICARE, BC ==
[2024-06-24 13:33] LABS: #Basophils 0.03 10x3/uL (0.0-0.2); %Basophils 0.4 % (0.0-1.0); %Eosinophils 3.9 % (0.0-10.0); %Lymphocytes 15.9 % (21.0-51.0); %Monocytes 5.4 % (0.0-10.0); %Neutrophils 73.7 % (42.0-75.0); Hematocrit 34.2 % (42.0-52.0); Hemoglobin 10.5 g/dL (14.0-18.0); Mean Corpuscular HGB CONC 30.7 g/dL (32.0-36.0); Mean Corpuscular Hemoglobin 25.6 pg (27.0-31.0); Mean Corpuscular Volume 83.4 fL (78.0-98.0); Mean Platelet Volume 9.3 fL (7.4-10.4); Platelet Count 228 10x3/uL (130-400); RBC Distribution Width 16.5 % (11.5-14.5)
[2024-06-24 13:46] LABS: INR-International Normal Ratio 1.3; PTT 29.8 sec (22.9-36.1); Prothrombin Time 16.1 sec (12.0-14.7)
[2024-06-24 13:52] LABS: ALT (SGPT) 10 U/L (8-55); AST (SGOT) 16 U/L (5-34); Albumin 3.5 g/dL (3.4-4.8); Alkaline Phosphatase 32 U/L (40-110); Anion Gap 12 mmol/L (10-20); BUN (Urea Nitrogen) 20 mg/dL (8.4-25.7); Bilirubin, Total 0.4 mg/dL (0.2-1.2); CK (CPK) 142 U/L (30-200); Calc. Creatinine Clearance 0 mL/min (70-130); Calcium 9.2 mg/dL (7.8-10.44); Carbon Dioxide 26 mmol/L (23-31); Chloride 105 mmol/L (98-107); Estimated GFR 60; Globulin 3.3 g/dL (2.4-3.5); Glucose 97 mg/dL (80-115); Lipase 10 U/L (8-78); Magnesium 2.1 mg/dL (1.6-2.6); Potassium 4.9 mmol/L (3.5-5.1); Protein, Total 6.8 g/dL (5.8-8.1); Sodium 138 mmol/L (136-145)
[2024-06-24 14:07] LABS: Bacteria/HPF 4+ HPF (None Seen); Bilirubin Negative (Negative); Blood, Urine Negative (Negative); CAUTI Indications for Culture Alt mental st,lethar; Clarity Clear (Clear); Glucose, Urine (Dipstick) Normal (Negative); Ketone, Urine Negative (Negative); Leukocyte 25 Leu/uL (Negative); Nitrite Negative (Negative); Protein, Urine (Dipstick) 10 mg/dL (Neg-Trace); RBC/HPF 0-3 HPF (0-3); Specific Gravity, Urine 1.008 (1.002-1.036); Squamous Epithelial None Seen HPF (0-3); Urobilinogen Normal mg/dL (Less than 2); pH, Urine 8.5 (5.0-9.0)
[2024-06-24 14:10] LABS: Urine Culture Reflex Yes Yes
[2024-06-24] MEDS ORDERED: Gabapentin 300 MG CAP ONE (15:04)
[2024-06-24] MEDS ORDERED: Furosemide 40 MG (4 mL) VIAL ONE (16:05)
[2024-06-24] MEDS ORDERED: Dextrose 50% Abboject 50 ML SYRINGE SLOW IVP PRN (16:41)
[2024-06-24] MEDS ORDERED: Dextrose 5% in Water 1,000 ML IV PRN (16:41)
[2024-06-24] MEDS ORDERED: Ondansetron PF 4 MG/2 ML Vial IVP PRN (16:41)
[2024-06-24] MEDS ORDERED: Glucagon 1 MG/ML KIT IM PRN (16:41)
[2024-06-24 18:20] LABS: Magnesium 2.2 mg/dL (1.6-2.6)
[2024-06-24 20:07] VITALS: BMI 39.0
[2024-06-24] MEDS: oxyCODONE 5 MG TAB PO SCH (20:21)
[2024-06-24] MEDS: METHadone HCl 10 MG TAB PO SCH (20:21)
[2024-06-24] MEDS: Famotidine 20 MG TAB PO SCH (21:35)
[2024-06-24] MEDS: Apixaban 5 MG TAB PO SCH (21:35)
[2024-06-25] MEDS: METHadone HCl 10 MG TAB PO SCH ×3 (00:14→12:19)
[2024-06-25] MEDS: Gabapentin 300 MG CAP PO SCH ×2 (00:15→09:21)
[2024-06-25 04:56] LABS: Anion Gap 12 mmol/L (10-20); BUN (Urea Nitrogen) 20 mg/dL (8.4-25.7); Calc. Creatinine Clearance 93 mL/min (70-130); Calcium 9.2 mg/dL (7.8-10.44); Carbon Dioxide 30 mmol/L (23-31); Chloride 101 mmol/L (98-107); Estimated GFR 52; Glucose 75 mg/dL (80-115); Potassium 4.2 mmol/L (3.5-5.1); Sodium 139 mmol/L (136-145)
[2024-06-25] MEDS: Furosemide 20 MG (2 mL) VIAL SLOW IVP SCH (05:52)
[2024-06-25] MEDS ORDERED: NALOXEGOL OXALATE 25 MG PO PRN (08:43)
[2024-06-25] MEDS ORDERED: Melatonin 3 MG TAB PO PRN (08:43)
[2024-06-25] MEDS ORDERED: Loperamide HCl 2 MG CAP PO PRN (08:43)
[2024-06-25] MEDS ORDERED: Naloxegol 12.5 MG TAB PO PRN (08:52)
[2024-06-25] MEDS ORDERED: Non-Formulary Item 1 EACH (Mecobalamin [B12 Active] 1,000 MCG Tab.Chew) PO SCH (09:00)
[2024-06-25] MEDS ORDERED: Gabapentin 300 MG CAP PO SCH (09:00)
[2024-06-25] MEDS ORDERED: METHadone HCl 10 MG TAB PO SCH (09:00)
[2024-06-25] MEDS ORDERED: Non-Formulary Item 1 EACH (Ferrous Sulfate [Ferosul] 325 MG Tablet) PO SCH (09:00)
[2024-06-25] MEDS: Metoprolol Tartrate 50 MG TAB PO SCH (09:21)
[2024-06-25] MEDS: Aspirin 81 mg Enteric Coated Tablet PO SCH (09:21)
[2024-06-25] MEDS: Atorvastatin Calcium 40 MG TAB PO SCH (09:21)
[2024-06-25] MEDS: Fenofibrate Nanocrystallized 145 MG TAB PO SCH (09:21)
[2024-06-25] MEDS: Ascorbic Acid 500 mg Chewable Tablet PO SCH (09:21)
[2024-06-25] MEDS: Ferrous Sulfate 325 MG TAB PO SCH (09:21)
[2024-06-25] MEDS: metroNIDAZOLE 500 MG TAB PO SCH (09:21)
[2024-06-25] MEDS: Citalopram 20 MG TAB PO SCH (09:21)
[2024-06-25] MEDS: Cyanocobalamin (Vitamin B-12) 1,000 MCG TAB PO SCH (09:21)
[2024-06-25] MEDS: Apixaban 5 MG TAB PO SCH (09:22)
[2024-06-25] MEDS: Fluticasone Propionate Nasal Spray 16 gm Bottle NASAL SCH (09:28)
[2024-06-25] MEDS ORDERED: Magnevist 469MG/ML 20 ML VIAL ONE (11:27)
[2024-06-25] MEDS: oxyCODONE/Acetaminophen 5 mg/325 mg Tablet PO PRN (14:48)
[2024-06-25] MEDS: Piperacillin/Tazobactam 3.375 GM in Sodium Chloride 0.9% 100 ML IVPB SCH ×2 (17:49→21:59)
[2024-06-25] MEDS ORDERED: Piperacillin/Tazobactam 3.375 GM in Sodium Chloride 0.9% 100 ML IVPB SCH (18:00)
[2024-06-26] MEDS ORDERED: Bupivacaine PF 0.5% 30 ML VIAL ONE (09:34)
[2024-06-26] MEDS ORDERED: Ondansetron PF 4 MG/2 ML Vial ONE (09:40)
[2024-06-26] MEDS ORDERED: PROPOFOL 20 ML ONE (09:40)
[2024-06-26] MEDS ORDERED: Lidocaine 1% PF 5 ML VIAL ONE (09:40)
[2024-06-26] MEDS ORDERED: Midazolam HCl 2 mg/2 ml Vial ONE (09:40)
[2024-06-26] MEDS ORDERED: fentaNYL PF 100 MCG/2 ML SYRINGE ONE (09:40)
[2024-06-26] MEDS ORDERED: Lidocaine 2% 6 ML (Jelly) SYR ONE (09:41)
[2024-06-26] MEDS ORDERED: PHENYLEPHRINE-NS 100 MCG/ML 10 ML SYRINGE ONE (10:03)
[2024-06-26 12:05] LABS: Anion Gap 16 mmol/L (10-20); BUN (Urea Nitrogen) 27 mg/dL (8.4-25.7); Calc. Creatinine Clearance 81 mL/min (70-130); Calcium 9.5 mg/dL (7.8-10.44); Carbon Dioxide 24 mmol/L (23-31); Chloride 99 mmol/L (98-107); Estimated GFR 46; Glucose 129 mg/dL (80-115); Potassium 4.4 mmol/L (3.5-5.1); Sodium 135 mmol/L (136-145)
[2024-06-26] MEDS: Apixaban 5 MG TAB PO SCH (21:00)
[2024-06-26] MEDS: Sodium Chloride 0.9% 100 ML ONE (22:17)
[2024-06-27 05:11] LABS: Anion Gap 14 mmol/L (10-20); BUN (Urea Nitrogen) 28 mg/dL (8.4-25.7); Calc. Creatinine Clearance 77 mL/min (70-130); Calcium 8.8 mg/dL (7.8-10.44); Carbon Dioxide 28 mmol/L (23-31); Chloride 101 mmol/L (98-107); Estimated GFR 43; Glucose 142 mg/dL (80-115); Potassium 4.8 mmol/L (3.5-5.1); Sodium 138 mmol/L (136-145)
[2024-06-27 08:14] VITALS: BMI 37.6
[2024-06-27] MEDS: oxyCODONE/Acetaminophen 5 mg/325 mg Tablet PO SCH (11:59)
[2024-06-27] MEDS ORDERED: Non-Formulary Item 1 EACH (Oxycodone Hcl/Acetaminophen [Oxycodone-Acetaminophen 10-325] 1 PO SCH (13:00)
[2024-06-27] MEDS: Morphine 4 MG/ML VIAL SLOW IVP PRN (15:47)
[2024-06-27] MEDS: Albumin 25% 25 GM (100 mL) BOT IVPB SCH (15:48)
[2024-06-27] MEDS: Acetaminophen 325 MG TAB PO PRN (22:20)
[2024-06-28] MEDS: Pantoprazole DR 40 MG TAB PO SCH (11:40)
[2024-06-28] MEDS: Mag-Al 1200 mg/1200 mg/30 ML UDCUP PO PRN (11:40)
[2024-06-28] MEDS: Insulin Lispro 100 UNIT/ML 10 ML VIAL SC PRN (16:55)
[2024-06-29 06:31] LABS: #Basophils Less than 0.03 10x3/uL (0.0-0.2); %Basophils 0.4 % (0.0-1.0); %Eosinophils 8.7 % (0.0-10.0); %Lymphocytes 33.4 % (21.0-51.0); %Monocytes 7.4 % (0.0-10.0); Hematocrit 31.6 % (42.0-52.0); Hemoglobin 9.6 g/dL (14.0-18.0); Mean Corpuscular HGB CONC 30.4 g/dL (32.0-36.0); Mean Corpuscular Hemoglobin 25.8 pg (27.0-31.0); Mean Corpuscular Volume 84.9 fL (78.0-98.0); Mean Platelet Volume 9.3 fL (7.4-10.4); Platelet Count 224 10x3/uL (130-400); RBC Distribution Width 15.6 % (11.5-14.5); Red Blood Cell (RBC) Count 3.72 mill/uL (4.70-6.10)
[2024-06-29 06:47] LABS: Anion Gap 9 mmol/L (10-20); BUN (Urea Nitrogen) 23 mg/dL (8.4-25.7); Calc. Creatinine Clearance 100 mL/min (70-130); Calcium 9.1 mg/dL (7.8-10.44); Carbon Dioxide 31 mmol/L (23-31); Chloride 104 mmol/L (98-107); Estimated GFR 53; Glucose 141 mg/dL (80-115); Potassium 4.4 mmol/L (3.5-5.1); Sodium 140 mmol/L (136-145)
[2024-06-29] MEDS: Pantoprazole DR 40 MG TAB PO SCH (08:12)
[2024-06-30 08:11] VITALS: TEMP 98.3
[2024-06-30 18:26] VITALS: BP 158/71
== END 2024-06-30 20:00 | DRG 240 ==
LOC: ERS 12:07 → 2NO 16:27 → T4-B 06-26 20:51
PROVIDERS: ADMIT Internal Medicine; ATTEND Internal Medicine
PROC: 0Y6M0ZC Detachment at Right Foot, Partial 3rd Ray, Open Approach (ICD-10-PCS; principal; 2024-06-26)
DX: E11.52 Type 2 diabetes mellitus with diabetic peripheral angiopathy with gangrene (principal); I13.0 Hypertensive heart and chronic kidney disease with heart failure and stage 1 through stage 4 chronic kidney disease, or unspecified chronic kidney disease; M86.9 Osteomyelitis, unspecified; N17.9 Acute kidney failure, unspecified; I50.32 Chronic diastolic (congestive) heart failure; E11.69 Type 2 diabetes mellitus with other specified complication; Z91.041 Radiographic dye allergy status; Z88.2 Allergy status to sulfonamides; N18.30 Chronic kidney disease, stage 3 unspecified; I48.91 Unspecified atrial fibrillation; Z90.49 Acquired absence of other specified parts of digestive tract; Z98.890 Other specified postprocedural states; G89.4 Chronic pain syndrome; E11.40 Type 2 diabetes mellitus with diabetic neuropathy, unspecified; E11.22 Type 2 diabetes mellitus with diabetic chronic kidney disease
CPT/HCPCS: 36415; 36416; 70450; 71045; 74176; 80048; 80053; 81001; 82140; 82550; 83605; 83690; 83735; 83880; 84443; 85025; 85610; 85730; 86140; 86141; 87040; 87077; 87086; 87186; 87428; 88305; 93005; 93306; 94760; 96374; 97139; J0665; J1815; J1940; J2250; J2272; J2405; J2543; J2704; P9047

== ENCOUNTER 2025-04-24 12:45 | Outpatient (CLI) | payer MEDICARE, BC ==
[2025-04-24 13:46] LABS: #Basophils 0.03 10x3/uL (0.0-0.2); #Eosinophils 0.61 10x3/uL (0.0-0.7); #Monocytes 0.28 10x3/uL (0.11-0.59); #Neutrophils 3.26 10x3/uL (1.40-6.50); %Basophils 0.5 % (0.0-1.0); %Eosinophils 10.1 % (0.0-10.0); %Lymphocytes 29.6 % (21.0-51.0); %Monocytes 4.6 % (0.0-10.0); %Neutrophils 53.9 % (42.0-75.0); Hematocrit 30.8 % (42.0-52.0); Hemoglobin 9.7 g/dL (14.0-18.0); Mean Corpuscular Hemoglobin 27.2 pg (27.0-31.0); Mean Corpuscular Volume 86.5 fL (78.0-98.0); Platelet Count 230 10x3/uL (130-400); Red Blood Cell (RBC) Count 3.56 mill/uL (4.70-6.10); White Blood Cell (WBC) Count 6.05 10x3/uL (4.8-10.8)
[2025-04-24 14:05] LABS: Anion Gap 12 mmol/L (10-20); BUN (Urea Nitrogen) 21 mg/dL (8.4-25.7); Calc. Creatinine Clearance 0 mL/min (70-130); Calcium 8.2 mg/dL (7.8-10.44); Carbon Dioxide 29 mmol/L (23-31); Chloride 103 mmol/L (98-107); Glucose 170 mg/dL (80-115); INR-International Normal Ratio 1.1; PTT 29.0 sec (22.9-36.1); Potassium 4.8 mmol/L (3.5-5.1); Prothrombin Time 14.3 sec (12.0-14.7); Sodium 139 mmol/L (136-145)
== END 2025-04-24 12:46 | disposition home or self-care (01) ==
LOC: LABBT 12:45
PROVIDERS: ATTEND Urology
DX: Z01.812 Encounter for preprocedural laboratory examination (principal); Z51.81 Encounter for therapeutic drug level monitoring; R31.0 Gross hematuria; N99.111 Postprocedural bulbous urethral stricture, male; I73.9 Peripheral vascular disease, unspecified; Z79.899 Other long term (current) drug therapy
CPT/HCPCS: 80048; 85025; 85610; 85730

== ENCOUNTER 2025-05-23 15:37 | Inpatient (IN) | payer MEDICARE, BC ==
[2025-05-23 17:46] LABS: Glucose, Urine (Dipstick) Negative (Negative); Leukocyte Moderate (Negative); Protein, Urine (Dipstick) 100 mg/dL (Neg-Trace); Specific Gravity, Urine 1.010 (1.005-1.030)
[2025-05-23 17:50] LABS: ALT (SGPT) 12 U/L (Less than 45); AST (SGOT) 23 U/L (11-34); Albumin 4.0 g/dL (3.1-4.5); Alkaline Phosphatase 42 U/L (40-110); Anion Gap 17 mmol/L (10-20); BUN (Urea Nitrogen) 23 mg/dL (8.4-25.7); Bilirubin, Total 0.4 mg/dL (0.3-1.2); Calc. Creatinine Clearance 0 mL/min (70-130); Calcium 10.2 mg/dL (7.8-10.44); Carbon Dioxide 26 mmol/L (23-31); Chloride 99 mmol/L (98-107); Globulin 3.0 g/dL (2.4-3.5); Glucose 201 mg/dL (80-115); Potassium 4.9 mmol/L (3.5-5.1); Sodium 137 mmol/L (136-145)
[2025-05-23 17:52] LABS: #Basophils 0.07 10x3/uL (0.0-0.2); #Eosinophils 0.68 10x3/uL (0.0-0.7); #Monocytes 0.53 10x3/uL (0.11-0.59); #Neutrophils 5.29 10x3/uL (1.40-6.50); %Basophils 0.8 % (0.0-1.0); %Eosinophils 7.8 % (0.0-10.0); %Lymphocytes 24.1 % (21.0-51.0); %Monocytes 6.1 % (0.0-10.0); %Neutrophils 60.4 % (42.0-75.0); Hematocrit 34.5 % (42.0-52.0); Hemoglobin 10.7 g/dL (14.0-18.0); Mean Corpuscular Hemoglobin 27.0 pg (27.0-31.0); Mean Corpuscular Volume 87.1 fL (78.0-98.0); Platelet Count 217 10x3/uL (130-400); Red Blood Cell (RBC) Count 3.96 mill/uL (4.70-6.10); White Blood Cell (WBC) Count 8.75 10x3/uL (4.8-10.8)
[2025-05-23 18:21] LABS: CAUTI Indications for Culture Dysuria,urgency,freq; RBC/HPF Greater than 50 HPF (0-3)
[2025-05-23 18:22] LABS: Bacteria/HPF 2+ HPF (None Seen)
[2025-05-23 18:23] LABS: Urine Culture Reflex No No
[2025-05-23] MEDS ORDERED: cefTRIAXone (ROCEPHIN) 2 GM VIAL ONE (20:06)
[2025-05-23] MEDS ORDERED: Acetaminophen 325 MG TAB PO PRN (22:50)
[2025-05-23] MEDS ORDERED: Glucagon 1 MG/ML KIT IM PRN (22:50)
[2025-05-23] MEDS ORDERED: Ondansetron PF 4 MG/2 ML Vial IVP PRN (22:50)
[2025-05-23] MEDS ORDERED: Dextrose 50% Abboject 50 ML SYRINGE SLOW IVP PRN (22:50)
[2025-05-23 23:48] VITALS: BMI 39.6
[2025-05-24 05:38] LABS: #Basophils 0.05 10x3/uL (0.0-0.2); #Eosinophils 0.58 10x3/uL (0.0-0.7); #Monocytes 0.45 10x3/uL (0.11-0.59); #Neutrophils 3.02 10x3/uL (1.40-6.50); %Basophils 0.8 % (0.0-1.0); %Eosinophils 8.9 % (0.0-10.0); %Lymphocytes 36.4 % (21.0-51.0); %Monocytes 6.9 % (0.0-10.0); %Neutrophils 46.4 % (42.0-75.0); Hematocrit 31.5 % (42.0-52.0); Hemoglobin 9.5 g/dL (14.0-18.0); Mean Corpuscular Hemoglobin 27.0 pg (27.0-31.0); Mean Corpuscular Volume 89.5 fL (78.0-98.0); Platelet Count 183 10x3/uL (130-400); Red Blood Cell (RBC) Count 3.52 mill/uL (4.70-6.10); White Blood Cell (WBC) Count 6.51 10x3/uL (4.8-10.8)
[2025-05-24 05:44] LABS: Anion Gap 16 mmol/L (10-20); BUN (Urea Nitrogen) 27 mg/dL (8.4-25.7); Calc. Creatinine Clearance 81 mL/min (70-130); Calcium 9.1 mg/dL (7.8-10.44); Carbon Dioxide 28 mmol/L (23-31); Chloride 104 mmol/L (98-107); Glucose 161 mg/dL (80-115); Potassium 4.5 mmol/L (3.5-5.1); Sodium 143 mmol/L (136-145)
[2025-05-24] MEDS: Pantoprazole 40 MG DR.TAB PO SCH (08:57)
[2025-05-24] MEDS: Citalopram 20 MG TAB PO SCH (08:57)
[2025-05-24] MEDS: Ferrous Sulfate 325 MG TAB PO SCH (08:57)
[2025-05-24] MEDS: Mirabegron ER 25 MG ER.TAB PO SCH (08:57)
[2025-05-24] MEDS: Metoprolol Succinate XL 50 MG ER.TAB PO SCH (08:58)
[2025-05-24] MEDS: Floranex 1 GM Packet PO SCH (08:58)
[2025-05-24] MEDS ORDERED: Apixaban 5 MG TAB PO SCH (09:00)
[2025-05-24] MEDS ORDERED: Enoxaparin 40 MG (0.4 mL) SYRINGE SC SCH (09:00)
[2025-05-24] MEDS: oxyCODONE/Acetaminophen 5 mg/325 mg Tablet PO SCH (12:20)
[2025-05-24] MEDS: oxyCODONE 5 MG TAB PO SCH (12:21)
[2025-05-24] MEDS: Gabapentin 300 MG CAP PO SCH (14:28)
[2025-05-25] MEDS: Naloxegol 12.5 MG TAB PO PRN (06:15)
[2025-05-25 14:46] VITALS: BMI 39.6
[2025-05-25] MEDS: Insulin Glargine 30 UNITS/0.3 ML VIAL SC SCH (21:00)
[2025-05-26 05:08] LABS: #Basophils 0.03 10x3/uL (0.0-0.2); #Eosinophils 0.50 10x3/uL (0.0-0.7); #Monocytes 0.41 10x3/uL (0.11-0.59); #Neutrophils 3.73 10x3/uL (1.40-6.50); %Basophils 0.5 % (0.0-1.0); %Eosinophils 7.8 % (0.0-10.0); %Lymphocytes 26.6 % (21.0-51.0); %Monocytes 6.4 % (0.0-10.0); %Neutrophils 58.1 % (42.0-75.0); Hematocrit 31.6 % (42.0-52.0); Hemoglobin 9.9 g/dL (14.0-18.0); Mean Corpuscular Hemoglobin 26.9 pg (27.0-31.0); Mean Corpuscular Volume 85.9 fL (78.0-98.0); Platelet Count 189 10x3/uL (130-400); Red Blood Cell (RBC) Count 3.68 mill/uL (4.70-6.10); White Blood Cell (WBC) Count 6.42 10x3/uL (4.8-10.8)
[2025-05-26 05:21] LABS: Anion Gap 14 mmol/L (10-20); BUN (Urea Nitrogen) 23 mg/dL (8.4-25.7); Calc. Creatinine Clearance 101 mL/min (70-130); Calcium 8.8 mg/dL (7.8-10.44); Carbon Dioxide 26 mmol/L (23-31); Chloride 104 mmol/L (98-107); Glucose 188 mg/dL (80-115); Potassium 4.6 mmol/L (3.5-5.1); Sodium 139 mmol/L (136-145)
[2025-05-26] MEDS: Cyanocobalamin (Vitamin B-12) 1,000 MCG TAB PO SCH (09:22)
[2025-05-26 12:31] VITALS: BP 118/73; TEMP 98.3
== END 2025-05-26 16:38 | disposition home or self-care (01) | DRG 700 ==
LOC: ERS 15:37 → T4-B 21:06
PROVIDERS: ADMIT Internal Medicine; ATTEND Student in an Organized Health Care Education/Training Program
DX: T83.511A Infection and inflammatory reaction due to indwelling urethral catheter, initial encounter (principal); M54.9 Dorsalgia, unspecified; G89.29 Other chronic pain; N18.30 Chronic kidney disease, stage 3 unspecified; E11.22 Type 2 diabetes mellitus with diabetic chronic kidney disease; I12.9 Hypertensive chronic kidney disease with stage 1 through stage 4 chronic kidney disease, or unspecified chronic kidney disease; Y84.6 Urinary catheterization as the cause of abnormal reaction of the patient, or of later complication, without mention of misadventure at the time of the procedure; N39.0 Urinary tract infection, site not specified; R31.9 Hematuria, unspecified; G47.33 Obstructive sleep apnea (adult) (pediatric); I48.0 Paroxysmal atrial fibrillation; E78.5 Hyperlipidemia, unspecified; Z86.73 Personal history of transient ischemic attack (TIA), and cerebral infarction without residual deficits; Z89.429 Acquired absence of other toe(s), unspecified side; Z85.46 Personal history of malignant neoplasm of prostate; Z98.890 Other specified postprocedural states; Z88.2 Allergy status to sulfonamides; Z91.041 Radiographic dye allergy status; Z88.8 Allergy status to other drugs, medicaments and biological substances; Z90.49 Acquired absence of other specified parts of digestive tract; Z79.4 Long term (current) use of insulin; Z79.899 Other long term (current) drug therapy; Z79.82 Long term (current) use of aspirin
CPT/HCPCS: 11042; 36415; 36416; 70450; 80048; 80053; 81001; 83605; 84443; 85025; 87040; 87077; 87086; 87186; 96374; 96375; 97139; J0692; J0696; J1815; J2185; J7030

== ENCOUNTER 2025-07-22 16:47 | Emergency (ER) | payer MEDICARE ==
[2025-07-22 17:53] LABS: #Basophils 0.04 10x3/uL (0.0-0.2); #Eosinophils 0.41 10x3/uL (0.0-0.7); #Monocytes 0.42 10x3/uL (0.11-0.59); #Neutrophils 6.33 10x3/uL (1.40-6.50); %Basophils 0.5 % (0.0-1.0); %Eosinophils 4.6 % (0.0-10.0); %Lymphocytes 18.5 % (21.0-51.0); %Monocytes 4.7 % (0.0-10.0); %Neutrophils 71.2 % (42.0-75.0); Hematocrit 33.2 % (42.0-52.0); Hemoglobin 10.6 g/dL (14.0-18.0); Mean Corpuscular Hemoglobin 27.9 pg (27.0-31.0); Mean Corpuscular Volume 87.4 fL (78.0-98.0); Platelet Count 232 10x3/uL (130-400); Red Blood Cell (RBC) Count 3.80 mill/uL (4.70-6.10); White Blood Cell (WBC) Count 8.88 10x3/uL (4.8-10.8)
[2025-07-22 18:03] LABS: Specific Gravity, Urine 1.015 (1.005-1.030)
[2025-07-22 18:04] LABS: Bacteria/HPF 2+ HPF (None Seen); CAUTI Indications for Culture Acute Hematuria; Glucose, Urine (Dipstick) Unable to Interpret mg/dL (Negative); Leukocyte Unable to Interpret (Negative); Protein, Urine (Dipstick) Unable to Interpret mg/dL (Neg-Trace); RBC/HPF Greater than 50 HPF (0-3)
[2025-07-22 18:05] LABS: Urine Culture Reflex No No
[2025-07-22 18:12] LABS: ALT (SGPT) 12 U/L (Less than 45); AST (SGOT) 19 U/L (11-34); Albumin 3.8 g/dL (3.1-4.5); Alkaline Phosphatase 41 U/L (40-110); Anion Gap 14 mmol/L (10-20); BUN (Urea Nitrogen) 21 mg/dL (8.4-25.7); Bilirubin, Total 0.5 mg/dL (0.3-1.2); Calc. Creatinine Clearance 0 mL/min (70-130); Calcium 9.9 mg/dL (7.8-10.44); Carbon Dioxide 25 mmol/L (23-31); Chloride 101 mmol/L (98-107); Globulin 3.3 g/dL (2.4-3.5); Glucose 189 mg/dL (80-115); Potassium 5.0 mmol/L (3.5-5.1); Sodium 135 mmol/L (136-145)
== END 2025-07-22 23:12 | disposition home or self-care (01) ==
LOC: ERS 16:47
DX: N39.0 Urinary tract infection, site not specified (principal); T83.098A Other mechanical complication of other urinary catheter, initial encounter; I48.91 Unspecified atrial fibrillation; E11.9 Type 2 diabetes mellitus without complications; N18.30 Chronic kidney disease, stage 3 unspecified; Z86.73 Personal history of transient ischemic attack (TIA), and cerebral infarction without residual deficits; Z79.01 Long term (current) use of anticoagulants; Z79.82 Long term (current) use of aspirin; Z79.899 Other long term (current) drug therapy
CPT/HCPCS: 36415; 74176; 80053; 81001; 83605; 85025; 87040